=== PATIENT | female | born 1965 | race Caucasian/White ===

== ENCOUNTER → 2017-09-25 18:19 | Outpatient (REF) | payer OTHER, SELFPAY | LOC: NCHCN 18:19 | PROVIDERS: PCP Nurse Practitioner Family; Visit Provider Physician Assistant Medical | DX: M54.5 Low back pain (principal) | CPT/HCPCS: 87086 ==

== ENCOUNTER → 2017-10-17 02:23 | Outpatient (CLI) | payer OTHER, SELFPAY ==
--- NOTE | 2017-10-17 16:48 | DI.REPORT_ITS ---
SYMPTOM/DIAGNOSIS: AFTER CARE CUSTODIAL USE OF STEROIDS, Z51.81 DEXA SCAN: A scanogram of the dorsolumbar spine is unremarkable. For the left hip, a T score of -1.7 and a Z score of -1.1 are consistent with osteopenia and are consistent with a -22.5% decrease in mineralization when compared with the 05/12/2005 exam. For the lumbar spine, a T score of -2.4 and a Z score of -1.4 are consistent with osteopenia and an increased fracture risk and represent a -17.1% interval decrease in mineralization when compared with the prior study of 05/12/2005. For the left forearm, a T score of -2.1 and a Z score of -1.2 are consistent with osteopenia and an increased fracture risk.
== END ==
PROVIDERS: PCP Nurse Practitioner Family; Visit Provider Physician Assistant Medical
DX: M85.88 Other specified disorders of bone density and structure, other site (principal); Z51.81 Encounter for therapeutic drug level monitoring; Z79.52 Long term (current) use of systemic steroids
CPT/HCPCS: 77080

== ENCOUNTER 2017-10-27 09:30 | Outpatient (CLI) | payer OTHER, SELFPAY ==
[2017-10-27 10:38] LABS: ALT 30 U/L (12-78); AST 34 U/L (15-37); Albumin 3.7 g/dL (3.4-5.0); Alkaline Phosphatase 78 U/L (46-116); Bilirubin, Total 0.4 mg/dL (0.2-1.0); Total Protein 7.6 g/dL (6.4-8.2)
[2017-10-27 10:54] LABS: Iron 28 ug/dL (50-175); Total Iron Binding Capacity 419 ug/dL (250-450); Transferrin Sat 7 % (15-50)
== END 2017-10-27 09:50 ==
PROVIDERS: PCP Nurse Practitioner Family; Visit Provider Internal Medicine
DX: K75.4 Autoimmune hepatitis (principal); K74.60 Unspecified cirrhosis of liver
CPT/HCPCS: 36415; 80076; 83540; 83550

== ENCOUNTER 2017-11-01 07:07 | Outpatient (CLI) | payer OTHER, SELFPAY ==
[2017-11-01 10:59] LABS: Abs Immature Grans 0.01 k/cumm (0.0-0.09); Absolute Basophil Count 0.09 k/cumm (0.0-0.2); Absolute Eosinophil Count 0.01 k/cumm (0.0-0.7); Absolute Neutrophil Count 3.36 k/cumm (1.2-6.7); Basophils % 1.9; Eosinophils % 0.2; HCT 31.9 % (36.0-46.0); HGB 9.9 g/dL (12.0-15.5); Immature Grans % 0.2; Lymphocytes % 21.4; Mean Corpuscular Hemoglobin 24.8 pg (27.0-33.0); Mean Corpuscular Volume 79.9 fL (80-95); Mean Platelet Volume 9.8 fL (8.0-11.0); Monocytes % 4.3; Platelet Count 212 x1000/uL (130-400); RBC 3.99 m/cumm (4.00-5.20); RBC Distribution Width 18.9 % (11.7-14.6); White Blood Cell Count 4.67 k/cumm (4.4-10.8)
[2017-11-01 12:14] LABS: Ferritin 6 ng/mL (8-388); Vitamin B12 629 pg/mL (193-986)
[2017-11-03 12:48] LABS: Ascorbic Acid (Vit C), Plasma 0.2 mg/dL (0.4 - 2.0)
[2017-11-03 15:36] LABS: Thiamine (Vitamin B1), WB 122 nmol/L (70-180)
== END 2017-11-01 07:27 ==
LOC: LBO 07:17 → NCHCO 07:38
PROVIDERS: PCP Nurse Practitioner Family; Visit Provider Physician Assistant Medical
DX: D64.9 Anemia, unspecified (principal); K75.4 Autoimmune hepatitis
CPT/HCPCS: 36415; 82180; 82607; 82728; 84425; 85025

== ENCOUNTER 2017-11-03 10:27 | Outpatient (RCR) | payer OTHER, SELFPAY ==
[2017-11-03] MEDS: IRON SUCROSE COMPLEX 200 MG in Normal Saline 100 ML 110 MG IVPB (11:16)
[2017-11-03] MEDS: Normal Saline Flush 10 ML SYR IVP (11:17)
== END 2017-11-19 23:59 | disposition home or self-care (01) ==
LOC: INF 10:27
PROVIDERS: PCP Nurse Practitioner Family; Visit Provider Family Medicine
DX: D50.9 Iron deficiency anemia, unspecified (principal)
CPT/HCPCS: 96365; J1756

== ENCOUNTER 2017-11-13 15:23 | Outpatient (CLI) | payer OTHER, SELFPAY ==
--- NOTE | 2017-11-13 13:17 | DI.RAD_ITS ---
SYMPTOMS/DIAGNOSIS: RIGHT HIP PAIN PELVIS AND RIGHT HIP: Two views. Comparison is 03/17/13. There is mild narrowing of the right hip joint space. Subchondral sclerosis is present. Osteophytes are seen arising from the right femoral head. No acute fracture or dislocation is seen. The left hip is well maintained, as are the sacroiliac joints and symphysis pubis. Suture material is seen overlying the lower pelvis. The soft tissues are otherwise unremarkable. IMPRESSION: Mild to moderate degenerative changes of the right hip.
== END 2017-11-13 15:43 ==
PROVIDERS: PCP Nurse Practitioner Family; Visit Provider Student in an Organized Health Care Education/Training Program
DX: M25.551 Pain in right hip (principal); M16.11 Unilateral primary osteoarthritis, right hip
CPT/HCPCS: 73502

== ENCOUNTER 2017-11-30 01:55 | Outpatient (RCR) | payer OTHER, SELFPAY ==
[2017-11-30] MEDS: IRON SUCROSE COMPLEX 200 MG in Normal Saline 100 ML 110 MG IVPB (07:13)
[2017-11-30] MEDS: Normal Saline Flush 10 ML SYR IVP (07:21)
== END 2017-12-20 23:59 | disposition home or self-care (01) ==
LOC: INF 01:55
PROVIDERS: PCP Nurse Practitioner Family; Visit Provider Family Medicine
DX: D50.9 Iron deficiency anemia, unspecified (principal)
CPT/HCPCS: 96365; J1756

== ENCOUNTER 2017-12-08 01:09 | Outpatient (CLI) | payer OTHER, SELFPAY ==
[2017-12-08 09:04] LABS: CREATININE 0.73 mg/dL (0.55-1.02)
--- NOTE | 2017-12-08 09:23 | DI.CT_ITS ---
SYMPTOM/DIAGNOSIS: TOBACCO USE DISORDER, F17.[address]: A noncontrast chest CT was performed. Images obtained through the upper abdomen show unremarkable appearance of visualized portions of the liver, spleen , kidneys, adrenals and pancreas. There appears to have been previous gastric surgery. No pleural effusion or pleural based mass identified. No gross mediastinal or hilar adenopathy by noncontrast criteria. The lungs are clear with a 3 mm. in diameter, triangular shaped left lower lobe nodule with appearance suggesting intrapulmonary lymph node. No suspicious nodule identified. CONCLUSION: Negative chest CT. Follow up chest CT suggested in 12 months to re-evaluate probably benign 3 mm. left lower lobe nodule.
--- NOTE | 2017-12-08 09:35 | DI.CT_ITS ---
SYMPTOM/DIAGNOSIS: HEMATURIA, R31.[address]: CT examination of the abdomen and pelvis was performed utilizing CT urogram protocol. A noncontrast examination shows splenic calcifications but no urinary tract calcification. There is evidence of previous gastric surgery and previous abdominal ventral hernia repair surgery. Liver is unremarkable in appearance. Spleen shows a non enhancing, low attenuation, lenticular 33 by 11 mm. in diameter medial region of decreased attenuation suggesting a small subcapsular fluid collection of the spleen. The pancreas appears intact. Gallbladder non visualized and may have been surgically removed. No biliary dilatation is seen. No vascular abnormality identified on venous phase imaging. No abdominal or pelvic adenopathy. No recurrent hernia. No focal bowel pathology. The renal cortex shows normal symmetrical enhancement bilaterally. No nephrolithiasis, ureterolithiasis or hydronephrosis. No renal mass identified. Urinary bladder is unremarkable in appearance on delayed imaging. Ureters appear unremarkable on delayed imaging. CONCLUSION: Negative CT urogram. Incidental finding of small subcapsular splenic fluid collection is nonspecific but could represent an old hematoma, please correlate clinically.
[2017-12-08] MEDS: Omnipaque 350 MG/ML 100 ML BTL IJ (10:47)
== END 2017-12-08 01:29 ==
PROVIDERS: PCP Nurse Practitioner Family; Visit Provider Physician Assistant Medical
DX: F17.200 Nicotine dependence, unspecified, uncomplicated (principal); R91.1 Solitary pulmonary nodule; R31.9 Hematuria, unspecified
CPT/HCPCS: 36415; 71250; 74178; 82565; J3490

== ENCOUNTER 2018-01-16 14:01 | Outpatient (REF) | payer OTHER, SELFPAY | END 2018-01-16 14:21 | LOC: LBN 14:01 | PROVIDERS: PCP Nurse Practitioner Family; Visit Provider Nurse Practitioner Gerontology | DX: R31.9 Hematuria, unspecified (principal) | CPT/HCPCS: 81015 ==

== ENCOUNTER 2018-01-18 13:43 | Outpatient (REF) | payer OTHER, SELFPAY ==
[2018-01-18 16:22] LABS: Bacteria Many HPF (Negative); C & S Indicated? No/Sq. Contamination; Casts Negative LPF (Negative); Crystals Many Amorphous HPF (Negative); Epithelial Cells Many HPF (Negative); Mucus Heavy (Negative); RBC 20-50 (0-2); WBC 20-50 HPF (0-5)
== END 2018-01-18 14:03 ==
LOC: LBN 13:43
PROVIDERS: PCP Nurse Practitioner Family; Visit Provider Nurse Practitioner Gerontology
DX: R31.9 Hematuria, unspecified (principal)
CPT/HCPCS: 81015

== ENCOUNTER 2018-06-09 14:52 | Emergency (ER) | payer OTHER, SELFPAY ==
[2018-06-09 15:11] VITALS: BP 108/62; PULSE 78; RESP 18; TEMP 36.6; O2SAT 99
[2018-06-09 16:05] LABS: Bilirubin Negative (Negative); Blood Trace-intact (Negative); Clarity Clear; Glucose Negative (Negative); Ketones Trace mg/dL (Negative); Leukocyte Esterase Negative (Negative); Nitrite Negative (Negative); Specific Gravity >= 1.030 (1.005-1.025); Urobilinogen 0.2 EU/dL (Up TO 0.2)
[2018-06-09 16:20] LABS: Bacteria Negative HPF (Negative); C & S Indicated? No; Casts Negative LPF (Negative); Crystals Negative HPF (Negative); Epithelial Cells Negative HPF (Negative); Mucus Negative (Negative); Other Cells Negative (Negative); WBC 0-2 HPF (0-5)
[2018-06-09 16:22] LABS: Abs Immature Grans 0.01 k/cumm (0.0-0.09); Absolute Basophil Count 0.03 k/cumm (0.0-0.2); Absolute Eosinophil Count 0.03 k/cumm (0.0-0.7); Absolute Lymphocyte Count 1.77 k/cumm (1.2-3.4); Absolute Monocyte Count 0.39 k/cumm (0.11-0.7); Absolute Neutrophil Count 3.12 k/cumm (1.2-6.7); Basophils % 0.6; Eosinophils % 0.6; HCT 38.5 % (36.0-46.0); HGB 12.4 g/dL (12.0-15.5); Immature Grans % 0.2; Lymphocytes % 33.1; Mean Corp. HGB Concentration 32.2 g/dL (32.0-36.0); Mean Corpuscular Hemoglobin 30.8 pg (27.0-33.0); Mean Corpuscular Volume 95.8 fL (80-95); Mean Platelet Volume 10.4 fL (8.0-11.0); Monocytes % 7.3; Neutrophils % 58.2; Platelet Count 209 x1000/uL (130-400); RBC 4.02 m/cumm (4.00-5.20); White Blood Cell Count 5.35 k/cumm (4.4-10.8)
[2018-06-09 16:39] LABS: ALT 37 U/L (12-78); AST 30 U/L (15-37); Albumin 3.5 g/dL (3.4-5.0); Alkaline Phosphatase 79 U/L (46-116); Anion Gap 6.3 mmol/L (3-11); BUN 17 mg/dL (7-18); Bilirubin, Total 0.2 mg/dL (0.2-1.0); CO2 30.7 mmol/L (21.0-32.0); Calcium 8.4 mg/dL (8.5-10.1); Chloride 102 mmol/L (98-107); Glucose 81 mg/dL (70-100); Potassium 4.1 mmol/L (3.5-5.1); Sodium 139 mmol/L (136-145); Total Protein 7.7 g/dL (6.4-8.2)
--- NOTE | 2018-06-09 17:09 | W.ED.GENAD ---
Discharge Plan Disposition Patient Disposition: HOME Condition: Stable Discharge Details Chief Complaint: Headache Clinical Impression: Sinusitis, Acute flank pain Primary Care Provider: Deborah Rao ED Provider: Stiven Carrillo Home Meds and New Rx's Prescriptions: Continued azathioprine 50 MG tablet 50 mg PO DAILY RF: 0 tramadol 50 MG tablet 50 mg PO PRN PRNRF: 0 Metamucil [facility] Fiber 660 GM powder 1 tbs PO DAILY RF: 0 hydroxychloroquine 200 MG tablet 200 mg PO BID RF: 0 Otc Lax RF: 0 prednisone 20 MG tablet 20 mg PO DAILY Qty: 14 RF: 1 ibuprofen 200 mg Capsule 400 mg PO DIRECTED RF: 0 Tylenol Sinus Severe 5-325-200 mg Tablet 2 tab RF: 0 Discharge Instructions Instructions: Sinusitis (ED), Flank Pain (ED) Additional Instructions: Please stay well-hydrated during illness and take [id number] Flonase 1 to 2 sprays each nostril daily for the next week and use Sudafed as needed for nasal congestion just take as directed on packaging. Return immediately to the emergency department for any new or worsening symptoms, fever chills, worsening flank pain or problems with urination. If not improving over the next couple days please follow-up with your primary care provider for reassessment as needed Referrals: Deborah Rao [Primary Care Provider] - (As needed for reassessment) Discharge Data Discharge Date/Time-TO BE ENTERED AT DEPARTURE: 06/09/18 17:20 Medical Decision Making Patient presenting the emergency department for chief complaint of sinus pain. Patient states approximately 10 days ago she began having left-sided sinus pressure and saw her primary care provider that put her on ciprofloxacin. She took this for the full course and finished 4 days ago but throughout the therapy she had only minimal improvement of left-sided facial discomfort and then developed right-sided facial discomfort and sinus pressure while on the ciprofloxacin. This discomfort has continued in spite of anabolic therapy. Patient then states over the past couple days she has noted some flank pain and is concern for a urinary tract infection. Patient denies any hematuria, dysuria or burning with urination. Physical exam shows frontal ethmoid and maxillary sinus tenderness on the right side but not on left side, no lymphadenopathy, afebrile nontoxic well-appearing patient with no obvious neurological dysfunction. Patient does note some flank pain on the right side but states that it is starting from the back and radiating through the flank. Patient denies any injury or trauma or overuse that would have caused back pain. Patient states ongoing liver issues with standing orders for urinalysis and liver testing. Patient is requesting testing due to her use of acetaminophen recently for her cold symptoms along with ibuprofen for her sinus pain. I feel that this is reasonable. Review of labs show no leukocytosis, no anemia, within normal range of kidney function and no acute hepatic abnormalities on CMP are noted. Patient reassessed and continued to state discomfort to the flank. She was offered CT scan for question of secondary etiologies including kidney stones or hepatic dysfunction. Patient denies CT scan at this time and states she would prefer to go home. Given that antibiotics did not improve patient's symptoms and she is afebrile nontoxic in appearance I do not feel that secondary antibiotics for the sinus complaint are needed and concern for more viral or allergenic etiology. Again given non-worrisome exam findings I do not feel that head CT is needed or warranted but this was offered to patient which she did also refuse CT scan of the sinuses. patient was recommended to use Sudafed and Flonase for her symptoms and follow-up with her primary care provider for reassessment. After discussion of diagnosis and plan of care patient has no further needs, questions, or concerns and states clear understanding to return to the emergency department for any worsening symptoms. HPI General Mode of arrival: ambulatory. Date/Time Provider Initiated Documentation: 06/09/18 15:27. Limitations to Documentation: no limitations. Information obtained by: patient and RN notes reviewed. History of Present Illness 53 year old F presents to the emergency department with the chief complaint of sinus pressure, described as moderate, with intensity rated at 9. Quality is described as aching, and is localized to the face. Patient started experiencing this day(s) (10) and it has been constant. No relieving factors improve symptom(s), Related Data Home Medications Medication Instructions Recorded Confirmed azathioprine 50 mg PO DAILY 01/14/13 06/09/18 tramadol 50 mg PO PRN PRN 01/14/13 06/09/18 Metamucil [facility] Fiber 1 tbs PO DAILY 03/17/13 06/09/18 Otc Lax 08/19/14 01/30/18 hydroxychloroquine 200 mg PO BID 08/19/14 06/09/18 prednisone 20 mg PO DAILY #14 tab 08/19/14 06/09/18 Tylenol Sinus Severe 2 tab 06/09/18 ibuprofen 400 mg PO DIRECTED 06/09/18 06/09/18 Previous Rx's Medication Instructions Recorded prednisone 20 mg PO DAILY #14 tab 08/19/14 Allergies Allergy/AdvReac Type Severity Reaction Status Date / Time enoxaparin sodium Allergy Unverified 06/09/18 15:15 [From Lovenox] sumatriptan [From Imitrex] Allergy Unverified 06/09/18 15:15 sumatriptan succinate Allergy Unverified 06/09/18 15:15 [From Imitrex] acetaminophen [From Tylenol] AdvReac hx Unverified 06/09/18 15:15 hepeatits e NSAIDS (Non-Steroidal AdvReac Unverified 06/09/18 15:15 Anti-Inflamma General Stated Complaint: Headache MANDA: 3 Review of Systems Constitutional Reports chills, Denies fever(s) and Reports malaise Eyes Denies change in vision ENT Reports as per HPI, Reports nasal congestion, Reports sinus pain, Reports sinus pressure and Reports sore throat Cardiovascular Denies chest pain Respiratory Denies cough Gastrointestinal Denies abdominal pain, Denies nausea and Denies vomiting Genitourinary Reports flank pain Musculoskeletal Reports back pain Integumentary/Breasts Denies rash PFSH Medical History ARTHRITIS NOS AUTOIMMUNE HEPATIT GASTRIC BYPASS H/O ANXIETY/DEPRESSION H/O CERVICAL CA H/O HTN Hyperlipidemia Intertrigo Obesity SURGICALLY INDUCED MENOPAUSE TOBACCO USE DISORD Surgical History Abdominal hysterectomy Appendectomy Cholecystectomy Gastric Bypass Oophrectomy, Left Oophrectomy, Right Tonsillectomy and adenoidectomy Social History Smoking/Tobacco Use Status: Current-Occasional Alcohol Intake: never Drug use: Never Do you feel safe at home: Yes Do you feel safe in your relationship?: Yes Exam Const General: cooperative, comfortable and no acute distress Orientation: alert and awake HENMT Head: normal to inspection, normocephalic and atraumatic Ears: hearing grossly normal bilaterally and TM's normal bilaterally General nose exam: external nose normal Face and sinus: no erythema and sinus tenderness (right side) frontal, ethmoid and maxillary Mouth: oral mucosae normal, no drooling, no muffled voice and no trismus Throat: posterior oropharynx normal, tonsils normal and uvula midline Neck Neck: normal visual inspection, full ROM, no lymphadenopathy, no meningeal signs, trachea midline and supple Resp Effort & Inspection: normal respiratory effort and able to speak in complete sentences Auscultation: clear to auscultation bilaterally Cardio Rate: regular rate Rhythm: regular rhythm Heart Sounds: S1 normal, S2 normal, normal S1 and S2, no click, no gallops, no murmurs and no rubs Back/Spine/Pelvis Thoracic/Lumbar Spine: paraspinal tenderness (bilateral difuse), No thoraco-lumbar ROM limited, No thoracic spinal tenderness and No lumbar spinal tenderness Skin General skin exam: no rashes or lesions noted and dry skin (warm) Neuro General: alert, awake, oriented x3, gait normal and moves all extremities Cognition: normal cognition Speech: speech normal Course Vital Signs Temperature 36.6 C 06/09/18 15:11 Pulse 78 06/09/18 15:11 Respiratory Rate 18 06/09/18 15:11 Blood Pressure 108/62 06/09/18 15:11 Pulse Oximetry 99 06/09/18 15:11 Temperature 36.6 C 06/09/18 15:11 Temperature Source Temporal Artery Scan 06/09/18 15:11 Pulse 78 06/09/18 15:11 Respiratory Rate 18 06/09/18 15:11 Respiratory Effort 06/09/18 16:21 Blood Pressure 108/62 06/09/18 15:11 Blood Pressure Position Sitting 06/09/18 15:11 Pulse Oximetry 99 06/09/18 15:11 Oxygen Delivery Method Room Air 06/09/18 15:11 Oxygen Flow Rate 0 06/09/18 15:11 Pain Level 10 06/09/18 15:11 Lab/Test Results Lab/Test Results: Laboratory Tests Range/Units 06/09/18 06/09/18 06/09/18 15:55 16:05 16:05 WBC (4.4-10.8) k/cumm 5.35 RBC (4.00-5.20) m/cumm 4.02 Hgb (12.0-15.5) g/dL 12.4 Hct (36.0-46.0) % 38.5 MCV (80-95) fL 95.8 H MCH (27.0-33.0) pg 30.8 MCHC (32.0-36.0) g/dL 32.2 RDW (11.7-14.6) % 16.0 H Plt Count (130-400) x1000/uL 209 MPV (8.0-11.0) fL 10.4 Immature Gran % 0.2 Neutrophils % 58.2 Lymphocytes % 33.1 Monocytes % 7.3 Eosinophils % 0.6 Basophils % 0.6 Absolute Neutrophils (1.2-6.7) k/cumm 3.12 Absolute Lymphocytes (1.2-3.4) k/cumm 1.77 Absolute Monocytes (0.11-0.7) k/cumm 0.39 Absolute Eosinophils (0.0-0.7) k/cumm 0.03 Absolute Basophils (0.0-0.2) k/cumm 0.03 Sodium (136-145) mmol/L 139 Potassium (3.5-5.1) mmol/L 4.1 Chloride (98-107) mmol/L 102 Carbon Dioxide (21.0-32.0) mmol/L 30.7 Anion Gap (3-11) mmol/L 6.3 BUN (7-18) mg/dL 17 Creatinine (0.55-1.02) mg/dL 0.90 Estimated GFR/1.73 m2 (mL/min/1.73m2) >= 60.00 Glucose (70-100) mg/dL 81 Calcium (8.5-10.1) mg/dL 8.4 L Total Bilirubin (0.2-1.0) mg/dL 0.2 AST (15-37) U/L 30 ALT (12-78) U/L 37 Alkaline Phosphatase (46-116) U/L 79 Total Protein (6.4-8.2) g/dL 7.7 Albumin (3.4-5.0) g/dL 3.5 Urine Color (Yellow) Yellow Urine Clarity Clear Urine pH (5-8) 7.0 Ur Specific [place] (1.005-1.025) >= 1.030 H Urine Protein (Negative) mg/dL Trace H Urine Ketones (Negative) mg/dL Trace H Urine Blood (Negative) Trace-intact H Urine Nitrite (Negative) Negative Urine Bilirubin (Negative) Negative Urine Urobilinogen (Up TO 0.2) EU/dL 0.2 Ur Leukocyte Esterase (Negative) Negative Urine RBC (0-2) 3-5 H Urine WBC (0-5) HPF 0-2 Ur Epithelial Cells (Negative) HPF Negative Urine Crystals (Negative) HPF Negative Urine Bacteria (Negative) HPF Negative Urine Casts (Negative) LPF Negative Urine Mucus (Negative) Negative Urine Other (Negative) Negative Ur Culture Indicated? No Urine Glucose (Negative) mg/dL Negative
[2018-06-09 17:19] VITALS: BP 108/62; PULSE 78; RESP 18; TEMP 36.6; O2SAT 99
== END 2018-06-09 17:20 | disposition home or self-care (01) ==
PROVIDERS: Emergency Provider Nurse Practitioner Family; PCP Nurse Practitioner Family
DX: J01.90 Acute sinusitis, unspecified (principal); R10.11 Right upper quadrant pain; K75.4 Autoimmune hepatitis; I10 Essential (primary) hypertension; F17.210 Nicotine dependence, cigarettes, uncomplicated
CPT/HCPCS: 36415; 80053; 99283; 81003; 81015; 85025

== ENCOUNTER 2018-06-15 15:16 | Outpatient (CLI) | payer OTHER, SELFPAY ==
[2018-06-15 18:32] LABS: ESR 30 MM/HR (0-30)
== END 2018-06-15 15:36 ==
PROVIDERS: PCP Nurse Practitioner Family; Visit Provider Family Medicine
DX: R51 Headache (principal)
CPT/HCPCS: 36415; 85652

== ENCOUNTER 2018-10-01 18:27 | Outpatient (REF) | payer OTHER, SELFPAY | END 2018-10-01 18:47 | LOC: NCHCN 18:27 | PROVIDERS: PCP Nurse Practitioner Family; Visit Provider Nurse Practitioner Family | DX: R10.9 Unspecified abdominal pain (principal) | CPT/HCPCS: 87086 ==

== ENCOUNTER 2018-10-05 16:34 | Outpatient (REF) | payer OTHER, SELFPAY ==
[2018-10-05 19:18] LABS: Calculated LDL 111 mg/dL; Cholesterol 172 mg/dL (50-200); Glucose 87 mg/dL (70-100); HDL Cholesterol 40 mg/dL (40-60); Triglyceride 108 mg/dL (30-150)
== END 2018-10-05 16:54 ==
LOC: NCHCN 16:34
PROVIDERS: PCP Nurse Practitioner Family; Visit Provider Nurse Practitioner Family
DX: Z00.00 Encounter for general adult medical examination without abnormal findings (principal); Z13.1 Encounter for screening for diabetes mellitus; Z13.220 Encounter for screening for lipoid disorders
CPT/HCPCS: 80061; 82947; 83721

== ENCOUNTER 2018-10-15 01:17 | Outpatient (CLI) | payer OTHER, SELFPAY ==
--- NOTE | 2018-10-15 12:41 | DI.MAMMO_ITS ---
SYMPTOM/DIAGNOSIS: SCREENING, [facility] Z00.00 BILATERAL SCREENING MAMMOGRAM: Mammograms were interpreted according to the usual protocol including computer analysis with CAD system, tomosynthesis and C view imaging. Comparison is made with 2015. The breasts are composed of scattered fibroglandular densities, breast density category B. No suspicious masses or suspicious microcalcifications are seen. There has been no significant change. IMPRESSION: Category 1, negative mammogram. Yearly screening mammography is recommended. Breast density category B. SA ASSESSMENT OF FINDINGS: Negative. Category 1. Patient will receive a letter notifying them of these results. BI-RADS category B. There are scattered areas of fibroglandular density.
== END 2018-10-15 01:37 ==
PROVIDERS: PCP Nurse Practitioner Family; Visit Provider Nurse Practitioner Family
DX: Z00.00 Encounter for general adult medical examination without abnormal findings (principal); Z12.31 Encounter for screening mammogram for malignant neoplasm of breast
CPT/HCPCS: 77063; 77067

== ENCOUNTER 2019-01-05 06:34 | Outpatient (CLI) | payer OTHER, SELFPAY ==
[2019-01-05 10:32] LABS: ALT 142 U/L (14-59); AST 87 U/L (15-37); Albumin 3.8 g/dL (3.4-5.0); Alkaline Phosphatase 89 U/L (46-116); Bilirubin, Total 0.4 mg/dL (0.2-1.0); Total Protein 7.6 g/dL (6.4-8.2)
== END 2019-01-05 06:54 ==
PROVIDERS: PCP Nurse Practitioner Family; Visit Provider Internal Medicine Gastroenterology
DX: K75.4 Autoimmune hepatitis (principal)
CPT/HCPCS: 36415; 80076

== ENCOUNTER 2019-01-12 03:58 | Outpatient (CLI) | payer OTHER, SELFPAY ==
[2019-01-12 11:23] LABS: ALT 93 U/L (14-59); AST 51 U/L (15-37); Albumin 3.6 g/dL (3.4-5.0); Alkaline Phosphatase 76 U/L (46-116); Bilirubin, Direct 0.14 mg/dL (0.00-0.20); Bilirubin, Total 0.5 mg/dL (0.2-1.0); Total Protein 7.1 g/dL (6.4-8.2)
== END 2019-01-12 04:18 ==
PROVIDERS: PCP Nurse Practitioner Family; Visit Provider Internal Medicine Gastroenterology
DX: K75.4 Autoimmune hepatitis (principal)
CPT/HCPCS: 36415; 80076

== ENCOUNTER 2019-02-01 06:18 | Outpatient (CLI) | payer OTHER, SELFPAY ==
[2019-02-01 08:13] LABS: ALT 55 U/L (14-59); AST 38 U/L (15-37); Albumin 3.5 g/dL (3.4-5.0); Alkaline Phosphatase 58 U/L (46-116); Bilirubin, Total 0.4 mg/dL (0.2-1.0); Total Protein 6.7 g/dL (6.4-8.2)
== END 2019-02-01 06:38 ==
PROVIDERS: PCP Nurse Practitioner Family; Visit Provider Internal Medicine Gastroenterology
DX: K75.4 Autoimmune hepatitis (principal)
CPT/HCPCS: 36415; 80076

== ENCOUNTER 2019-02-08 01:15 | Outpatient (CLI) | payer OTHER, SELFPAY ==
[2019-02-08 08:19] LABS: Abs Immature Grans 0.01 k/cumm (0.0-0.09); Absolute Basophil Count 0.02 k/cumm (0.0-0.2); Absolute Eosinophil Count 0.01 k/cumm (0.0-0.7); Absolute Lymphocyte Count 0.93 k/cumm (1.2-3.4); Absolute Monocyte Count 0.24 k/cumm (0.11-0.7); Absolute Neutrophil Count 4.45 k/cumm (1.2-6.7); Basophils % 0.4; Eosinophils % 0.2; HCT 38.1 % (36.0-46.0); HGB 11.9 g/dL (12.0-15.5); Immature Grans % 0.2; Lymphocytes % 16.4; Mean Corp. HGB Concentration 31.2 g/dL (32.0-36.0); Mean Corpuscular Volume 89.6 fL (80-95); Monocytes % 4.2; Neutrophils % 78.6; Platelet Count 213 x1000/uL (130-400); RBC 4.25 m/cumm (4.00-5.20); RBC Distribution Width 15.6 % (11.7-14.6); White Blood Cell Count 5.66 k/cumm (4.4-10.8)
[2019-02-08 09:19] LABS: ALT 47 U/L (14-59); AST 33 U/L (15-37); Albumin 3.6 g/dL (3.4-5.0); Alkaline Phosphatase 63 U/L (46-116); Anion Gap 9.4 mmol/L (3-11); BUN 15 mg/dL (7-18); Bilirubin, Total 0.4 mg/dL (0.2-1.0); CO2 28.6 mmol/L (21.0-32.0); CREATININE 0.85 mg/dL (0.55-1.02); Calcium 8.6 mg/dL (8.5-10.1); Chloride 105 mmol/L (98-107); Glucose 91 mg/dL (74-106); Sodium 143 mmol/L (136-145)
== END 2019-02-08 01:35 ==
PROVIDERS: PCP Nurse Practitioner Family; Visit Provider Internal Medicine Gastroenterology
DX: K75.4 Autoimmune hepatitis (principal)
CPT/HCPCS: 36415; 80048; 80076; 85025

== ENCOUNTER 2019-03-01 05:54 | Outpatient (CLI) | payer OTHER, SELFPAY ==
[2019-03-01 08:19] LABS: Abs Immature Grans 0.01 k/cumm (0.0-0.09); Absolute Basophil Count 0.05 k/cumm (0.0-0.2); Absolute Eosinophil Count 0.02 k/cumm (0.0-0.7); Absolute Lymphocyte Count 0.86 k/cumm (1.2-3.4); Absolute Monocyte Count 0.26 k/cumm (0.11-0.7); Absolute Neutrophil Count 3.66 k/cumm (1.2-6.7); Eosinophils % 0.4; HCT 37.9 % (36.0-46.0); HGB 11.7 g/dL (12.0-15.5); Immature Grans % 0.2 %; Lymphocytes % 17.7; Mean Corp. HGB Concentration 30.9 g/dL (32.0-36.0); Mean Corpuscular Hemoglobin 27.5 pg (27.0-33.0); Mean Platelet Volume 9.7 fL (8.0-11.0); Monocytes % 5.3; Neutrophils % 75.4; Platelet Count 195 x1000/uL (130-400); RBC 4.26 m/cumm (4.00-5.20); White Blood Cell Count 4.86 k/cumm (4.4-10.8)
[2019-03-01 08:35] LABS: ALT 42 U/L (14-59); AST 41 U/L (15-37); Albumin 3.5 g/dL (3.4-5.0); Alkaline Phosphatase 70 U/L (46-116); Anion Gap 8.5 mmol/L (3-11); BUN 13 mg/dL (7-18); Bilirubin, Direct 0.07 mg/dL (0.00-0.20); Bilirubin, Total 0.3 mg/dL (0.2-1.0); CO2 28.5 mmol/L (21.0-32.0); CREATININE 0.66 mg/dL (0.55-1.02); Calcium 8.5 mg/dL (8.5-10.1); Chloride 107 mmol/L (98-107); Glucose 93 mg/dL (74-106); Sodium 144 mmol/L (136-145)
== END 2019-03-01 06:14 ==
PROVIDERS: PCP Nurse Practitioner Family; Visit Provider Internal Medicine Gastroenterology
DX: K75.4 Autoimmune hepatitis (principal)
CPT/HCPCS: 36415; 80048; 80076; 85025

== ENCOUNTER 2019-03-22 03:11 | Outpatient (CLI) | payer OTHER, SELFPAY ==
[2019-03-22 08:55] LABS: Abs Immature Grans 0.01 k/cumm (0.0-0.09); Absolute Basophil Count 0.05 k/cumm (0.0-0.2); Absolute Eosinophil Count 0.03 k/cumm (0.0-0.7); Absolute Lymphocyte Count 1.12 k/cumm (1.2-3.4); Absolute Monocyte Count 0.37 k/cumm (0.11-0.7); Absolute Neutrophil Count 3.08 k/cumm (1.2-6.7); Basophils % 1.1; Eosinophils % 0.6; HCT 38.4 % (36.0-46.0); HGB 12.2 g/dL (12.0-15.5); Immature Grans % 0.2 %; Mean Corp. HGB Concentration 31.8 g/dL (32.0-36.0); Mean Corpuscular Hemoglobin 27.9 pg (27.0-33.0); Mean Corpuscular Volume 87.7 fL (80-95); Mean Platelet Volume 11.1 fL (8.0-11.0); Monocytes % 7.9; Neutrophils % 66.2; Platelet Count 200 x1000/uL (130-400); RBC 4.38 m/cumm (4.00-5.20); RBC Distribution Width 16.6 % (11.7-14.6); White Blood Cell Count 4.66 k/cumm (4.4-10.8)
[2019-03-22 09:50] LABS: ALT 45 U/L (14-59); AST 36 U/L (15-37); Albumin 3.7 g/dL (3.4-5.0); Alkaline Phosphatase 65 U/L (46-116); Anion Gap 7.4 mmol/L (3-11); BUN 15 mg/dL (7-18); Bilirubin, Direct 0.12 mg/dL (0.00-0.20); Bilirubin, Total 0.4 mg/dL (0.2-1.0); CO2 29.6 mmol/L (21.0-32.0); CREATININE 0.84 mg/dL (0.55-1.02); Calcium 8.4 mg/dL (8.5-10.1); Chloride 105 mmol/L (98-107); Glucose 72 mg/dL (74-106); Potassium 4.1 mmol/L (3.5-5.1); Sodium 142 mmol/L (136-145); Total Protein 6.9 g/dL (6.4-8.2)
== END 2019-03-22 03:31 ==
PROVIDERS: PCP Nurse Practitioner Family; Visit Provider Internal Medicine Gastroenterology
DX: K75.4 Autoimmune hepatitis (principal)
CPT/HCPCS: 36415; 80048; 80076; 85025

== ENCOUNTER 2019-04-19 05:54 | Outpatient (CLI) | payer OTHER, SELFPAY ==
[2019-04-19 10:57] LABS: Abs Immature Grans 0.01 k/cumm (0.0-0.09); Absolute Basophil Count 0.04 k/cumm (0.0-0.2); Absolute Eosinophil Count 0.01 k/cumm (0.0-0.7); Absolute Lymphocyte Count 1.16 k/cumm (1.2-3.4); Absolute Monocyte Count 0.26 k/cumm (0.11-0.7); Absolute Neutrophil Count 3.32 k/cumm (1.2-6.7); Basophils % 0.8; Eosinophils % 0.2; HCT 36.9 % (36.0-46.0); HGB 11.4 g/dL (12.0-15.5); Immature Grans % 0.2 %; Lymphocytes % 24.2; Mean Corp. HGB Concentration 30.9 g/dL (32.0-36.0); Mean Corpuscular Volume 87.2 fL (80-95); Mean Platelet Volume 10.5 fL (8.0-11.0); Monocytes % 5.4; Neutrophils % 69.2; Platelet Count 201 x1000/uL (130-400); RBC 4.23 m/cumm (4.00-5.20); RBC Distribution Width 17.4 % (11.7-14.6)
[2019-04-19 12:31] LABS: ALT 55 U/L (14-59); AST 52 U/L (15-37); Albumin 3.7 g/dL (3.4-5.0); Alkaline Phosphatase 73 U/L (46-116); Anion Gap 7.1 mmol/L (3-11); BUN 14 mg/dL (7-18); Bilirubin, Direct 0.11 mg/dL (0.00-0.20); Bilirubin, Total 0.3 mg/dL (0.2-1.0); CO2 27.9 mmol/L (21.0-32.0); CREATININE 0.84 mg/dL (0.55-1.02); Calcium 8.4 mg/dL (8.5-10.1); Chloride 107 mmol/L (98-107); Glucose 132 mg/dL (74-106); Potassium 4.5 mmol/L (3.5-5.1); Sodium 142 mmol/L (136-145); Total Protein 6.8 g/dL (6.4-8.2)
== END 2019-04-19 06:14 ==
PROVIDERS: PCP Nurse Practitioner Family; Visit Provider Internal Medicine Gastroenterology
DX: K75.4 Autoimmune hepatitis (principal)
CPT/HCPCS: 36415; 80048; 80076; 85025

== ENCOUNTER 2019-05-08 06:08 | Outpatient (CLI) | payer OTHER, SELFPAY ==
[2019-05-08 11:54] LABS: Abs Immature Grans 0.01 k/cumm (0.0-0.09); Absolute Basophil Count 0.04 k/cumm (0.0-0.2); Absolute Eosinophil Count 0.01 k/cumm (0.0-0.7); Absolute Lymphocyte Count 1.38 k/cumm (1.2-3.4); Absolute Neutrophil Count 4.09 k/cumm (1.2-6.7); Basophils % 0.7; Eosinophils % 0.2; HCT 36.4 % (36.0-46.0); HGB 11.6 g/dL (12.0-15.5); Immature Grans % 0.2 %; Lymphocytes % 23.7; Mean Corp. HGB Concentration 31.9 g/dL (32.0-36.0); Mean Corpuscular Hemoglobin 27.6 pg (27.0-33.0); Mean Corpuscular Volume 86.5 fL (80-95); Mean Platelet Volume 10.5 fL (8.0-11.0); Monocytes % 5.1; Neutrophils % 70.1; Platelet Count 212 x1000/uL (130-400); RBC 4.21 m/cumm (4.00-5.20); RBC Distribution Width 17.7 % (11.7-14.6); White Blood Cell Count 5.83 k/cumm (4.4-10.8)
[2019-05-08 12:04] LABS: ALT 52 U/L (14-59); AST 42 U/L (15-37); Albumin 3.7 g/dL (3.4-5.0); Alkaline Phosphatase 81 U/L (46-116); BUN 14 mg/dL (7-18); Bilirubin, Direct 0.08 mg/dL (0.00-0.20); Bilirubin, Total 0.4 mg/dL (0.2-1.0); CREATININE 0.88 mg/dL (0.55-1.02); Calcium 8.1 mg/dL (8.5-10.1); Chloride 105 mmol/L (98-107); Glucose 134 mg/dL (74-106); Potassium 3.6 mmol/L (3.5-5.1); Sodium 141 mmol/L (136-145); Total Protein 7.2 g/dL (6.4-8.2)
== END 2019-05-08 06:28 ==
PROVIDERS: PCP Nurse Practitioner Family; Visit Provider Internal Medicine Gastroenterology
DX: K75.4 Autoimmune hepatitis (principal)
CPT/HCPCS: 36415; 80048; 80076; 85025

== ENCOUNTER 2019-05-22 00:20 | Outpatient (CLI) | payer OTHER, SELFPAY ==
[2019-05-22 07:16] LABS: Abs Immature Grans 0.01 k/cumm (0.0-0.09); Absolute Basophil Count 0.03 k/cumm (0.0-0.2); Absolute Eosinophil Count 0.06 k/cumm (0.0-0.7); Absolute Lymphocyte Count 1.85 k/cumm (1.2-3.4); Absolute Monocyte Count 0.34 k/cumm (0.11-0.7); Absolute Neutrophil Count 2.08 k/cumm (1.2-6.7); Basophils % 0.7; Eosinophils % 1.4; HCT 37.1 % (36.0-46.0); HGB 11.8 g/dL (12.0-15.5); Immature Grans % 0.2 %; Lymphocytes % 42.3; Mean Corp. HGB Concentration 31.8 g/dL (32.0-36.0); Mean Corpuscular Volume 87.9 fL (80-95); Monocytes % 7.8; Neutrophils % 47.6; Platelet Count 178 x1000/uL (130-400); RBC 4.22 m/cumm (4.00-5.20); RBC Distribution Width 17.3 % (11.7-14.6); White Blood Cell Count 4.37 k/cumm (4.4-10.8)
[2019-05-22 08:23] LABS: ALT 54 U/L (14-59); AST 45 U/L (15-37); Albumin 3.6 g/dL (3.4-5.0); Alkaline Phosphatase 65 U/L (46-116); BUN 14 mg/dL (7-18); Bilirubin, Direct 0.12 mg/dL (0.00-0.20); Bilirubin, Total 0.5 mg/dL (0.2-1.0); CREATININE 0.85 mg/dL (0.55-1.02); Calcium 8.5 mg/dL (8.5-10.1); Chloride 105 mmol/L (98-107); Glucose 96 mg/dL (74-106); Potassium 3.8 mmol/L (3.5-5.1); Sodium 142 mmol/L (136-145); Total Protein 6.8 g/dL (6.4-8.2)
== END 2019-05-22 00:40 ==
PROVIDERS: PCP Nurse Practitioner Family; Visit Provider Internal Medicine Gastroenterology
DX: K75.4 Autoimmune hepatitis (principal)
CPT/HCPCS: 36415; 80048; 80076; 85025

== ENCOUNTER 2019-06-25 09:31 | Outpatient (CLI) | payer OTHER, SELFPAY ==
[2019-06-25 16:03] LABS: ALT 47 U/L (14-59); AST 37 U/L (15-37); Albumin 3.8 g/dL (3.4-5.0); Alkaline Phosphatase 77 U/L (46-116); Bilirubin, Direct 0.08 mg/dL (0.00-0.20); Bilirubin, Total 0.3 mg/dL (0.2-1.0); Total Protein 7.1 g/dL (6.4-8.2)
== END 2019-06-25 09:51 ==
PROVIDERS: PCP Nurse Practitioner Family; Visit Provider Internal Medicine Gastroenterology
DX: K75.4 Autoimmune hepatitis (principal)
CPT/HCPCS: 36415; 80076

== ENCOUNTER 2019-07-17 03:25 | Outpatient (CLI) | payer OTHER, SELFPAY ==
[2019-07-17 09:22] LABS: Absolute Basophil Count 0.04 k/cumm (0.0-0.2); Absolute Eosinophil Count 0.01 k/cumm (0.0-0.7); Absolute Lymphocyte Count 0.79 k/cumm (1.2-3.4); Absolute Monocyte Count 0.16 k/cumm (0.11-0.7); Absolute Neutrophil Count 3.87 k/cumm (1.2-6.7); Basophils % 0.8; Eosinophils % 0.2; HCT 36.5 % (36.0-46.0); HGB 11.6 g/dL (12.0-15.5); Lymphocytes % 16.2; Mean Corp. HGB Concentration 31.8 g/dL (32.0-36.0); Mean Corpuscular Hemoglobin 27.8 pg (27.0-33.0); Mean Corpuscular Volume 87.5 fL (80-95); Mean Platelet Volume 10.2 fL (8.0-11.0); Monocytes % 3.3; Neutrophils % 79.5; Platelet Count 200 x1000/uL (130-400); RBC 4.17 m/cumm (4.00-5.20); RBC Distribution Width 16.8 % (11.7-14.6); White Blood Cell Count 4.87 k/cumm (4.4-10.8)
[2019-07-17 10:06] LABS: ALT 46 U/L (14-59); AST 42 U/L (15-37); Albumin 3.7 g/dL (3.4-5.0); Alkaline Phosphatase 61 U/L (46-116); Anion Gap 5.5 mmol/L (3-11); BUN 11 mg/dL (7-18); Bilirubin, Direct 0.11 mg/dL (0.00-0.20); Bilirubin, Total 0.4 mg/dL (0.2-1.0); CO2 30.5 mmol/L (21.0-32.0); Calcium 8.5 mg/dL (8.5-10.1); Chloride 104 mmol/L (98-107); Glucose 100 mg/dL (74-106); Potassium 4.4 mmol/L (3.5-5.1); Sodium 140 mmol/L (136-145)
== END 2019-07-17 03:45 ==
PROVIDERS: PCP Nurse Practitioner Family; Visit Provider Internal Medicine Gastroenterology
DX: K75.4 Autoimmune hepatitis (principal)
CPT/HCPCS: 80048; 80076; 85025

== ENCOUNTER 2019-08-07 03:47 | Outpatient (CLI) | payer OTHER, SELFPAY ==
[2019-08-07 12:42] LABS: ALT 66 U/L (14-59); AST 60 U/L (15-37); Albumin 4.1 g/dL (3.4-5.0); Alkaline Phosphatase 68 U/L (46-116); Bilirubin, Direct 0.07 mg/dL (0.00-0.20); Bilirubin, Total 0.4 mg/dL (0.2-1.0); Total Protein 7.7 g/dL (6.4-8.2)
== END 2019-08-07 04:07 ==
PROVIDERS: PCP Nurse Practitioner Family; Visit Provider Internal Medicine Gastroenterology
DX: K75.4 Autoimmune hepatitis (principal)
CPT/HCPCS: 36415; 80076

== ENCOUNTER 2019-09-06 02:44 | Outpatient (CLI) | payer OTHER, SELFPAY ==
[2019-09-06 08:54] LABS: Abs Immature Grans 0.01 k/cumm (0.0-0.09); Absolute Basophil Count 0.04 k/cumm (0.0-0.2); Absolute Eosinophil Count 0.03 k/cumm (0.0-0.7); Absolute Lymphocyte Count 0.95 k/cumm (1.2-3.4); Absolute Monocyte Count 0.32 k/cumm (0.11-0.7); Absolute Neutrophil Count 3.39 k/cumm (1.2-6.7); Basophils % 0.8; Eosinophils % 0.6; HCT 36.3 % (36.0-46.0); HGB 11.3 g/dL (12.0-15.5); Immature Grans % 0.2 %; Mean Corp. HGB Concentration 31.1 g/dL (32.0-36.0); Mean Corpuscular Hemoglobin 27.1 pg (27.0-33.0); Mean Corpuscular Volume 87.1 fL (80-95); Mean Platelet Volume 10.6 fL (8.0-11.0); Monocytes % 6.8; Neutrophils % 71.6; Platelet Count 218 x1000/uL (130-400); RBC 4.17 m/cumm (4.00-5.20); RBC Distribution Width 17.3 % (11.7-14.6); White Blood Cell Count 4.74 k/cumm (4.4-10.8)
[2019-09-06 09:45] LABS: ALT 35 U/L (14-59); AST 31 U/L (15-37); Albumin 3.6 g/dL (3.4-5.0); Alkaline Phosphatase 52 U/L (46-116); Anion Gap 8.1 mmol/L (3-11); BUN 13 mg/dL (7-18); Bilirubin, Direct 0.14 mg/dL (0.00-0.20); Bilirubin, Total 0.4 mg/dL (0.2-1.0); CO2 29.9 mmol/L (21.0-32.0); Calcium 8.3 mg/dL (8.5-10.1); Chloride 103 mmol/L (98-107); Glucose 93 mg/dL (74-106); Potassium 3.7 mmol/L (3.5-5.1); Sodium 141 mmol/L (136-145); Total Protein 6.8 g/dL (6.4-8.2)
== END 2019-09-06 03:04 ==
PROVIDERS: PCP Nurse Practitioner Family; Visit Provider Internal Medicine Gastroenterology
DX: K75.4 Autoimmune hepatitis (principal)
CPT/HCPCS: 36415; 80048; 80076; 85025

== ENCOUNTER 2019-10-11 01:30 | Outpatient (CLI) | payer OTHER, SELFPAY ==
[2019-10-11 10:42] LABS: ALT 29 U/L (14-59); AST 27 U/L (15-37); Albumin 3.9 g/dL (3.4-5.0); Alkaline Phosphatase 47 U/L (46-116); Bilirubin, Direct 0.08 mg/dL (0.00-0.20); Bilirubin, Total 0.4 mg/dL (0.2-1.0); Total Protein 7.2 g/dL (6.4-8.2)
== END 2019-10-11 01:50 ==
PROVIDERS: PCP Nurse Practitioner Family; Visit Provider Internal Medicine Gastroenterology
DX: K75.4 Autoimmune hepatitis (principal)
CPT/HCPCS: 36415; 80076

== ENCOUNTER 2019-11-22 03:03 | Outpatient (CLI) | payer OTHER, SELFPAY ==
[2019-11-22 09:52] LABS: ALT 27 U/L (14-59); AST 24 U/L (15-37); Albumin 3.8 g/dL (3.4-5.0); Alkaline Phosphatase 48 U/L (46-116); Bilirubin, Direct 0.07 mg/dL (0.00-0.20); Bilirubin, Total 0.3 mg/dL (0.2-1.0); Total Protein 6.9 g/dL (6.4-8.2)
== END 2019-11-22 03:23 ==
PROVIDERS: Internal Medicine Gastroenterology; PCP Nurse Practitioner Family; Visit Provider Nurse Practitioner Family
DX: K75.4 Autoimmune hepatitis (principal)
CPT/HCPCS: 36415; 80076

== ENCOUNTER 2019-12-27 03:21 | Outpatient (CLI) | payer OTHER, SELFPAY ==
[2019-12-27 09:54] LABS: ALT 24 U/L (14-59); AST 25 U/L (15-37); Albumin 3.8 g/dL (3.4-5.0); Alkaline Phosphatase 57 U/L (46-116); Bilirubin, Direct 0.08 mg/dL (0.00-0.20); Bilirubin, Total 0.4 mg/dL (0.2-1.0)
== END 2019-12-27 03:41 ==
PROVIDERS: PCP Nurse Practitioner Family; Visit Provider Internal Medicine Gastroenterology
DX: K75.4 Autoimmune hepatitis (principal)
CPT/HCPCS: 36415; 80076

== ENCOUNTER 2020-01-27 21:31 | Outpatient (REF) | payer OTHER, SELFPAY ==
[2020-01-27 19:41] LABS: Abs Immature Grans 0.01 10^3/uL (0.0-0.06); Absolute Basophil Count 0.05 10^3/uL (0.0-0.2); Absolute Eosinophil Count 0.02 10^3/uL (0.0-0.7); Absolute Lymphocyte Count 1.76 10^3/uL (1.2-3.4); Absolute Monocyte Count 0.32 10^3/uL (0.1-0.8); Absolute Neutrophil Count 3.12 10^3/uL (1.2-6.7); Basophils % 0.9; Eosinophils % 0.4; HCT 33.9 % (36.0-46.0); HGB 10.7 g/dL (11.2-15.7); Immature Grans % 0.2; Lymphocytes % 33.3; MCH 26.7 pg (27.0-33.0); MCHC 31.6 % (32.0-36.0); MCV 84.5 fL (80-95); MPV 10.9 fL (8.0-11.0); Monocytes % 6.1; Neutrophils % 59.1; Nucleated RBC 0 %; Platelet Count 220 10^3/uL (130-400); RBC 4.01 10^6/uL (3.93-5.22); RDW 17.7 % (11.7-14.6); RDW-SD 54.8 fL; WBC 5.28 10^3/uL (4.4-10.8)
[2020-01-27 20:02] LABS: ALT 27 U/L (14-59); AST 27 U/L (15-37); Albumin 3.8 g/dL (3.4-5.0); Alkaline Phosphatase 63 U/L (46-116); Anion Gap 7.2 mmol/L (3-11); BUN 14 mg/dL (7-18); Bilirubin, Total 0.2 mg/dL (0.2-1.0); CO2 27.8 mmol/L (21.0-32.0); CREATININE 0.82 mg/dL (0.55-1.02); Calcium 8.4 mg/dL (8.5-10.1); Chloride 104 mmol/L (98-107); Glucose 91 mg/dL (74-106); Potassium 3.8 mmol/L (3.5-5.1); Sodium 139 mmol/L (136-145); Total Protein 6.8 g/dL (6.4-8.2)
[2020-01-27 21:28] LABS: Bacteria Few HPF (Negative); C & S Indicated? C&S Done As Ordered; Casts Negative LPF (Negative); Crystals Negative HPF (Negative); Epithelial Cells Few HPF (Negative); Mucus Negative (Negative); WBC 0-2 HPF (0-5)
== END 2020-01-27 21:51 ==
LOC: NCHCN 21:31
PROVIDERS: PCP Nurse Practitioner Family; Visit Provider Nurse Practitioner Family
DX: R10.9 Unspecified abdominal pain (principal)
CPT/HCPCS: 80053; 87077; 81015; 85025; 87086; 87186

== ENCOUNTER 2020-01-28 05:15 | Outpatient (REF) | payer OTHER, SELFPAY ==
[2020-01-28 11:19] LABS: C Diff PCR Negative (Negative)
[2020-01-29 12:21] LABS: Campylobacter PCR Negative (Negative); Salmonella PCR Negative (Negative); Shiga Toxin PCR Negative (Negative); Shigella/Enteroinvasive Ecoli Negative (Negative)
== END 2020-01-28 05:35 ==
LOC: LBN 05:15
PROVIDERS: PCP Nurse Practitioner Family; Visit Provider Internal Medicine Gastroenterology
DX: R19.7 Diarrhea, unspecified (principal)
CPT/HCPCS: 87329; 87493; 87505; 83630

== ENCOUNTER 2020-01-28 16:20 | Outpatient (CLI) | payer OTHER, SELFPAY ==
--- NOTE | 2020-01-28 14:30 | DI.CT_ITS ---
EXAM: CT RENAL COLIC WO INDICATION: LT FLANK PAIN R10.9, R/O KIDNEY STONES. TECHNIQUE: CT examination was performed without contrast administration. FINDINGS: Images obtained through the lung bases are unremarkable. Visualized portions of the liver and splee n appear intact. Visualized portions of the pancreas are unremarkable. Gallbladder and bile ducts are CT normal. Abdominal aorta is of normal diameter. No significant abdominal wall hernia. There appears to have been prior anterior abdominal wall hernia repair. There are anastomotic suture s seen associated this stomach and the small bowel in left upper quadrant. There questionable areas of bowel wall thickening involving both small large bowel, please correlate clinically regarding hist ory bowel pathology. No significant abdominal or pelvic adenopathy. Adrenals appear normal bilaterally. The kidneys are normal in size and shape. There is no evidence of a renal mass, hydronephrosis, or n ephrolithiasis. No ureteral dilatation or calcification identified. Urinary bladder is unremarkable in appearance. IMPRESSION: Negative noncontrast abdominal and pelvic CT. No urinary tract calcification or obstruction. Incidentally noted are multiple areas of bowel wall thickening, please correlate clinically. RADIATION DOSE DELIVERED: 770.98mGy.cm DLP 770.98mGy.cm Total DLP
== END 2020-01-28 16:40 ==
PROVIDERS: PCP Nurse Practitioner Family; Visit Provider Nurse Practitioner Family
DX: R10.9 Unspecified abdominal pain (principal); R93.3 Abnormal findings on diagnostic imaging of other parts of digestive tract
CPT/HCPCS: 74176

== ENCOUNTER 2020-02-11 20:43 | Outpatient (REF) | payer OTHER, SELFPAY | END 2020-02-11 21:03 | LOC: NCHCN 20:43 | PROVIDERS: PCP Nurse Practitioner Family; Visit Provider Nurse Practitioner Family | DX: R10.32 Left lower quadrant pain (principal); R82.998 Other abnormal findings in urine | CPT/HCPCS: 87086 ==

== ENCOUNTER 2020-02-19 15:34 | Outpatient (REF) | payer OTHER, SELFPAY | END 2020-02-19 15:54 | LOC: NCHCN 15:34 | PROVIDERS: PCP Nurse Practitioner Family; Visit Provider Nurse Practitioner Family | DX: R10.9 Unspecified abdominal pain (principal) | CPT/HCPCS: 87086 ==

== ENCOUNTER → 2020-02-21 09:12 | Outpatient (REF) | payer OTHER, SELFPAY ==
[2020-02-27 10:50] LABS: Campylobacter PCR Negative (Negative); Salmonella PCR Negative (Negative); Shiga Toxin PCR Negative (Negative); Shigella/Enteroinvasive Ecoli Negative (Negative)
== END ==
LOC: NCHCN 09:12
PROVIDERS: PCP Nurse Practitioner Family; Visit Provider Nurse Practitioner Family
DX: R19.7 Diarrhea, unspecified (principal)
CPT/HCPCS: 87329; 87505; 82274; 83630; 87177; 87324

== ENCOUNTER 2020-03-31 02:29 | Outpatient (CLI) | payer OTHER, SELFPAY ==
[2020-03-31 14:10] LABS: Abs Immature Grans 0.02 10^3/uL (0.0-0.06); Absolute Basophil Count 0.05 10^3/uL (0.0-0.2); Absolute Eosinophil Count 0.02 10^3/uL (0.0-0.7); Absolute Lymphocyte Count 1.14 10^3/uL (1.2-3.4); Absolute Monocyte Count 0.31 10^3/uL (0.1-0.8); Absolute Neutrophil Count 3.61 10^3/uL (1.2-6.7); Eosinophils % 0.4; HCT 34.7 % (36.0-46.0); HGB 10.7 g/dL (11.2-15.7); Immature Grans % 0.4; Lymphocytes % 22.1; MCH 26.6 pg (27.0-33.0); MCHC 30.8 % (32.0-36.0); MCV 86.1 fL (80-95); MPV 10.4 fL (8.0-11.0); Neutrophils % 70.1; Nucleated RBC 0 %; Platelet Count 198 10^3/uL (130-400); RBC 4.03 10^6/uL (3.93-5.22); RDW 15.5 % (11.7-14.6); RDW-SD 49.1 fL; WBC 5.15 10^3/uL (4.4-10.8)
[2020-03-31 14:23] LABS: ALT 26 U/L (14-59); AST 21 U/L (15-37); Albumin 3.6 g/dL (3.4-5.0); Alkaline Phosphatase 69 U/L (46-116); Anion Gap 6.8 mmol/L (3-11); BUN 15 mg/dL (7-18); Bilirubin, Total 0.2 mg/dL (0.2-1.0); CO2 28.2 mmol/L (21.0-32.0); CREATININE 0.9 mg/dL (0.55-1.02); Calcium 8.4 mg/dL (8.5-10.1); Chloride 107 mmol/L (98-107); Glucose 86 mg/dL (74-106); Potassium 4.6 mmol/L (3.5-5.1); Sodium 142 mmol/L (136-145); Total Protein 7.1 g/dL (6.4-8.2)
[2020-03-31 14:28] LABS: Bilirubin, Direct < 0.05 mg/dL (0.00-0.20)
== END 2020-03-31 02:30 | disposition home or self-care (01) ==
PROVIDERS: PCP Nurse Practitioner Family; Visit Provider Internal Medicine Gastroenterology
DX: K75.4 Autoimmune hepatitis (principal)
CPT/HCPCS: 36415; 80048; 80076; 85025

== ENCOUNTER 2020-05-19 03:42 | Outpatient (CLI) | payer OTHER, SELFPAY ==
[2020-05-19 14:00] LABS: Abs Immature Grans 0.02 10^3/uL (0.0-0.06); Absolute Basophil Count 0.06 10^3/uL (0.0-0.2); Absolute Eosinophil Count 0.04 10^3/uL (0.0-0.7); Absolute Lymphocyte Count 1.44 10^3/uL (1.2-3.4); Absolute Monocyte Count 0.47 10^3/uL (0.1-0.8); Absolute Neutrophil Count 3.74 10^3/uL (1.2-6.7); Eosinophils % 0.7; HCT 34.5 % (36.0-46.0); HGB 10.7 g/dL (11.2-15.7); Immature Grans % 0.3; MCH 26.3 pg (27.0-33.0); MCV 84.8 fL (80-95); MPV 9.8 fL (8.0-11.0); Monocytes % 8.1; Neutrophils % 64.9; Nucleated RBC 0 %; Platelet Count 196 10^3/uL (130-400); RBC 4.07 10^6/uL (3.93-5.22); RDW 16.6 % (11.7-14.6); RDW-SD 51.8 fL; WBC 5.77 10^3/uL (4.4-10.8)
[2020-05-19 15:03] LABS: ALT 25 U/L (14-59); AST 21 U/L (15-37); Albumin 3.7 g/dL (3.4-5.0); Alkaline Phosphatase 79 U/L (46-116); Anion Gap 8.5 mmol/L (3-11); BUN 16 mg/dL (7-18); Bilirubin, Direct 0.1 mg/dL (0.0-0.2); Bilirubin, Total 0.3 mg/dL (0.2-1.0); CO2 27.5 mmol/L (21.0-32.0); CREATININE 0.8 mg/dL (0.55-1.02); Calcium 8.5 mg/dL (8.5-10.1); Chloride 104 mmol/L (98-107); Glucose 96 mg/dL (74-106); Potassium 4.3 mmol/L (3.5-5.1); Sodium 140 mmol/L (136-145); Total Protein 6.9 g/dL (6.4-8.2)
== END 2020-05-19 03:43 | disposition home or self-care (01) ==
LOC: LBO 03:42
PROVIDERS: PCP Nurse Practitioner Family; Visit Provider Internal Medicine Gastroenterology
DX: K75.4 Autoimmune hepatitis (principal)
CPT/HCPCS: 36415; 80048; 80076; 85025

== ENCOUNTER 2020-06-05 03:36 | Outpatient (CLI) | payer OTHER, SELFPAY ==
--- NOTE | 2020-06-05 08:32 | DI.RAD_ITS ---
EXAM: XR THORACIC SPINE COMPLETE CLINICAL HISTORY: PARESTHESIA OF ARMS AND HANDS,DJD UPPER T SPINE. TECHNIQUE: 2D digital imaging was performed. COMPARISON: No exams were available for comparison FINDINGS: There is normal alignment of the thoracic spine. Small endplate osteophytes are present in the mid a nd lower thoracic spine. The disc heights are well maintained. No acute fracture or subluxations in the thoracic spine. The paraspinal lines are unremarkable. The visualized lungs are clear. IMPRESSION: Mild degenerative changes in the thoracic spine. DATA REPOSITORY: RADIATION DOSE DELIVERED:
--- NOTE | 2020-06-05 08:40 | DI.RAD_ITS ---
EXAM: XR CERVICAL SP COMP W FLEX/EXT CLINICAL HISTORY: PARESTHESIA OF ARMS/HANDS,R20.2,DJD C SPINE. TECHNIQUE: 2D digital imaging was performed. COMPARISON: No exams were available for comparison FINDINGS: The odontoid is intact. The lateral masses are well aligned. There is normal alignment of the cervi reese spine. There is disc space narrowing at C4-5 through C6-C7. Endplate osteophytes are seen predo minantly at C6-C7 and C5-C6. No acute fracture or subluxation is seen. The bones are normally film examiner alized. There is [id number] neural foraminal narrowing on the right at C5-C6 and on the left a t C6-C7. The prevertebral soft tissues are unremarkable. The lung apices are unremarkable. IMPRESSION: Moderate cervical spondylosis. DATA REPOSITORY: RADIATION DOSE DELIVERED:
== END 2020-06-05 03:56 ==
PROVIDERS: PCP Nurse Practitioner Family; Visit Provider Nurse Practitioner Family
DX: R20.0 Anesthesia of skin (principal); M47.813 Spondylosis without myelopathy or radiculopathy, cervicothoracic region
CPT/HCPCS: 72052; 72072

== ENCOUNTER 2020-06-12 14:20 | Outpatient (REF) | payer OTHER, SELFPAY ==
[2020-06-12 15:11] LABS: Iron 39 ug/dL (50-170); Total Iron Binding Capacity 357 ug/dL (250-450); Transferrin Sat 11 % (15-50)
[2020-06-12 15:35] LABS: Vitamin B12 340 pg/mL (193-986)
[2020-06-15 09:46] LABS: Transferrin 279 mg/dL (201-352)
== END 2020-06-12 14:21 | disposition home or self-care (01) ==
LOC: NCHCN 14:20
PROVIDERS: PCP Nurse Practitioner Family; Visit Provider Nurse Practitioner Family
DX: D64.9 Anemia, unspecified (principal); R42 Dizziness and giddiness
CPT/HCPCS: 82607; 83540; 83550; 84466

== ENCOUNTER 2020-06-25 02:53 | Outpatient (RCR) | payer OTHER, SELFPAY ==
[2020-06-25] MEDS: Normal Saline Flush 10 ML SYR IVP (10:07)
[2020-06-25] MEDS: IRON SUCROSE COMPLEX 300 MG in Normal Saline 250 ML 176.667 MG IVPB (10:23)
== END 2020-07-20 23:59 | disposition home or self-care (01) ==
LOC: INF 02:53
PROVIDERS: PCP Nurse Practitioner Family; Visit Provider Nurse Practitioner Family
DX: D50.9 Iron deficiency anemia, unspecified (principal); Z98.84 Bariatric surgery status
CPT/HCPCS: 96365; J1756

== ENCOUNTER 2020-07-14 15:59 | Outpatient (REF) | payer OTHER, SELFPAY ==
[2020-07-14 13:53] LABS: Bilirubin Negative (Negative); Blood Trace-lysed (Negative); Clarity Clear (Clear); Glucose Negative (Negative); Ketones Negative (Negative); Leukocyte Esterase Negative (Negative); Nitrite Negative (Negative); Specific Gravity >= 1.030 (1.005-1.025); Urobilinogen 0.2 EU/dL (Up TO 0.2); pH 5.5 (5-8)
[2020-07-14 14:04] LABS: Bacteria Negative HPF (Negative); C & S Indicated? No; Casts Negative LPF (Negative); Crystals Negative HPF (Negative); Epithelial Cells Few HPF (Negative); Mucus Negative (Negative); WBC Negative HPF (0-5)
== END 2020-07-14 16:00 | disposition home or self-care (01) ==
LOC: LBN 15:59
PROVIDERS: PCP Nurse Practitioner Family; Visit Provider Nurse Practitioner Gerontology
DX: R31.21 Asymptomatic microscopic hematuria (principal)
CPT/HCPCS: 81003; 81015

== ENCOUNTER 2020-07-17 02:23 | Outpatient (CLI) | payer OTHER, SELFPAY ==
[2020-07-17 09:42] LABS: Abs Immature Grans 0.01 10^3/uL (0.0-0.06); Absolute Basophil Count 0.05 10^3/uL (0.0-0.2); Absolute Eosinophil Count 0.02 10^3/uL (0.0-0.7); Absolute Lymphocyte Count 0.72 10^3/uL (1.2-3.4); Absolute Monocyte Count 0.26 10^3/uL (0.1-0.8); Absolute Neutrophil Count 3.07 10^3/uL (1.2-6.7); Basophils % 1.2; Eosinophils % 0.5; HCT 38.4 % (36.0-46.0); HGB 11.9 g/dL (11.2-15.7); Immature Grans % 0.2; Lymphocytes % 17.4; MCH 26.8 pg (27.0-33.0); MCV 86.5 fL (80-95); MPV 10.1 fL (8.0-11.0); Monocytes % 6.3; Neutrophils % 74.4; Nucleated RBC 0 %; Platelet Count 172 10^3/uL (130-400); RBC 4.44 10^6/uL (3.93-5.22); RDW 18.8 % (11.7-14.6); RDW-SD 59.7 fL; WBC 4.13 10^3/uL (4.4-10.8)
[2020-07-17 10:52] LABS: Iron 42 ug/dL (50-170); Total Iron Binding Capacity 341 ug/dL (250-450); Transferrin Sat 12 % (15-50)
[2020-07-17 11:10] LABS: ALT 25 U/L (14-59); AST 23 U/L (15-37); Albumin 3.8 g/dL (3.4-5.0); Alkaline Phosphatase 71 U/L (46-116); Anion Gap 8.5 mmol/L (3-11); BUN 14 mg/dL (7-18); Bilirubin, Direct 0.1 mg/dL (0.0-0.2); Bilirubin, Total 0.3 mg/dL (0.2-1.0); CO2 27.5 mmol/L (21.0-32.0); CREATININE 0.8 mg/dL (0.55-1.02); Calcium 8.6 mg/dL (8.5-10.1); Chloride 108 mmol/L (98-107); Glucose 99 mg/dL (74-106); Potassium 4.6 mmol/L (3.5-5.1); Sodium 144 mmol/L (136-145); Total Protein 6.9 g/dL (6.4-8.2)
[2020-07-21 11:06] LABS: Transferrin 270 mg/dL (201-352)
== END 2020-07-17 02:24 | disposition home or self-care (01) ==
LOC: LBO 02:23
PROVIDERS: Internal Medicine Gastroenterology; PCP Nurse Practitioner Family; Visit Provider Nurse Practitioner Family
DX: K75.4 Autoimmune hepatitis (principal); R20.2 Paresthesia of skin; K74.60 Unspecified cirrhosis of liver; R10.12 Left upper quadrant pain; D64.9 Anemia, unspecified; R42 Dizziness and giddiness
CPT/HCPCS: 36415; 80048; 80076; 85027; 83540; 83550; 84466; 85025

== ENCOUNTER 2020-07-31 02:46 | Outpatient (RCR) | payer OTHER, SELFPAY ==
[2020-07-31] MEDS: IRON SUCROSE COMPLEX 300 MG in Normal Saline 250 ML 176.667 MG IVPB (12:55)
[2020-07-31] MEDS: Normal Saline Flush 10 ML SYR IVP (12:59)
== END 2020-08-19 23:59 | disposition home or self-care (01) ==
LOC: INF 02:46
PROVIDERS: PCP Nurse Practitioner Family; Visit Provider Nurse Practitioner Family
DX: D50.9 Iron deficiency anemia, unspecified (principal)
CPT/HCPCS: 96365; J1756

== ENCOUNTER 2020-08-28 05:24 | Outpatient (RCR) | payer OTHER, SELFPAY ==
[2020-08-28] MEDS: IRON SUCROSE COMPLEX 300 MG in Normal Saline 250 ML 176.667 MG IVPB (09:14)
[2020-08-28] MEDS: Normal Saline Flush 10 ML SYR IVP (09:14)
== END 2020-09-19 23:59 | disposition home or self-care (01) ==
LOC: INF 05:24
PROVIDERS: PCP Nurse Practitioner Family; Visit Provider Nurse Practitioner Family
DX: D50.9 Iron deficiency anemia, unspecified (principal)
CPT/HCPCS: 96365; 96366; J1756

== ENCOUNTER 2020-10-30 02:56 | Outpatient (CLI) | payer OTHER, SELFPAY ==
[2020-10-30 09:43] LABS: Abs Immature Grans 0.02 10^3/uL (0.0-0.06); Absolute Basophil Count 0.05 10^3/uL (0.0-0.2); Absolute Eosinophil Count 0.02 10^3/uL (0.0-0.7); Absolute Lymphocyte Count 0.76 10^3/uL (1.2-3.4); Absolute Monocyte Count 0.31 10^3/uL (0.1-0.8); Absolute Neutrophil Count 4.82 10^3/uL (1.2-6.7); Basophils % 0.8; Eosinophils % 0.3; HCT 44.4 % (36.0-46.0); HGB 14.4 g/dL (11.2-15.7); Immature Grans % 0.3; Lymphocytes % 12.7; MCHC 32.4 % (32.0-36.0); MCV 95.7 fL (80-95); MPV 10.3 fL (8.0-11.0); Monocytes % 5.2; Neutrophils % 80.7; Nucleated RBC 0 %; Platelet Count 151 10^3/uL (130-400); RBC 4.64 10^6/uL (3.93-5.22); RDW 15.4 % (11.7-14.6); RDW-SD 54.5 fL; WBC 5.98 10^3/uL (4.4-10.8)
[2020-10-30 10:43] LABS: Iron 156 ug/dL (50-170); Total Iron Binding Capacity 282 ug/dL (250-450); Transferrin Sat 55 % (15-50)
[2020-10-30 10:49] LABS: ALT 24 U/L (14-59); AST 20 U/L (15-37); Alkaline Phosphatase 74 U/L (46-116); Anion Gap 7.3 mmol/L (3-11); BUN 12 mg/dL (7-18); Bilirubin, Direct 0.1 mg/dL (0.0-0.2); Bilirubin, Total 0.3 mg/dL (0.2-1.0); CO2 29.7 mmol/L (21.0-32.0); CREATININE 0.8 mg/dL (0.55-1.02); Calcium 8.8 mg/dL (8.5-10.1); Chloride 106 mmol/L (98-107); Glucose 90 mg/dL (74-106); Potassium 4.2 mmol/L (3.5-5.1); Sodium 143 mmol/L (136-145); Total Protein 7.2 g/dL (6.4-8.2)
== END 2020-10-30 02:57 | disposition home or self-care (01) ==
LOC: LBO 02:56
PROVIDERS: PCP Nurse Practitioner Family; Visit Provider Internal Medicine Gastroenterology
DX: K75.4 Autoimmune hepatitis (principal); D64.9 Anemia, unspecified
CPT/HCPCS: 36415; 80048; 80076; 83540; 83550; 85025

== ENCOUNTER 2021-01-08 03:32 | Outpatient (CLI) | payer OTHER, SELFPAY ==
[2021-01-08 09:26] LABS: Abs Immature Grans 0.01 10^3/uL (0.0-0.06); Absolute Basophil Count 0.06 10^3/uL (0.0-0.2); Absolute Eosinophil Count 0.02 10^3/uL (0.0-0.7); Absolute Lymphocyte Count 0.76 10^3/uL (1.2-3.4); Absolute Monocyte Count 0.31 10^3/uL (0.1-0.8); Absolute Neutrophil Count 4.53 10^3/uL (1.2-6.7); Basophils % 1.1; Eosinophils % 0.4; HCT 42.3 % (36.0-46.0); HGB 13.9 g/dL (11.2-15.7); Immature Grans % 0.2; Lymphocytes % 13.4; MCH 32.2 pg (27.0-33.0); MCHC 32.9 % (32.0-36.0); MCV 97.9 fL (80-95); MPV 10.4 fL (8.0-11.0); Monocytes % 5.4; Neutrophils % 79.5; Nucleated RBC 0 %; Platelet Count 154 10^3/uL (130-400); RBC 4.32 10^6/uL (3.93-5.22); RDW 13.3 % (11.7-14.6); RDW-SD 48.6 fL; WBC 5.69 10^3/uL (4.4-10.8)
[2021-01-08 10:38] LABS: ALT 26 U/L (14-59); AST 22 U/L (15-37); Albumin 3.8 g/dL (3.4-5.0); Alkaline Phosphatase 75 U/L (46-116); Anion Gap 7.8 mmol/L (3-11); BUN 12 mg/dL (7-18); Bilirubin, Total 0.3 mg/dL (0.2-1.0); CO2 30.2 mmol/L (21.0-32.0); CREATININE 0.8 mg/dL (0.55-1.02); Calcium 8.5 mg/dL (8.5-10.1); Chloride 106 mmol/L (98-107); Glucose 94 mg/dL (74-106); Potassium 4.7 mmol/L (3.5-5.1); Sodium 144 mmol/L (136-145); Total Protein 6.7 g/dL (6.4-8.2)
== END 2021-01-08 03:33 | disposition home or self-care (01) ==
LOC: LBO 03:34
PROVIDERS: PCP Nurse Practitioner Family; Visit Provider Internal Medicine Gastroenterology
DX: K75.4 Autoimmune hepatitis (principal)
CPT/HCPCS: 36415; 80053; 85025

== ENCOUNTER 2021-02-26 00:57 | Outpatient (CLI) | payer OTHER, SELFPAY ==
--- NOTE | 2021-02-26 10:42 | DI.MAMMO_ITS ---
Exam(s) MAMMO SCREENING EXAM: MAMMO SCREENING CLINICAL HISTORY: SCREENING, PREVENTIVE [facility] C[facility],Z00.00 TECHNIQUE: Bilateral full field digital CC and MLO mammographic images were obtained with 3D tomosyn thesis and utilizing computer aided detection (CAD). COMPARISON: Available for comparison. FINDINGS: Masses/Architectural Distortion: None seen. Microcalcifications: No suspicious pleomorphic-type are seen. Skin Thickening/Nipple Retraction: None. IMPRESSION: 1. No significant interval change with no specific features of malignancy noted. 2. Unless there is more urgent need, screening mammography is recommended, as per [place] [employer] guidelines. BI-RADS Category 1 - Negative Breast Density - Category B - Scattered areas of fibroglandular density Breast density category C or D implies that the patient has dense breast tissue. Dense breast tissue is very common and is not abnormal but dense breast tissue can make it harder to find cancer on a ma mmogram. Also, dense breast tissue may increase their breast cancer risk. This information about the result of the mammogram report was provided to the patient to raise their awareness. Use this report when you speak with the patient about their risks for breast cancer, which includes their family hist ory. At that time, you may recommend for more screening tests (Ultrasound or MRI) as they might be us eful based on their risk. A negative radiographic report should not delay biopsy if a dominant or clinically suspicious mass is present. Up to ten percent of cancers are not identified on mammography. A negative report may reinforce clinical impression. Adenosis and dense breasts may obscure an underlying neoplasm. False positive reports average 6 to 10%. Patient will receive a letter notifying them of these results.
== END 2021-02-26 01:17 ==
PROVIDERS: PCP Nurse Practitioner Family; Visit Provider Nurse Practitioner Family
DX: Z12.31 Encounter for screening mammogram for malignant neoplasm of breast (principal)
CPT/HCPCS: 77063; 77067

== ENCOUNTER 2021-07-27 19:40 | Outpatient (REF) | payer OTHER, SELFPAY ==
[2021-07-27 19:25] LABS: Abs Immature Grans 0.01 10^3/uL (0.0-0.06); Absolute Basophil Count 0.05 10^3/uL (0.0-0.2); Absolute Eosinophil Count 0.03 10^3/uL (0.0-0.7); Absolute Lymphocyte Count 1.36 10^3/uL (1.2-3.4); Absolute Monocyte Count 0.33 10^3/uL (0.1-0.8); Absolute Neutrophil Count 3.49 10^3/uL (1.2-6.7); Basophils % 0.9; Eosinophils % 0.6; HCT 40.5 % (36.0-46.0); HGB 13.7 g/dL (11.2-15.7); Immature Grans % 0.2; Lymphocytes % 25.8; MCH 32.7 pg (27.0-33.0); MCHC 33.8 % (32.0-36.0); MCV 97 fL (80-95); MPV 11.3 fL (8.0-11.0); Monocytes % 6.3; Neutrophils % 66.2; Platelet Count 155 10^3/uL (130-400); RBC 4.19 10^6/uL (3.93-5.22); RDW 13.2 % (11.7-14.6); RDW-SD 46.9 fL; WBC 5.27 10^3/uL (4.4-10.8)
[2021-07-27 19:31] LABS: Iron 119 ug/dL (50-170); Total Iron Binding Capacity 279 ug/dL (250-450); Transferrin Sat 43 % (15-50)
[2021-07-27 20:16] LABS: Ferritin 37 ng/mL (8-252); Vitamin B12 312 pg/mL (193-986)
[2021-07-29 05:32] LABS: Vitamin D 25 Total 13.3 ng/mL (30-100)
[2021-07-29 08:58] LABS: Transferrin 218 mg/dL (201-352)
[2021-07-30 13:25] LABS: O-desmethyltramadol 3375 ng/mL (Cutoff:25); Tramadol 8847 ng/mL (Cutoff:25)
== END 2021-07-27 19:41 | disposition home or self-care (01) ==
LOC: NCHCN 19:40
PROVIDERS: PCP Nurse Practitioner Family; Visit Provider Nurse Practitioner Family
DX: D64.9 Anemia, unspecified (principal); M25.551 Pain in right hip; G89.29 Other chronic pain
CPT/HCPCS: 80373; 82306; 82607; 82728; 83540; 83550; 84466; 85025

== ENCOUNTER 2021-09-06 16:40 | Emergency (ER) | payer OTHER, SELFPAY ==
[2021-09-06 16:45] VITALS: BP 142/91; PULSE 96; RESP 16; TEMP 37.2; O2SAT 100
--- NOTE | 2021-09-06 17:35 | ED.GENADUL_ITS ---
Discharge Plan Disposition Patient Disposition: HOME Condition: Improving Discharge Details Clinical Impression: Abscess Primary Care Provider: Deborah Rao ED Provider: Abelardo Castillo Home Meds and New Rx's Prescriptions: New clindamycin HCl 300 mg capsule 300 mg PO QID 5 Days Qty: 20 0RF No Action gabapentin 100 mg capsule 100 mg PO TID mycophenolate mofetil [CellCept] 500 mg tablet 1,000 mg PO BID prednisone 20 mg tablet 10 mg PO DAILY Rx Instructions: 06/09 pt is presently on prednisone 5 mg per day tramadol 50 mg tablet 50 mg PO BID PRN azathioprine 50 MG tablet 50 mg PO DAILY Metamucil [facility] Fiber 660 GM powder 1 tbs PO DAILY hydroxychloroquine 200 MG tablet 200 mg PO BID Otc Lax Discharge Instructions Instructions: Abscess (ED) Additional Instructions: Please keep wound clean and dry. Please return to the emergency department if you develop worsening symptoms such as swelling redness pain pus drainage fevers or other abnormal symptoms. Medical Decision Making 56-year-old female history of hepatitis on immunosuppressive agents, presents with painful nodule to right shoulder that developed for the past 9 days, induration and fluctuance noted on examination, 2.5 cm in diameter, no systemic signs of illness such as fever or tachycardia. Patient is nontoxic. Anesthetized the area with 1% lidocaine with epinephrine, incised with 11 blade and expressed large amount of purulent material. Starting patient on clindamycin given immunocompromise state and MRSA levels in the community. Likely simple abscess must consider underlying cystic structure as nidus HPI General Date/Time Provider Initiated Documentation: 09/06/21 16:58 . HPI Narrative: 56-year-old female history of hepatitis currently on immunosuppressive therapy, presents with painful swelling to her right shoulder over the past 9 days started as a small pimple developed into a large painful nodule. Has been doing hot compresses at home without relief. Related Data Home Medications Medication Instructions Recorded Confirmed azathioprine 50 mg tablet 50 mg PO DAILY 01/14/13 09/06/21 psyllium husk (aspartame) 3.4 1 tbs PO DAILY 03/17/13 09/06/21 gram/5.8 gram oral powder (Metamucil [facility] Fiber) Otc Lax 08/19/14 07/11/19 hydroxychloroquine 200 mg tablet 200 mg PO BID 08/19/14 09/06/21 prednisone 20 mg tablet 10 mg PO DAILY 07/11/19 09/06/21 gabapentin 100 mg capsule 100 mg PO TID 07/14/20 09/06/21 mycophenolate mofetil 500 mg 1,000 mg PO BID 07/14/20 09/06/21 tablet (CellCept) tramadol 50 mg tablet 50 mg PO BID PRN 07/20/21 09/06/21 clindamycin HCl 300 mg capsule 300 mg PO QID 5 days #20 caps 09/06/21 Previous Rx's Medication Instructions Recorded clindamycin HCl 300 mg capsule 300 mg PO QID 5 days #20 caps 09/06/21 Allergies Allergy/AdvReac Type Severity Reaction Status Date / Time enoxaparin sodium Allergy Unverified 09/06/21 16:49 [From Lovenox] sumatriptan [From Imitrex] Allergy Unverified 09/06/21 16:49 sumatriptan succinate Allergy Unverified 09/06/21 16:49 [From Imitrex] acetaminophen [From Tylenol] AdvReac hx Unverified 09/06/21 16:49 hepeatits e NSAIDS (Non-Steroidal AdvReac Unverified 09/06/21 16:49 Anti-Inflamma General Stated Complaint: RashLesion MANDA: 4 Review of Systems Narrative: Review of Systems Constitutional: negative Eyes: negative ENT: negative Cardiovascular: negative Respiratory: negative Gastrointestinal: negative : negative Musculoskeletal: negative Skin: Skin nodule Neurologic: negative Psych: negative PFSH All Active Problems (Updated 09/06/21 @ 17:46 by Abelardo Castillo MD) Abscess (Acute) Asymptomatic microscopic hematuria (Acute) Osteoarthritis of right hip (Acute) Medical History (Updated 09/06/21 @ 17:46 by Abelardo Castillo MD) ARTHRITIS NOS AUTOIMMUNE HEPATIT GASTRIC BYPASS H/O ANXIETY/DEPRESSION H/O CERVICAL CA H/O HTN Hyperlipidemia Intertrigo Obesity SURGICALLY INDUCED MENOPAUSE TOBACCO USE DISORD Surgical History Abdominal hysterectomy Appendectomy Cholecystectomy Gastric Bypass BY KYLE REGAN MD IN 2004 Oophrectomy, Left Oophrectomy, Right Tonsillectomy and adenoidectomy Social History Smoking/Tobacco Use Status: Current-Occasional Tobacco Type: cigarettes Smoking risk assessment performed?: Yes Alcohol Intake: never Drug use: Never Substance use type: does not use Do you feel safe at home: Yes Do you feel safe in your relationship?: Yes Exam Narrative Exam Narrative: Physical Examination General: alert, awake, cooperative, resting comfortably, no acute distress HEENT: normocephalic, atraumatic; PERRL, EOM intact, conjunctiva normal; no nasal discharge; moist mucous membranes, oral and pharyngeal mucosa normal, tolerating secretions Neck: supple, trachea midline; full ROM Chest: normal to inspection Respiratory: normal respiratory effort, speaking in full sentences, clear to auscultation, no wheezing, rales or rhonchi Cardiac: regular rate, regular rhythm, S1S2 intact, no murmurs rubs or gallops GI: abdomen soft, non-tender, non-distended; no palpable mass or hepatosplenomegaly Skin: 2.5 cm diameter raised skin nodule fluctuant with induration and mild erythema superior aspect of deltoid/trapezius region right shoulder Neuro: AAOx3, normal speech, moving all extremities Psych: Appropriate mood and affect Course Vital Signs Vital signs: Vital Signs Temperature 37.2 C 09/06/21 16:45 Pulse 96 H 09/06/21 16:45 Respiratory Rate 16 09/06/21 16:45 Blood Pressure 142/91 H 09/06/21 16:45 Pulse Oximetry 100 09/06/21 16:45 Temperature 37.2 C 09/06/21 16:45 Temperature Source Temporal Artery Scan 09/06/21 16:45 Pulse 96 H 09/06/21 16:45 Respiratory Rate 16 09/06/21 16:45 Respiratory Effort 09/06/21 16:48 Blood Pressure 142/91 H 09/06/21 16:45 Blood Pressure Position Sitting 09/06/21 16:45 Pulse Oximetry 100 09/06/21 16:45 Oxygen Delivery Method Room Air 09/06/21 16:45 Oxygen Flow Rate 0 09/06/21 16:45 Pain Level 4 09/06/21 16:45 Procedures Abscess I/D Site: Upper Extremity (Right shoulder) Side (if applicable): Right Local Anesthetic: Lidocaine 1% and With Epi Amount of anesthesia used (mL): 2 Technique: Incised with #11 Blade Amount of fluid expressed (mL): 5 Irrigation: No Packing used?: None
[2021-09-06] MEDS: Clindamycin 300 MG CAP PO (17:41)
== END 2021-09-06 17:55 | disposition home or self-care (01) ==
PROVIDERS: Emergency Provider Emergency Medicine; PCP Nurse Practitioner Family
DX: L02.413 Cutaneous abscess of right upper limb (principal)
CPT/HCPCS: 10060

== ENCOUNTER 2021-09-10 01:34 | Outpatient (CLI) | payer OTHER, SELFPAY ==
--- NOTE | 2021-09-10 09:40 | DI.CTLCSR_ITS ---
Exam(s) CT CHEST LUNG CANCER SCREEN EXAM: CT CHEST LUNG CANCER SCREEN CLINICAL HISTORY: SCREENING FOR LUNG CA, TOBACCO USE DISORDER, F17.209 TECHNIQUE: Imaging Protocol: Axial computed tomography images with coronal and sagittal reformatted images were created and reviewed. Low dose screening protocol. COMPARISON: CT CT CHEST WO from 12/08/2017 FINDINGS: Tracheobronchial tree: No bronchiectasis or mucus plugging.. Mediastinum and Luly: No dominant adenopathy or fluid collection. Pulmonary parenchyma: No consolidation or dominant measurable mass. No visible emphysematous changes. Lung Nodules: No suspicious pulmonary nodules. Pleura: No effusion. No pneumothorax. Heart: The heart is not dilated. [id number] coronary artery calcifications are seen. Aorta: Thoracic aorta non-dilated. Upper abdomen: Suture material at fundus of stomach. Mesh anterior abdominal wall. Bones: Unremarkable for age. Soft Tissues: Unremarkable. IMPRESSION: No suspicious pulmonary nodules. Lung RADS Cat 1 - Negative: No nodules and definitely benign nodules Lung-RADS 1.0 CATEGORIES: Category 0 - Prior chest CT exam(s) being located for comparison. Category 1 - Annual screening in 12 months. No nodules or definitely benign nodules. Category 2 - Annual screening in 12 months. Benign appearance. Nodules with low likelihood of becomin g active cancer. Category 3 - 6-month follow-up. Probably benign. Short-term follow-up suggested. Nodules with low lik elihood of becoming active cancer. Category 4A - 3-month follow-up and CT/PET if >8 mm in size. Suspicious finding. Findings which requi re additional testing. Category 4B - Findings which require additional testing and tissue sampling. Category 4X - Category 3 or 4 nodules with additional features or imaging findings that increases the suspicion of malignancy. Modifier S- Potentially clinically significant findings (non lung cancer) RADIATION DOSE DELIVERED: 70.62mGy.cm Total DLP 1.84mGy CTDIvol DATA REPOSITORY: All CT scans at this facility are submitted to the National Radiology Data Registry (NRDR) Dose Index Registry (DIR) with the [employer] ([employer]). RADIATION OPTIMIZATION: All CT scans at this facility use at least one of these dose optimization te chniques: automated exposure control; mA and/or kV adjustment per patient size (includes targeted exa ms where dose is matched to clinical indication); or iterative reconstruction.
--- NOTE | 2021-09-10 10:00 | DI.DEXA_ITS ---
Exam(s) XR DEXA BONE DENSITY W/WO TOMMIE EXAM: XR DEXA BONE DENSITY W/WO TOMMIE CLINICAL HISTORY: OSTEOPENIA, M85.80, DIRECTOR OF QUALITY CONTROL PREDNISONE USE TECHNIQUE: [email or web address] C densitometer analysis of left hip, lumbar spine and left forearm. COMPARISON: 2005 and 2018 FINDINGS: Lateral view of the thoracic and lumbar spine shows no evidence of compression fractures. Bone mineral density measurements of the lumbar spine correspond to a total T-score of -2.7, in the osteoporotic range. This represents a 5 percent decrease compared with 2018 and 21.3 percent decreas e when compared with 2005. Bone mineral density measurements of the left hip correspond to a total T-score of -1.9. The femora l neck T-score is -1.9, in the osteopenic range. This represents a 3.2 percent decrease from 2018 an d 24.9 percent decrease when compared with 2005. . The left forearm bone mineral density measurements correspond to a T-score of the distal 3rd of -2.1 , in the osteopenic range. This is not significantly changed from 2018. Forearm was not analyzed in 2006.. IMPRESSION: Osteoporosis of the lumbar spine. Osteopenia the left hip and left forearm. Decreased bone mineral density when compared with prior exams.
== END 2021-09-10 01:54 ==
LOC: DI 01:34
PROVIDERS: PCP Nurse Practitioner Family; Visit Provider Nurse Practitioner Family
DX: M85.89 Other specified disorders of bone density and structure, multiple sites (principal); M81.0 Age-related osteoporosis without current pathological fracture; Z12.2 Encounter for screening for malignant neoplasm of respiratory organs; Z72.0 Tobacco use; Z79.52 Long term (current) use of systemic steroids
CPT/HCPCS: 71271; 77080

== ENCOUNTER 2021-10-18 14:53 | Outpatient (CLI) | payer OTHER, SELFPAY ==
--- NOTE | 2021-10-18 14:45 | DI.RAD_ITS ---
Exam(s) XR HIP RT COMPLETE AP PELVIS EXAM: XR HIP RT COMPLETE AP PELVIS CLINICAL HISTORY: ROBLES planning. TECHNIQUE: 2D digital imaging was performed of the right hip. Two images were obtained. AP pelvis a nd lateral right hip views were obtained. COMPARISON: CR Hip R Complete from 11/13/2017 FINDINGS: BONES: No acute fracture is present. No bony destructive lesion is seen. JOINTS: No dislocation present. Moderate degenerative changes are seen in the right hip. There is presley int space narrowing and subchondral sclerosis. Bony hypertrophic changes are seen in the femoral hea d. SOFT TISSUE: Normal. IMPRESSION: Moderate degenerative changes of the right hip. DATA REPOSITORY: RADIATION DOSE DELIVERED:
== END 2021-10-18 14:54 | disposition home or self-care (01) ==
LOC: DIORS 14:53
PROVIDERS: PCP Nurse Practitioner Family; Referring Provider Nurse Practitioner Family; Visit Provider Physician Assistant
DX: M16.11 Unilateral primary osteoarthritis, right hip (principal)
CPT/HCPCS: 73502

== ENCOUNTER 2021-11-29 02:58 | Outpatient (CLI) | payer OTHER, SELFPAY ==
[2021-11-29 08:59] LABS: HCT 40.9 % (36.0-46.0); HGB 13.5 g/dL (11.2-15.7); MCH 31.7 pg (27.0-33.0); MCV 96 fL (80-95); MPV 10.2 fL (8.0-11.0); Platelet Count 164 10^3/uL (130-400); RBC 4.26 10^6/uL (3.93-5.22); RDW-SD 45.9 fL; WBC 5.01 10^3/uL (4.4-10.8)
[2021-11-29 09:08] LABS: INR 1.1 (0.9-1.1); Prothrombin Time 10.6 sec (9.3-11.0)
[2021-11-29 09:15] LABS: ALT 22 U/L (14-59); AST 20 U/L (15-37); Albumin 3.8 g/dL (3.4-5.0); Alkaline Phosphatase 72 U/L (46-116); Anion Gap 8.5 mmol/L (3-11); BUN 12 mg/dL (7-18); Bilirubin, Total 0.5 mg/dL (0.2-1.0); CO2 29.5 mmol/L (21.0-32.0); CREATININE 0.9 mg/dL (0.55-1.02); Calcium 8.3 mg/dL (8.5-10.1); Chloride 106 mmol/L (98-107); Estimated GFR 74.57 (mL/min/1.73m2); Glucose 85 mg/dL (74-106); Potassium 4.1 mmol/L (3.5-5.1); Sodium 144 mmol/L (136-145)
[2021-11-29 13:49] LABS: Abs Immature Grans 0.02 10^3/uL (0.0-0.06); Absolute Basophil Count 0.05 10^3/uL (0.0-0.2); Absolute Eosinophil Count 0.03 10^3/uL (0.0-0.7); Absolute Lymphocyte Count 0.68 10^3/uL (1.2-3.4); Absolute Monocyte Count 0.29 10^3/uL (0.1-0.8); Eosinophils % 0.6; Immature Grans % 0.4; Lymphocytes % 13.4; Monocytes % 5.7; Neutrophils % 78.9
== END 2021-11-29 02:59 | disposition home or self-care (01) ==
LOC: LBO 02:58
PROVIDERS: PCP Nurse Practitioner Family; Visit Provider Student in an Organized Health Care Education/Training Program
DX: M25.551 Pain in right hip (principal); M16.11 Unilateral primary osteoarthritis, right hip; M06.8A Other specified rheumatoid arthritis, other specified site; Z86.711 Personal history of pulmonary embolism; Z01.818 Encounter for other preprocedural examination; Z01.812 Encounter for preprocedural laboratory examination
CPT/HCPCS: 36415; 80048; 80053; 85027; 85007; 85610

== ENCOUNTER 2021-11-30 06:57 | Day surgery (SDC) | payer OTHER, SELFPAY ==
[2021-11-30] VITALS (10 sets, daily range): BP systolic 97–125; BP diastolic 43–67; PULSE 54–75; RESP 14–20; TEMP 36–36.8; O2SAT 98–100; BMI 27.4
--- NOTE | 2021-11-30 07:15 | DI.RAD_ITS ---
Exam(s) XR HIP RT IN OR EXAM: XR HIP RT IN OR CLINICAL HISTORY: OSTEOARTHRITIS RIGHT HIP TECHNIQUE: 2D and realtime digital imaging was performed. CONTRAST MATERIAL: Refer to procedure report. COMPARISON: No exams were available for comparison FINDINGS: Fluoroscopy was provided for Dr. Kimbrough during the performance of a right total hip arthroplasty p lacement. Please refer to the procedure report for complete details. Ka,r=2.43 mGy IMPRESSION: RADIATION DOSE DELIVERED:
--- NOTE | 2021-11-30 07:18 | PDOC.DSDIS_ITS ---
Discharge Plan Disposition Patient Disposition: HOME Condition: Good Discharge Details Reason For Visit: Right ROBLES Attending Provider: Adama Kimbrough Primary Care Provider: Deborah Rao Home Meds and New Rx's Prescriptions: New aspirin 81 mg tablet,delayed release (DR/EC) 81 mg PO BID Qty: 60 0RF celecoxib [Celebrex] 200 mg capsule 200 mg PO BID Qty: 60 0RF pantoprazole [Protonix] 40 mg tablet,delayed release (DR/EC) 40 mg PO DAILY Qty: 30 0RF oxycodone 5 mg tablet 5 mg PO Q4H PRNQty: 18 0RF Continued gabapentin 100 mg capsule 100 mg PO TID mycophenolate mofetil [CellCept] 500 mg tablet 1,000 mg PO BID prednisone 20 mg tablet 5 mg PO DAILY Rx Instructions: 06/09 pt is presently on prednisone 5 mg per day azathioprine 50 MG tablet 50 mg PO DAILY Metamucil [facility] Fiber 660 GM powder 1 tbs PO DAILY hydroxychloroquine 200 MG tablet 200 mg PO BID Otc Lax bupropion HCl [Wellbutrin SR] 150 mg Tablet Sustained-Release 12 Hr 150 mg PO BID Discharge Instructions Additional Instructions: Total Hip Discharge Instructions Activity: The most important activity is to walk. You should try to take short walks a few times a day. You have no restrictions on movement or positioning, but do not try to force what you do. You will find some stiffness and weakness with hip flexion (lifting your knee). Do not try to strengthen this too early, continue to practice walking and stairs and this will come. - Outpatient physical therapy can be helpful to help return you to a normal gait and improve your flexibility and strength. This can start around 2 weeks. For some patients, it?s not necessary. Usually this is determined at the time of discharge or at the first post-operative visit. - You should wear the LELAND hose on both legs for 2 weeks. Dressing: Keep the surgical dressing in place for at least one week. After the first week you may remove the first layer of dressing (although it can stay until your first post-op). There will be steri-strips underneath over the surgical incision. You may replace the first layer with light gauze and tape or nothing. Leave the steri-strips in place. It may get wet after 3 days but avoid soaking the dressing. If it gets wet, just lightly pat dry. It is important to always keep some gauze between skin folds, especially when you are sitting. Spend some time with the wound exposed when you are lying flat as the incision does wrinkle onto itself. Medications: - You should take an anti-inflammatory Celebrex as your primary pain control medications. If the Celebrex is too expensive or not covered, please call the office for another alternative (Advil/Ibuprofen or Naproxen/Aleve). - You have been prescribed a stronger pain medication Oxycodone for breakthrough pain, take as needed as prescribed. - You have also been prescribed a stomach acid reduction agent Pantoprozole to help reduce stomach acid and reflux. - You will continue your usual Prednisone - You will be taking Aspirin 81mg twice a day for DVT prevention unless instructed otherwise. - If you have constipation you should take Colace or Miralax (both [id number]). It takes most people 3-4 days to have a bowel movement. Follow-up: 2 weeks If you have any acute concerns or questions, please do not hesitate to contact the office at [phone]. You may contact Dr. Kimbrough with any questions after hours through the hospital at [phone] or on his cell phone at [phone]. Referrals: Adama Kimbrough MD [ [facility] STAFF PHYSICIAN] - Equipment/Supplies: Walker Activity:: Activity as Tolerated Remove Dressings/Wound Care:: Do Not Remove Shower/Bathe:: 72 hours Diet:: As Tolerated Discharge Orders Discharge Orders: Discharge Order (Routine); Ordered 11/30/21 Ordered By: Flores Domingo DS: Diagnosis Discharge Diagnosis (1) Osteoarthritis of right hip: Status: Acute
[2021-11-30] MEDS: Celecoxib 200 MG CAP 400 MG PO (07:50)
[2021-11-30] MEDS: Lactated Ringers 1,000 ML 80 ML IV (08:00)
--- NOTE | 2021-11-30 08:07 | ANES.PREOP_ITS ---
General Info Date of Service Date Performed: 11/30/21 Height: 5 ft Weight: 63.7 kg Body Mass Index (BMI): 27.4 Surgical Procedure: Operation Date: 11/30/21 09:50 Proposed Procedure Side Surgeon p Hip Total Hip Anterior Right Adama Kimbrough MD Actual Procedure Side Surgeon p Hip Total Hip Anterior Right Adama Kimbrough MD Pre-Op Diagnosis Post-Op Diagnosis OSTEOARTHRITIS RIGHT HIP Meds Allergies and Home Medications Allergies Allergy/AdvReac Type Severity Reaction Status Date / Time enoxaparin sodium Allergy Verified 11/30/21 07:41 [From Lovenox] sumatriptan [From Imitrex] Allergy Verified 11/30/21 07:41 sumatriptan succinate Allergy Verified 11/30/21 07:41 [From Imitrex] acetaminophen [From Tylenol] AdvReac hx Verified 11/30/21 07:41 hepeatits e NSAIDS (Non-Steroidal AdvReac Verified 11/30/21 07:41 Anti-Inflamma Home Medication Medication Instructions Recorded azathioprine 50 mg tablet 50 mg PO DAILY 01/14/13 psyllium husk (aspartame) 3.4 1 tbs PO DAILY 03/17/13 gram/5.8 gram oral powder (Metamucil [facility] Fiber) Otc Lax 08/19/14 hydroxychloroquine 200 mg tablet 200 mg PO BID 08/19/14 gabapentin 100 mg capsule 100 mg PO TID 07/14/20 mycophenolate mofetil 500 mg 1,000 mg PO BID 07/14/20 tablet (CellCept) prednisone 20 mg tablet 5 mg PO DAILY 11/25/21 bupropion HCl 150 mg tablet,12 hr 150 mg PO BID 11/29/21 sustained-release (Wellbutrin SR) aspirin 81 mg tablet,delayed 81 mg PO BID #60 tabs 11/30/21 release celecoxib 200 mg capsule (Celebrex) 200 mg PO BID #60 caps 11/30/21 oxycodone 5 mg tablet 5 mg PO Q4H PRN #18 tabs 11/30/21 pantoprazole 40 mg tablet,delayed 40 mg PO DAILY #30 tabs 11/30/21 release (Protonix) Current Visit Medications: Current Medications Generic Name Dose Route Start Last Admin Trade Name Freq PRN Reason Stop Dose Admin Acetaminophen 1,000 mg 11/30/21 14:00 Acetaminophen 500 Mg Tab PO TID SHRADDHA Celecoxib 400 mg 11/30/21 06:00 11/30/21 07:50 Celecoxib 200 Mg Cap PO 11/30/21 16:00 400 mg PREOP SHRADDHA Administration Celecoxib 200 mg 11/30/21 20:00 Celecoxib 200 Mg Cap PO BID SHRADDHA Hydromorphone HCl 0.5 mg 11/30/21 07:17 Hydromorphone 2 Mg/Ml Syr IVP Q2H PRN PRN Tranexamic Acid 1,000 mg/ 60 mls @ 360 mls/hr 11/30/21 06:00 Sodium Chloride IV 11/30/21 16:00 PREOP SHRADDHA Ringer's Solution 1,000 mls @ 80 mls/hr 11/30/21 06:00 11/30/21 08:00 IV 12/29/21 23:59 80 mls/hr INFUSION SHRADDHA Administration Cefazolin Sodium/Dextrose 2 gm in 50 mls @ 100 mls/hr 11/30/21 06:00 Ancef Duplex IVPB 12/29/21 23:59 PREOP SHRADDHA Cefazolin Sodium/Dextrose 1 gm in 50 mls @ 100 mls/hr 11/30/21 16:00 Ancef Duplex IVPB 12/01/21 08:29 Q8H SHRADDHA IV Miscellaneous Supplies 1 each 11/30/21 06:00 Iv Access IV 12/29/21 23:59 DIRECTED SHRADDHA Ondansetron HCl 4 mg 11/30/21 07:17 Ondansetron 4 Mg/2 Ml Vial IVP Q6H PRN PRN Nausea Oxycodone HCl 0 mg 11/30/21 07:17 Oxycodone 5 Mg Tab PO Q3H PRN PRN Pain Pantoprazole Sodium 40 mg 12/01/21 07:30 Pantoprazole 40 Mg Tabcr PO DAILY@0730 SHRADDHA Sodium Chloride 0 ml 11/30/21 06:00 Normal Saline Flush 10 Ml Syr IV 12/29/21 23:59 PRN PRN Sodium Chloride 0 ml 11/30/21 06:00 Normal Saline 10 Ml Vial IJ 12/29/21 23:59 DIRECTED PRN Sterile Water 0 ml 11/30/21 06:00 Water,Injection,Sterile 10 Ml Vial IJ 12/29/21 23:59 DIRECTED PRN PFSH Active Problems Active Problems: Problem Status Onset Code Asymptomatic microscopic hematuria R31.21 Osteoarthritis of right hip M16.11 Medical History Medical History ARTHRITIS NOS AUTOIMMUNE HEPATIT GASTRIC BYPASS H/O ANXIETY/DEPRESSION H/O CERVICAL CA H/O HTN Hyperlipidemia Intertrigo Obesity SURGICALLY INDUCED MENOPAUSE TOBACCO USE DISORD Surgical History Surgical History Abdominal hysterectomy Appendectomy Cholecystectomy Gastric Bypass BY KYLE REGAN MD IN 2004 Oophrectomy, Left Oophrectomy, Right Tonsillectomy and adenoidectomy Tobacco Smoking/Tobacco Use Status: Former Tobacco Use Alcohol Alcohol Intake: never Substance Use Substance use: Never Substance use type: does not use Vital Signs and Lab Results Vital Signs Most Recent Vital Signs in EMR: Most Recent Vital Signs Temp Pulse Resp BP Pulse Ox 36.8 C 68 16 103/67 100 11/30/21 07:28 11/30/21 07:28 11/30/21 07:28 11/30/21 07:28 11/30/21 07:28 Lab Results Blood Type / Crossmatch: No Data to Display Complete Blood Count: White Blood Count 5.01 10^3/uL (4.4-10.8) 11/29/21 08:46 Red Blood Count 4.26 10^6/uL (3.93-5.22) 11/29/21 08:46 Hemoglobin 13.5 g/dL (11.2-15.7) 11/29/21 08:46 Hematocrit 40.9 % (36.0-46.0) 11/29/21 08:46 Platelet Count 164 10^3/uL (130-400) 11/29/21 08:46 Complete Metabolic Panel: Sodium 144 mmol/L (136-145) 11/29/21 08:46 Potassium 4.1 mmol/L (3.5-5.1) 11/29/21 08:46 Chloride 106 mmol/L (98-107) 11/29/21 08:46 Carbon Dioxide 29.5 mmol/L (21.0-32.0) 11/29/21 08:46 BUN 12 mg/dL (7-18) 11/29/21 08:46 Creatinine 0.9 mg/dL (0.55-1.02) 11/29/21 08:46 Est GFR (CKD-EPI 2020) 74.57 (mL/min/1.73m2) 11/29/21 08:46 Calcium 8.3 mg/dL (8.5-10.1) L 11/29/21 08:46 Albumin 3.8 g/dL (3.4-5.0) 11/29/21 08:46 Glucose 85 mg/dL (74-106) 11/29/21 08:46 Liver Function Panel: Alanine Aminotransferase (ALT/SGPT) 22 U/L (14-59) 11/29/21 08: 46 Aspartate Amino Transf (AST/SGOT) 20 U/L (15-37) 11/29/21 08:46 Coagulation Panel: INR International Normalized Ratio 1.1 (0.9-1.1) 11/29/21 08:4 6 Prothrombin Time 10.6 sec (9.3-11.0) 11/29/21 08:46 Cardiac Panel: No Data to Display Arterial Blood Gas: No Data to Display Venous Blood Gas: No Data to Display Pancreas Panel: No Data to Display Thyroid Panel: No Data to Display Infectious Disease: No Data to Display Blood Cultures: No Data to Display Toxicology Panel: No Data to Display Anesthesia Assessment and Plan Anesthesia History Personal History: No History of Anesthesia Complications Family History: No Family History of Anesthesia Complications Exercise Tolerance Exercise Tolerance: Metabolic Equivalents>4 Pertinent Negatives Pertinent Negatives: No Symptoms of GERD, No Major Cardiovascular Symptoms or Complaints, No Major Pulmonary Symptoms or Complaints and No History of CVA/TIA Cardiac & Pulmonary Exam Cardiac Exam: Normal S1/S2 Heart Sounds Pulmonary Exam: Clear Bilateral Breath Sounds Implantable Cardiac Device Does patient have a Pacemaker or an ICD?: No Airway Exam Known Difficult Airway: No Mallampati Class: 2 Mouth Opening: Normal (> 3cm) Thyromental Distance: Greater than 3 cm Neck Range of Motion: Full ROM Neck Circumference: Normal Teeth Condition: Normal Dentition ASA Classification ASA Score: ASA 3 Emergency Case?: No NPO Status NPO Status: NPO Clears >2 hours, Solids >8 hours Anesthesia Plan Resuscitation Status: Full Code Anesthesia Technique: Spinal Anesthesia Airway Planned: Natural Airway Monitors Used: Standard Monitors
[2021-11-30] MEDS: ceFAZolin 2 GM/50 ML BAG IVPB (09:27)
[2021-11-30] MEDS: oxyCODONE 5 MG TAB PO (12:33)
--- NOTE | 2021-11-30 13:48 | W.ANESPOSTOP ---
Postoperative Evaluation Date, Time and Location Date Performed: 11/30/21 Time Performed: 13:49 Patient Location: Day Surgery Unit Vital Signs Most Recent Imported Vital Signs: Most Recent Vital Signs Temp Pulse Resp BP Pulse Ox 36 C L 71 16 125/65 98 11/30/21 12:31 11/30/21 12:31 11/30/21 12:31 11/30/21 12:31 11/30/21 12:31 Pain Score Most Recent Pain Score: Most Recent Pain Score Pain Level 7 11/30/21 12:31 Assessment Mental Status: Awake (Alert & Oriented to Patient Baseline) Airway and Respiratory Function: Patent airway with normal (patient baseline) respiratory exam Cardiovascular Function: Hemodynamically Stable Hydration Status: Adequately Hydrated Nausea & Vomiting: No Nausea or Vomiting Pain: Pain is Moderate or Severe Postoperative Pain Management: Pain being addressed with medication Peripheral Nerve Block: Patient did not receive a nerve block (Spinal is resolving appropriately)
--- NOTE | 2021-11-30 14:48 | PT.INIE ---
PT Notes Visit Reasons: Right ROBLES Inpatient Physical Therapy Evaluation Date: 11/30/21 Referring Doctor: Dr. Kimbrough PT Orders: PT CONSULT: right hip OA, s/p ROBLES post op day 0 Precautions: standard Patient Profile/Admitting Diagnosis: PT orders received in day surgery for evaluation of right hip OA, s/p ROBLES post op day 0. PMHX: Medical History?(Updated 10/07/21 @ 00:09 by ERMA LAWTON) ARTHRITIS NOS AUTOIMMUNE HEPATIT GASTRIC BYPASS H/O ANXIETY/DEPRESSION H/O CERVICAL CA H/O HTN Hyperlipidemia Intertrigo Obesity SURGICALLY INDUCED MENOPAUSE TOBACCO USE DISORD Surgical History? Abdominal hysterectomy Appendectomy Cholecystectomy Gastric Bypass BY KYLE REGAN MD IN 2004Oophrectomy, Left Oophrectomy, Right Tonsillectomy and adenoidectomy Social History/Home Situation: Lives with in multi-level home. Three individual steps to enter, then plans to stay on first floor. Equipment Owned/DME: FWW Subjective: Fatoumata states that she is very uncomfortable in bed. She is anxious to get up and walking. Objective: General Observation: Resting in bed, ice to right hip. Mental Status: A&Ox3. Pain: 7/10 ROM: Right Upper Extremity: WFL Left Upper Extremity: WFL Right Lower Extremity: Actively demonstrates up to 90 degrees of hip flexion. Left Lower Extremity: WFL Strength: Right Upper Extremity: WFL Left Upper Extremity: WFL Right Lower Extremity: Able to demonstrate good quad activation with quad sets. Able to pump ankles and wiggle toes. Left Lower Extremity: WFL Sensation: intact distally Bed Mobility/Transfers: supine-sit: independent sit-stand: independent stand-sit: independent Gait: Ambulates 30'x2, FWW, CGA to supervision Stairs: manages therapeutic stairs x 2, bilat rails, CGA and cues for technique Balance: Static Sitting: normal Dynamic Sitting: normal Static Standing: good Dynamic Standing: fair Informed Consent/Education: Patient instructed in purpose of PT consult and plan of care. Treatment: Initial Evaluation: 52110 Gait Training Therapeutic Exercises: Instructed in the following: Ankle Pumps 10x Quad sets 10x Glute Sets 10x heel slides 10x Assessment: Patient is a 56 year old female referred to physical therapy services with the diagnosis of right hip OA, s/p ROBLES post op day 0. . Patient presents with clinical signs and symptoms consistent with post-op status. She demonstrates safety and mobility sufficient to allow for safe transition home with use of FWW. She currently demonstrates the following impairment level findings: 1. decreased RLE strength 2. gait impairments 3. decreased dynamic balance Impairments are contributing to the following functional limitations: 1. decreased tolerance to household distance ambulation 2. decreased independence with stair management Patient is assessed as Low 21176 complexity based on the following: History: 56 year old female with right hip OA, s/p ROBLES post op day 0. No complicating factors. Examination: functional limitations as above Presentation: stable Decision Making: low complexity Plan of Care/Treatment Plan: D/C home with family support. Requires FWW for management of household distance ambulation. DISCHARGE RECOMMENDATIONS: Home with no services TREATMENT CODE/TIME: 2:00-2:20 (39919) Bettina Mendez, PT, DPT [facility]
--- NOTE | 2021-11-30 21:28 | W.PM.OP ---
Date of service: 11/30/21 Time of Service: 10:30 Operative Note Operative Note DATE OF PROCEDURE: 11/30/21 PRE-OP DIAGNOSIS: Right Hip Osteoarthritis POST-OP DIAGNOSIS: same PROCEDURE: Right Anterior Total Hip Arthroplasty with Intraoperative Navigation SURGEON: Adama Kimbrough MONITORING ENGINEER: Flores Domingo ANESTHESIA TYPE: Spinal Refer to Anesthesia Record ESTIMATED BLOOD LOSS: 100 PATHOLOGY: none sent TOURNIQUET TIME: 0 COMPLICATIONS: None Patient was transported to: PACU Patient's condition: stable Implants: 1. Depuy Goff Acetabular Component, 48mm 2. Depuy Acetabular Liner, [id number] 3. Depuy Corail Standard 125 degree Collared Femoral Stem, Size 13 4. Depuy Altrx Ceramic Femoral Head, Size 32+5mm Indications: I have seen [NAME] in clinic for symptoms of hip arthritis, confirmed with radiographic findings. [NAME] has exhausted nonoperative methods and was having significant limitations in daily function and desired better function and less pain. I discussed the technical details of a hip replacement. I explained the risks of the procedure to include, but not limited to, bleeding, infection, pain, stiffness, fracture, damage to nerves and vessels, damage to muscles and tendons, loosening, instability, leg length inequality, need for repeat procedure, blood clot and cardiopulmonary demise. Despite these risks, [NAME] elected to proceed. Findings: There was significant signs of arthritis throughout the hip, mostly noted over the femoral head with large osteophytes around the neck. Procedure Description: Fatoumata was greeted in the preoperative holding area where the correct side was identified and marked. The consent was reviewed with the patient and signed. The history and physical was updated. All questions were answered. She was taken back to the operating room. A spinal anesthestic was then administered. The feet were wrapped with cast padding and Coban and then placed into the boot liners and then into the boots. Care was taken to protect the skin and make sure the heels were fully down and the boots were stable. The patient was then positioned onto the HANA table. Both legs were held in a neutral position. SCDs were applied. The patient was then slid down onto a peroneal post. Prophylactic antibiotics in the form of Cefazolin were administered. 1g of Tranxemic Acid was given intravenously within 30 minutes of incision. The right leg was then prepped with Chloraprep and draped in a standard fashion. A second prep with Chloraprep was performed prior to placement of a shower-curtain type drape with Iodine impregnated skin protection. A timeout to confirm correct identity, side and site, procedure, allergies, anesthesia, and medical concerns was performed. An obliquely oriented incision was made starting lateral to the ASIS and running distal over the Tensor Fascia Lucía (TFL) muscle belly toward the fibular head, approximately 10cm. The skin and soft tissue was dissected sharply, through Stephanie?s fascia, and to the fascia of the TFL. With the fascia and superior border of the IT band identified, the fascia was incised with a new knife just above any perforators from the IT band. The TFL muscle belly was bluntly dissected away from the fascia and moved laterally. The fat between TFL and rectus was identified to ensure the dissection was not within the TFL. Blunt dissection created space between abductors and the capsule and retractor was placed over the lateral femoral neck. The fibers of the rectus femoris tendon were identified and these were freed from the anterior capsule. A second cobra retractor was placed around the medial femoral neck. The TFL was further retracted laterally to show the deep fascia. Careful dissection through this layer identified three main crossing vessels of the lateral femoral circumflex. These were cauterized in multiple locations and then cut without any noticeable bleeding. The TFL was further released bluntly from the deep fascia to expose anterior hip capsule and fat The Minor orthopaedic retractor was then placed beneath the TFL and against sartorius and medial soft tissues to protect and retract the soft tissues. A T-capsulotomy was then performed starting at the superior lateral acetabulum and moving distally to the intertrochanteric ridge. These capsular flaps were tagged with a No. 1 Ethibond and elevated from within. The capsular flaps were released to the shoulder of the lateral neck and to the lesser trochanter to give excellent visualization of the proximal femur. A neck osteotomy was performed using an oscillating saw based on preoperative templates. This cut started in the shoulder and of the lateral neck and exited medially. The saw was at all times directed medially to avoid injury to the greater trochanter. Gross traction was applied to the leg and the osteotomy opened. The femoral head was removed with a corkscrew, making sure to protect the TFL on its exit. Traction was released after head removal. This was measured on the back table to determine the starting reamer size. Portions of the rectus obscuring visualization were minimally elevated off the superior acetabulum. An anterior retractor was placed over the anterior wall between capsule and labrum and attached to the Gripper retraction system. The femur was rotated to 90 degrees and medial capsule was fully released until the lesser trochanter was palpable and visible; the femur was returned to 30 degrees. A posterior retractor was placed similarly between capsule and labrum. This provided excellent visualization. The contents of the cotyloid fossa were removed with electrocautery and the labrum was removed with a knife. There was a notable floor osteophyte. Acetabular reaming began with a 45mm reamer. This first reaming was directed anterior to posterior and medial to get down to the true floor. This was inspected and reamed until the true floor was reached. The anterior retractor was then released and entry and exit was provided by traction on the capsular flaps. I then reamed sequentially up to a 48mm reamer where good fit was obtained. The larger reamers were oriented based on anatomical reference of the anterior and lateral arechiga to ensure proper abduction and anteversion. Positioning and size was confirmed with the fluoroscopy. A 48mm Depuy Goff acetabular component was selected. The acetabulum was reamed around the periphery with the selected acetabular size to prevent a rim fit. The deep tissues were irrigated. The acetabular component was then impacted in a position of about 40-45 degrees of abduction and 15-20 degrees of anteversion, using the patient?s anatomy as the ultimate landmark. Fluoroscopy was used to confirm this. There was excellent building manager of the acetabular component and the inserting handle was removed. The acetabular liner, Depuy [id number] polyethylene liner, was inserted and lined up with the tines of the acetabular component. There was no soft tissue interposition. The liner was then impacted into position and confirmed to be well-seated. A portion of the kenia-articular cocktail was then injected around the acetabulum into the capsule and periosteum. This cocktail consisted of 123mg of Ropivacaine, 0.25mg of Epinephrine, 0.04mg of Clonidine, and 15mg of Ketorolac, diluted to 50cc. The leg was rotated to 120 degrees. Any remaining medial capsule was released until the lesser trochanter was easily palpable. A retractor was placed medially. The lateral capsule was further released into the shoulder to allow access to the greater trochanter. A Bah retractor was placed over the greater trochanter which allowed the trochanter to flip in front of the capsule for excellent exposure. The leg was brought down into maximal extension and 20 degrees of adduction while ensuring there was no impingement on the acetabulum. Any remnant capsule within the trochanter was released. Piriformis and obturator externis were identified and protected. There was excellent access to the proximal femur. The lateral neck remnant was removed with a rongeur. A blunt canal probe was used to identify the canal and trajectory for later broaching. A box osteotome initiated the broach course. A small curved rasp and a curved curette were used to work laterally. Broaching then began with a size 8 Corail broach. This was inserted manually around the trochanter and into the canal before mallet blows. The broach was seated to a few millimeters below the cut level based on the neck cut and the preoperative template. Sequential broaching was continued with the [employer] pneumatic broaching device until a tight fit was obtained with good rotational control of the femur. A trial standard 125 neck was inserted along with a +1 trial head. The leg was brought out of extension and adduction and then reduced with traction and internal rotation. The leg was stable anteriorly in a position of 30 degrees of extension and 90 degrees of external rotation. Fluoroscopy was used to ensure there was no fracture and the stem was seated well. Leg lengths were checked with an AP pelvis and pelvic reference points. Curioos navigation system was used to confirm appropriate positioning and leg length and offset. Going to +5 would add just enough offset to return to normal. Once content with the desired offset and leg lengths, the leg was brought back into extension, external rotation and adduction. The periosteum and surrounding tissue was injected with remaining portion of the kenia-articular cocktail. The proximal femur was irrigated as well as the deep tissues. The Depuy Corail standard 125 collared stem, size 13, was then manually inserted into the proximal femur making sure to control rotation. It was then malleted into position with light blows, giving breaks to allow bone expansion and decrease risk of fracture. The selected Depuy Altrx Ceramic Head, size 32+5mm, was then placed onto the clean and dry trunnion and secured with impaction onto the tapered fit. The leg was brought back out of extension and adduction and reduced with traction and internal rotation. Stability was confirmed with no shuck at 90 degrees of external rotation and 30 degrees of extension. No impingement through range of motion arc. Final x-ray images were obtained with fluoroscopy to confirm adequate positioning and no intraoperative fracture. The deep tissues were thoroughly irrigated with Surgiphor, betadine solution. This was allowed to sit in the wound for 3 minutes before being thoroughly irrigated out with normal saline. The capsule was then reapproximated with the previously placed Ethibond sutures. The TFL fascia was finally closed with a No. 2 Stratafix, barbed suture. Deep tissues were then reapproximated with 0 Vicryl and a running 2-0 Vicryl. The skin was closed with a running 4-0 Monocryl in a subcuticular fashion. This was reinforced with skin glue. A Mepilex silver dressing was applied. At the end of the case, all counts were correct. Fatoumata was transferred to the hospital bed without difficulty and suffering no apparent complication. Fatoumata has a good prognosis. Physical therapy will start today and without restrictions, weight-bearing as tolerated. Aspirin 81mg BID will be used for DVT prophylaxis.
== END 2021-11-30 15:08 | disposition home or self-care (01) ==
PROVIDERS: PCP Nurse Practitioner Family; Visit Provider Student in an Organized Health Care Education/Training Program
PROC: (CPT 27130; principal; 2021-11-30 09:30)
DX: M16.11 Unilateral primary osteoarthritis, right hip (principal); I10 Essential (primary) hypertension; E78.5 Hyperlipidemia, unspecified
CPT/HCPCS: 27130; 20985; 97161; 73501; J0690; J1100; J2250; J2405

== ENCOUNTER 2021-12-13 11:58 | Outpatient (REF) | payer OTHER, SELFPAY ==
[2021-12-13 16:39] LABS: Vitamin B12 435 pg/mL (193-986)
== END 2021-12-13 11:59 | disposition home or self-care (01) ==
LOC: NCHCN 11:58
PROVIDERS: PCP Nurse Practitioner Family; Visit Provider Nurse Practitioner Family
DX: E53.8 Deficiency of other specified B group vitamins (principal)
CPT/HCPCS: 82607

== ENCOUNTER 2021-12-13 13:41 | Outpatient (CLI) | payer OTHER, SELFPAY ==
--- NOTE | 2021-12-13 13:00 | DI.RAD_ITS ---
Exam(s) XR HIP RT COMPLETE AP PELVIS EXAM: XR HIP RT COMPLETE AP PELVIS INDICATION: s/p right ROBLES. COMPARISON: CR XR HIP RT COMPLETE AP PELVIS from 10/18/2021 XA XR HIP RT IN OR from 11/30/2021 TECHNIQUE: 2D digital imaging was performed. Two views. FINDINGS: There has been no change in the alignment of the right hip prosthesis. No abnormal bony lucencies ar e seen. DATA REPOSITORY: RADIATION DOSE DELIVERED:
== END 2021-12-13 13:42 | disposition home or self-care (01) ==
LOC: DIORS 13:41
PROVIDERS: PCP Nurse Practitioner Family; Referring Provider Nurse Practitioner Family; Visit Provider Physician Assistant
DX: Z96.641 Presence of right artificial hip joint (principal)
CPT/HCPCS: 73502

== ENCOUNTER 2022-01-25 17:47 | Outpatient (REF) | payer OTHER, SELFPAY ==
[2022-01-25 16:21] LABS: Calculated LDL 113 mg/dL (<100); Cholesterol 184 mg/dL (<200); Glucose 86 mg/dL (74-106); HDL Cholesterol 58 mg/dL (40-60); Triglyceride 68 mg/dL (<150)
== END 2022-01-25 17:48 | disposition home or self-care (01) ==
LOC: NCHCN 17:47
PROVIDERS: PCP Nurse Practitioner Family; Visit Provider Nurse Practitioner Family
DX: E78.5 Hyperlipidemia, unspecified (principal); Z13.1 Encounter for screening for diabetes mellitus
CPT/HCPCS: 80061; 82947

== ENCOUNTER 2022-02-24 02:58 | Outpatient (CLI) | payer OTHER, SELFPAY ==
[2022-02-24 16:24] LABS: Abs Immature Grans 0.01 10^3/uL (0.0-0.06); Absolute Basophil Count 0.07 10^3/uL (0.0-0.2); Absolute Eosinophil Count 0.05 10^3/uL (0.0-0.7); Absolute Lymphocyte Count 1.73 10^3/uL (1.2-3.4); Absolute Neutrophil Count 3.55 10^3/uL (1.2-6.7); Basophils % 1.2; Eosinophils % 0.8; HCT 40.1 % (36.0-46.0); Immature Grans % 0.2; Lymphocytes % 29.3; MCH 30.2 pg (27.0-33.0); MCHC 32.4 % (32.0-36.0); MCV 93 fL (80-95); MPV 10.4 fL (8.0-11.0); Monocytes % 8.5; Platelet Count 204 10^3/uL (130-400); RBC 4.31 10^6/uL (3.93-5.22); RDW 12.4 % (11.7-14.6); RDW-SD 42.8 fL; WBC 5.91 10^3/uL (4.4-10.8)
[2022-02-24 16:36] LABS: Prothrombin Time 10.2 sec (9.3-11.0)
[2022-02-24 16:45] LABS: ALT 20 U/L (14-59); AST 21 U/L (15-37); Alkaline Phosphatase 81 U/L (46-116); Anion Gap 5.9 mmol/L (3-11); BUN 18 mg/dL (7-18); Bilirubin, Total 0.2 mg/dL (0.2-1.0); CO2 30.1 mmol/L (21.0-32.0); Calcium 8.4 mg/dL (8.5-10.1); Chloride 103 mmol/L (98-107); Estimated GFR 65.71 (mL/min/1.73m2); Glucose 95 mg/dL (74-106); Potassium 3.8 mmol/L (3.5-5.1); Sodium 139 mmol/L (136-145); Total Protein 7.4 g/dL (6.4-8.2)
== END 2022-02-24 02:59 | disposition home or self-care (01) ==
LOC: LBO 03:00
PROVIDERS: Student in an Organized Health Care Education/Training Program; PCP Nurse Practitioner Family; Visit Provider Nurse Practitioner Family
DX: K75.4 Autoimmune hepatitis (principal)
CPT/HCPCS: 36415; 80053; 85025; 85610

== ENCOUNTER 2022-02-26 09:33 | Outpatient (REF) | payer OTHER, SELFPAY ==
[2022-02-26 11:01] LABS: Creatinine,24hr Ur 0.65 g/24hr (0.60-1.80); Total Volume 1510 ml
[2022-02-28 09:22] LABS: Calcium Urine 4.3 mg/dL (See Note); Calcium Urine 24 hr 65 mg/24hrs (100-300); Timed Urine Volume 1510 mL
== END 2022-02-26 09:34 | disposition home or self-care (01) ==
LOC: LBN 09:33
PROVIDERS: PCP Nurse Practitioner Family; Visit Provider Internal Medicine
DX: M81.0 Age-related osteoporosis without current pathological fracture (principal)
CPT/HCPCS: 81050; 82340; 82570

== ENCOUNTER 2022-05-20 09:40 | Emergency (ER) | payer OTHER, SELFPAY ==
[2022-05-20 09:48] VITALS: BP 141/80; PULSE 95; RESP 16; TEMP 36.9; O2SAT 99
[2022-05-20] MEDS: Lidocaine 5% Patch 1 PATCH TP (10:05)
--- NOTE | 2022-05-20 10:22 | DI.RAD_ITS ---
Exam(s) XR RIBS LT W PA LAT CHEST CLINICAL HISTORY zzz COMPARISON: CT CT CHEST LUNG CANCER SCREEN from 09/10/2021 TECHNIQUE:: PA and lateral views of the chest and four views of the left ribs were performed. FINDINGS: LUNGS: Clear. No pleural abnormality seen. HEART: Normal. MEDIASTINUM: Normal. BONES: No displaced rib fracture is seen. No compression fractures are seen in the thoracic spine. No bony destructive lesion is seen. OTHER FINDINGS: Suture material and surgical clips left upper quadrant. IMPRESSION: 1. Unremarkable radiographic appearance of the left ribs. 2. No acute pulmonary findings.
--- NOTE | 2022-05-20 10:30 | W.ED.GENAD ---
Discharge Plan Disposition Patient Disposition: Home Discharge Details Clinical Impression: Chest wall contusion Primary Care Provider: Deborah Rao ED Provider: Stiven Carrillo Home Meds and New Rx's Prescriptions: No Action mycophenolate mofetil [CellCept] 500 mg tablet 1,000 mg PO BID prednisone 20 mg tablet 5 mg PO DAILY Rx Instructions: 06/09 pt is presently on prednisone 5 mg per day azathioprine 50 MG tablet 50 mg PO DAILY Metamucil [facility] Fiber 660 GM powder 1 tbs PO DAILY hydroxychloroquine 200 MG tablet 200 mg PO BID Otc Lax Patient Comments: no longer taking 05/20/2022 CT bupropion HCl [Wellbutrin SR] 150 mg Tablet Sustained-Release 12 Hr 150 mg PO BID Patient Comments: no longer taking 05/20/2022 CT aspirin 81 mg tablet,delayed release (DR/EC) 81 mg PO BID Qty: 60 0RF Patient Comments: no longer taking 05/20/2022 CT ergocalciferol (vitamin D2) 1,250 mcg (50,000 unit) capsule 1 unit PO 4-8XD Patient Comments: Take 1 capsule by mouth once a week. duloxetine 60 mg capsule,delayed release(DR/EC) 60 mg PO DAILY Patient Comments: Take 1 capsule by mouth daily. Discharge Instructions Instructions: Contusion in Adults (ED), Chest Wall Pain (ED) Additional Instructions: You may continue to use avzx-dwo-ylcdquy lidocaine or capsaicin cream or patches. You have been given a limited supply of narcotics and take as directed and only for severe pain. You may perform activities as tolerated by discomfort and if not improving in the next 1 to 2 weeks follow-up with your primary care provider for reassessment Referrals: Deborah Rao [Primary Care Provider] - Discharge Data Discharge Date/Time-TO BE ENTERED AT DEPARTURE: 05/20/22 11:29 Medical Decision Making Patient presenting to the emergency department for chief complaint of fall with left rib pain. Patient reports 2 days ago she fell landing on a board that struck her in the mid axillary region. Since then she has had pain and discomfort with breathing along with persistent discomfort to the area. Patient denies fever chills, head injury, loss of consciousness, or other symptoms. Physical exam consistent with patient's story and patient does have significant mid axillary tenderness on the left side. Normal cardiac and respiratory exam. We will plan on performing radiological imaging. Reviewed radiological imaging and radiologist interpretation and no acute findings are noted. Patient diagnosed with chest wall contusion and was recommended to continue to use lidocaine patches or reiw-ttc-szxifir cream. Given patient's allergies to standard ucgr-axv-ywvybxg meds we will give patient limited to go bottle of narcotics to help with severe pain and/or sleep. After discussion of diagnosis and plan of care patient has no further needs, questions, or concerns and states clear understanding to return to the emergency department for any worsening symptoms. This documentation was generated using [employer] system, please disregard any oddities of phrase or misspellings. Imaging Data Radiologic Study: Attestation: I personally reviewed and interpreted this imaging study as follows: Imaging: X-Ray Radiologist's impression: Exam(s) XR RIBS LT W PA LAT CHEST CLINICAL HISTORY zzz COMPARISON: CT CT CHEST LUNG CANCER SCREEN from 09/10/2021 TECHNIQUE:: PA and lateral views of the chest and four views of the left ribs were performed. FINDINGS: LUNGS: Clear. No pleural abnormality seen. HEART: Normal. MEDIASTINUM: Normal. BONES: No displaced rib fracture is seen. No compression fractures are seen in the thoracic spine. No bony destructive lesion is seen. OTHER FINDINGS: Suture material and surgical clips left upper quadrant. IMPRESSION: 1. Unremarkable radiographic appearance of the left ribs. 2. No acute pulmonary findings. HPI General Mode of arrival: ambulatory. Date/Time Provider Initiated Documentation: 05/20/22 09:56. Limitations to Documentation: no limitations. Information obtained by: patient and RN notes reviewed. History of Present Illness 57 year old F presents to the emergency department with the chief complaint of Left rib pain, described as moderate and severe, with intensity rated at 9. Quality is described as aching and sharp, and is localized to the chest and left. Patient reports no radiation. Patient started experiencing this day(s) (2) and it has been constant. No relieving factors improve symptom(s), No exacerbating factors reported . Patient notes no other symptoms.. Patient did receive the following treatments prior to arrival, none Related Data Home Medications Medication Instructions Recorded Confirmed azathioprine 50 mg tablet 50 mg PO DAILY 01/14/13 05/20/22 psyllium husk (aspartame) 3.4 1 tbs PO DAILY 03/17/13 05/20/22 gram/5.8 gram oral powder (Metamucil [facility] Fiber) Otc Lax 08/19/14 01/10/22 hydroxychloroquine 200 mg tablet 200 mg PO BID 08/19/14 05/20/22 mycophenolate mofetil 500 mg 1,000 mg PO BID 07/14/20 05/20/22 tablet (CellCept) prednisone 20 mg tablet 5 mg PO DAILY 11/25/21 05/20/22 bupropion HCl 150 mg tablet,12 hr 150 mg PO BID 11/29/21 01/10/22 sustained-release (Wellbutrin SR) aspirin 81 mg tablet,delayed 81 mg PO BID #60 tabs 11/30/21 01/10/22 release duloxetine 60 mg capsule,delayed 60 mg PO DAILY 05/20/22 05/20/22 release ergocalciferol (vitamin D2) 1,250 1 unit PO 4-8XD 05/20/22 05/20/22 mcg (50,000 unit) capsule Previous Rx's Medication Instructions Recorded aspirin 81 mg tablet,delayed 81 mg PO BID #60 tabs 11/30/21 release Allergies Allergy/AdvReac Type Severity Reaction Status Date / Time enoxaparin sodium Allergy severe Verified 05/20/22 10:05 [From Lovenox] bleeding sumatriptan succinate Allergy Verified 05/20/22 09:59 [From Imitrex] acetaminophen [From Tylenol] AdvReac hx Verified 05/20/22 09:59 hepeatits e NSAIDS (Non-Steroidal AdvReac Verified 05/20/22 09:59 Anti-Inflamma sumatriptan [From Imitrex] AdvReac muscle Verified 05/20/22 10:05 spasms General Stated Complaint: Fall/Non TraumaCriteria MANDA: 4 Review of Systems Constitutional Constitutional: Denies chills, Denies fever(s), Denies headache(s) and Denies weakness ENT Ears, Nose, Mouth, and Throat: Denies headache(s) Cardiovascular Cardiovascular: Denies chest pain and Denies syncope Respiratory Respiratory: Reports as per HPI, Denies cough, Reports pain on inspiration and Denies wheezing Gastrointestinal Gastrointestinal: Denies abdominal pain Neurologic Neurologic: Denies syncope, Denies headache(s) and Denies weakness Allergic/Immunologic Allergic/Immunologic: Denies wheezing PFSH All Active Problems (Updated 05/20/22 @ 11:11 by Stiven Carrillo NP) Chest wall contusion (Acute) Status post total replacement of right hip (Acute 11/30/21) Asymptomatic microscopic hematuria (Acute) Medical History (Updated 05/20/22 @ 11:11 by Stiven Carrillo NP) ARTHRITIS NOS AUTOIMMUNE HEPATIT GASTRIC BYPASS H/O ANXIETY/DEPRESSION H/O CERVICAL CA H/O HTN Hyperlipidemia Intertrigo Obesity SURGICALLY INDUCED MENOPAUSE TOBACCO USE DISORD Surgical History Abdominal hysterectomy Appendectomy Cholecystectomy Gastric Bypass BY KYLE REGAN MD IN 2004 Oophrectomy, Left Oophrectomy, Right Tonsillectomy and adenoidectomy Social History Smoking/Tobacco Use Status: Former Tobacco Use Quit Date: 07/21/21 Smoking risk assessment performed?: Yes Alcohol Intake: never Drug use: Never Substance use type: does not use Do you feel safe at home: Yes Do you feel safe in your relationship?: Yes Exam Const General: cooperative, no acute distress and not ill appearing Orientation: alert, awake and oriented x3 HENMT Head: normal to inspection, normocephalic and atraumatic Chest Chest: normal inspection of the chest and tenderness rib left mid-axillary line involving the 4th rib, involving the 5th rib, involving the 6th rib, involving the 7th rib and involving the 8th rib Resp Effort & Inspection: normal respiratory effort, able to speak in complete sentences and no respiratory distress Auscultation: clear to auscultation bilaterally Cardio Rate: regular rate Rhythm: regular rhythm Heart Sounds: S1 normal and S2 normal GI Inspection: normal to inspection and no abdominal wall ecchymosis Palpation: soft and nontender Skin General skin exam: no rashes or lesions noted Neuro General: patient alert, patient awake, patient oriented x3, moves all extremities and no focal motor deficits Sensory Exam: no sensory deficits noted Course Vital Signs Vital signs: Vital Signs Temperature 36.9 C 05/20/22 09:48 Pulse 95 H 05/20/22 09:48 Respiratory Rate 16 05/20/22 09:48 Blood Pressure 141/80 H 05/20/22 09:48 Pulse Oximetry 99 05/20/22 09:48 Temperature 36.9 C 05/20/22 09:48 Temperature Source Oral 05/20/22 09:48 Pulse 95 H 05/20/22 09:48 Respiratory Rate 16 05/20/22 09:48 Respiratory Effort Short of Breath 05/20/22 09:56 Blood Pressure 141/80 H 05/20/22 09:48 Blood Pressure Position Sitting 05/20/22 09:48 Pulse Oximetry 99 05/20/22 09:48 Oxygen Delivery Method Room Air 05/20/22 09:48 Oxygen Flow Rate 0 05/20/22 09:48 Pain Level 9 05/20/22 09:57
[2022-05-20 11:28] VITALS: PULSE 90; RESP 18; O2SAT 98
== END 2022-05-20 11:29 | disposition home or self-care (01) ==
PROVIDERS: Emergency Provider Nurse Practitioner Family; PCP Nurse Practitioner Family
DX: S20.212A Contusion of left front wall of thorax, initial encounter (principal); I10 Essential (primary) hypertension; Z79.82 Long term (current) use of aspirin; W19.XXXA Unspecified fall, initial encounter; W22.09XA Striking against other stationary object, initial encounter
CPT/HCPCS: 99283; 71046; 71100; 99284

== ENCOUNTER 2022-06-27 03:02 | Outpatient (CLI) | payer OTHER, SELFPAY ==
[2022-06-27 11:31] LABS: Abs Immature Grans 0.02 10^3/uL (0.0-0.06); Absolute Basophil Count 0.06 10^3/uL (0.0-0.2); Absolute Eosinophil Count 0.01 10^3/uL (0.0-0.7); Absolute Lymphocyte Count 1.01 10^3/uL (1.2-3.4); Absolute Monocyte Count 0.32 10^3/uL (0.1-0.8); Basophils % 1.1; Eosinophils % 0.2; HCT 41.5 % (36.0-46.0); HGB 13.6 g/dL (11.2-15.7); Immature Grans % 0.4; MCH 30.4 pg (27.0-33.0); MCHC 32.8 % (32.0-36.0); MCV 93 fL (80-95); MPV 9.8 fL (8.0-11.0); Monocytes % 5.7; Neutrophils % 74.6; Platelet Count 200 10^3/uL (130-400); RBC 4.48 10^6/uL (3.93-5.22); RDW 13.2 % (11.7-14.6); RDW-SD 44.8 fL; WBC 5.62 10^3/uL (4.4-10.8)
[2022-06-27 11:39] LABS: Prothrombin Time 10.2 sec (9.3-11.0)
[2022-06-27 12:16] LABS: ALT 26 U/L (14-59); AST 25 U/L (15-37); Alkaline Phosphatase 65 U/L (46-116); Anion Gap 8.8 mmol/L (3-11); BUN 20 mg/dL (7-18); Bilirubin, Total 0.3 mg/dL (0.2-1.0); CO2 29.2 mmol/L (21.0-32.0); CREATININE 0.9 mg/dL (0.55-1.02); Calcium 8.5 mg/dL (8.5-10.1); Chloride 103 mmol/L (98-107); Glucose 97 mg/dL (74-106); Potassium 4.5 mmol/L (3.5-5.1); Sodium 141 mmol/L (136-145); Total Protein 7.1 g/dL (6.4-8.2)
== END 2022-06-27 03:03 | disposition home or self-care (01) ==
PROVIDERS: Student in an Organized Health Care Education/Training Program; PCP Nurse Practitioner Family
DX: K75.4 Autoimmune hepatitis (principal)
CPT/HCPCS: 36415; 80053; 85025; 85610

== ENCOUNTER 2022-08-12 00:59 | Outpatient (CLI) | payer OTHER, SELFPAY ==
[2022-08-12] MEDS: Omnipaque 350 MG/ML 500 ML BTL-Imaging package IJ (08:37)
[2022-08-12] MEDS: Normal Saline - Diluent 50 ML VIAL IJ (08:38)
[2022-08-12] MEDS: Normal Saline Flush 10 ML SYR IVP (08:44)
--- NOTE | 2022-08-12 08:55 | DI.CT_ITS ---
Exam(s) CT ABDOMEN PELVIS WO/W EXAM: CT ABDOMEN PELVIS WO/W CLINICAL HISTORY: Microscopic hematuria, R31.9 TECHNIQUE: Imaging Protocol: Axial computed tomography images with coronal and sagittal reformatted images were created and reviewed CONTRAST MATERIAL: Intravenous: Omnipaque 350 Contrast volume:100 mL Oral: No COMPARISON: CT CT RENAL COLIC WO from 01/28/2020 FINDINGS: ABDOMEN: Lung Bases: Coronary artery calcification and/or stents are present. Liver: Normal density. No measurable mass. Portal, Superior Mesenteric, and Splenic Veins: Unremarkable. Gallbladder and Biliary Tract: The gallbladder is not visualized. There is no biliary ductal dilatat ion. Pancreas: Normal density, no abnormal calcifications or inflammatory process. Spleen: Normal. Adrenals: No masses seen. Kidneys: Normal size, contour and axis. There is a 1-2 mm nonobstructing stone in the midpole of the right kidney. No masses seen. Abdominal Aorta: Abdominal portion non-dilated. Atherosclerosis. Bowel: There is diverticulosis of the colon, but no evidence of acute diverticulitis. There are post surgical changes seen in the stomach and bowel. There is no evidence of bowel obstruction or bowel w all thickening. There is no evidence of appendicitis. Peritoneal Cavity: No ascites, collection or mesenteric inflammatory response. No free air. Lymph Nodes: Within normal limits. Bones: Within normal limits for the patient's age. Patient has a total right hip replacement. Soft Tissues: Unremarkable. There are postsurgical changes with mesh in the anterior abdominal wall. PELVIS: Bladder: Evaluation of the urinary bladder is limited by poor distension and artifact from the patien t's right hip replacement. No gross abnormalities identified. Reproductive Organs: Status post hysterectomy. Lymph Nodes: Within normal limits. Bones: Within normal limits for the patient's age. IMPRESSION: 1. 1-2 mm right nonobstructing ureteral stone. 2. No evidence of a renal or bladder mass. 3. Postsurgical changes in the anterior abdominal wall, stomach and bowel. 4. Colonic diverticulosis, without evidence of acute diverticulitis. RADIATION DOSE DELIVERED: 2,145.54mGy.cm Total DLP 2,145.54mGy.cm Total DLP DATA REPOSITORY: All CT scans at this facility are submitted to the National Radiology Data Registry (NRDR) Dose Index Registry (DIR) with the [employer] ([employer]). RADIATION OPTIMIZATION: All CT scans at this facility use at least one of these dose optimization te chniques: automated exposure control; mA and/or kV adjustment per patient size (includes targeted exa ms where dose is matched to clinical indication); or iterative reconstruction.
== END 2022-08-12 01:19 ==
LOC: DI 00:59
PROVIDERS: PCP Nurse Practitioner Family; Visit Provider Nurse Practitioner Gerontology
DX: R31.9 Hematuria, unspecified (principal); Z98.890 Other specified postprocedural states; K57.30 Diverticulosis of large intestine without perforation or abscess without bleeding; N20.0 Calculus of kidney
CPT/HCPCS: 74178

== ENCOUNTER 2022-09-07 04:31 | Outpatient (CLI) | payer OTHER, SELFPAY ==
[2022-09-07 16:24] LABS: Abs Immature Grans 0.01 10^3/uL (0.0-0.06); Absolute Basophil Count 0.05 10^3/uL (0.0-0.2); Absolute Eosinophil Count 0.03 10^3/uL (0.0-0.7); Absolute Lymphocyte Count 1.19 10^3/uL (1.2-3.4); Absolute Monocyte Count 0.46 10^3/uL (0.1-0.8); Absolute Neutrophil Count 3.66 10^3/uL (1.2-6.7); Basophils % 0.9; Eosinophils % 0.6; HCT 38.5 % (36.0-46.0); HGB 12.9 g/dL (11.2-15.7); Immature Grans % 0.2; MCH 31.1 pg (27.0-33.0); MCHC 33.5 % (32.0-36.0); MCV 93 fL (80-95); MPV 10.4 fL (8.0-11.0); Monocytes % 8.5; Neutrophils % 67.8; Platelet Count 173 10^3/uL (130-400); RBC 4.15 10^6/uL (3.93-5.22); RDW 13.2 % (11.7-14.6)
[2022-09-07 17:30] LABS: ALT 25 U/L (14-59); AST 24 U/L (15-37); Albumin 3.9 g/dL (3.4-5.0); Alkaline Phosphatase 70 U/L (46-116); Anion Gap 9.1 mmol/L (3-11); BUN 24 mg/dL (7-18); Bilirubin, Direct 0.1 mg/dL (0.0-0.2); Bilirubin, Total 0.3 mg/dL (0.2-1.0); CO2 28.9 mmol/L (21.0-32.0); Calcium 8.7 mg/dL (8.5-10.1); Chloride 106 mmol/L (98-107); Glucose 90 mg/dL (74-106); Potassium 4.5 mmol/L (3.5-5.1); Sodium 144 mmol/L (136-145); Total Protein 6.5 g/dL (6.4-8.2)
== END 2022-09-07 04:32 | disposition home or self-care (01) ==
PROVIDERS: PCP Nurse Practitioner Family; Visit Provider Student in an Organized Health Care Education/Training Program
DX: K75.4 Autoimmune hepatitis (principal)
CPT/HCPCS: 36415; 80053; 80076; 85025; 85610

== ENCOUNTER 2022-11-16 05:59 | Day surgery (SDC) | payer OTHER, SELFPAY ==
[2022-11-16 06:22] VITALS: BP 124/79; PULSE 76; RESP 16; TEMP 36.5; O2SAT 99
[2022-11-16] MEDS: Lactated Ringers 1,000 ML 80 ML IV (06:34)
--- NOTE | 2022-11-16 06:36 | PGE_ITS ---
Date of Service Date of service: 11/16/22 Time of Service: 06:51 Assessment and Plan Assessment and plan (1) Sebaceous cyst: Status: Acute Assessment and plan: Amie Noriega is a pleasant 57-year-old female who is here because of 2 sebaceous cysts, 1 on the right posterior neck and 1 on the right occipital scalp.? They are both causing some irritation at this point.? We discussed removal in the office under local anesthetic versus removal in the operating room/procedure room with some mild sedation.? The patient does not feel that she can have this done under local anesthetic only.? I described the procedure in detail.? We reviewed the risks, benefits and complications of the procedure.? At the end of her conversation she had a good understanding of both the procedure and its possible complications.? Complications include but are not limited to bleeding, infection, wound dehiscence, injury to underlying structures and adverse reaction to the anesthesia medications which could include bradycardia, hypotension, hypoxia. I spoke with her again today in [facility]. She has no more questions regarding the procedure and its possible complications. She wishes to proceed. Subjective Subjective Interval history since last seen: Patient seen in [facility] this morning. She is doing well. We reviewed the plan for today. She has had no new symptoms. No new redness or discharge from the sebaceous cysts. Exam HENNE Other: right occipital area- small 1 x 1.3 cm sebaceous cyst. No signs of infection Neck Other: right posterior neck- 2 x 1 cm sebaceous cyst. No signs of infection Objective Last Vital Signs Temp 97.7 F 11/16/22 06:22 Pulse 76 11/16/22 06:22 Resp 16 11/16/22 06:22 BP 124/79 11/16/22 06:22 Pulse Ox 99 11/16/22 06:22 Time Spent with Patient Time Spent with Patient: <25 minutes Time was spent: counseling the patient
--- NOTE | 2022-11-16 06:37 | ROE_ITS ---
Date of service: 11/16/22 Time of Service: 08:00 Operative Note Operative Note DATE OF PROCEDURE: 11/16/22 PRE-OP DIAGNOSIS: Sebaceous cysts of head and neck POST-OP DIAGNOSIS: same PROCEDURE: excision of sebaceous cysts SURGEON: Ellie Villavicencio PACK PRESS OPERATOR: Sona Patten ANESTHESIA TYPE: Local By Surgeon and MAC Refer to Anesthesia Record ESTIMATED BLOOD LOSS: 2 PATHOLOGY: none sent COMPLICATIONS: None Patient was transported to: same day Patient's condition: stable Indications: Amie Noriega is a pleasant 57-year-old female who is here because of 2 sebaceous cysts, 1 on the right posterior neck and 1 on the right occipital scalp.? There both causing some irritation at this point.? We discussed removal in the office under local anesthetic versus removal in the operating room/procedure room with some mild sedation.? The patient does not feel that she can have this done under local anesthetic only.? I described the procedure in detail.? We reviewed the risks, benefits and complications of the procedure.? At the end of her conversation she had a good understanding of both the procedure and its possible complications.? Complications include but are not limited to bleeding, infection, wound dehiscence, injury to underlying structures and adverse reaction to the anesthesia medications which could include bradycardia, hypotension, hypoxia. Procedure Description: After informed consent was obtained the patient was taken to the Operating room and placed in a left decubitous position. The skin was then prepped with chlorhexedine and draped in a sterile surgical fashion. The dermis and subcutaneous tissue was infiltrated with 0.5% Marcaine with epi over both cysts. An incision was made over the palpable lesion in the occipital area with a 15 blade. Dissection was done around the lesion using both blunt dissection with a hemostat and sharp dissection with curved iris scissors. Once the lesion was completely dissected it was removed from the operating field. The wound was irrigated with some saline. Once the wound was clean and dry the dermis was c losed with a interrupted 4-0 proline suture. Next an incision was made over the palpable lesion in the posterior neck with a 15 blade. Dissection was done around the lesion using both blunt dissection with a hemostat and sharp dissection with curved iris scissors. Once the lesion was completely dissected it was removed from the operating field. The wound was irrigated with some saline. Once the wound was clean and dry the dermis was closed with a interrupted 4-0 proline suture. Next the skin was cleaned and dried. A Band-aid was placed over the posterior neck incision. The patient tolerated the procedure well and there were no immediate complications. Needle counts were correct at the end of the case.
--- NOTE | 2022-11-16 06:38 | PDOC.DSDIS_ITS ---
Date of service: 11/16/22 Time of Service: 08:25 Discharge Plan Disposition Patient Disposition: Home Condition: Stable Discharge Details Reason For Visit: Sebaceous cyst Attending Provider: Ellie Villavicencio Primary Care Provider: Deborah Rao Home Meds and New Rx's Prescriptions: New celecoxib [Celebrex] 100 mg capsule 100 mg PO BID Qty: 14 0RF Continued mycophenolate mofetil [CellCept] 500 mg tablet 1,000 mg PO DAILY Linzess 290 mcg capsule 290 mcg PO HS prednisone 20 mg tablet 5 mg PO DAILY Rx Instructions: 06/09 pt is presently on prednisone 5 mg per day azathioprine 50 MG tablet 50 mg PO DAILY Metamucil [facility] Fiber 660 GM powder 1 tbs PO DAILY hydroxychloroquine 200 MG tablet 200 mg PO BID polyethylene glycol 3350 [Miralax] 17 gram Powder In Packet 17 g PO DAILY PRN bisacodyl 5 mg Tablet 5 mg PO QHS PRN Discharge Instructions Additional Instructions: Activity at Home after surgery: 1.As tolerated Diet, Nutrition, & wound healin. As tolerated Pain Medications: 1. Celebrex 100 mg 2 x a day as needed For Constipation: 1. Take Milk of Magnesia or MiraLax as needed for constipation Other: 1. You may shower daily. Do not scrub the incisions 2. Do not soak the incisions for 1 week 3. You may alternate ice and heat as needed for pain and swelling Wound Care: 1. Keep the incisions clean and dry Please call our office if you develop: 1. Fevers >101.5 2. Worsening pain 3. Redness and thick discharge from the wounds If after hours please call the Hospital at and ask to speak to the on-call surgeon Dr. Villavicencio's cell: . If I do not answer I may not had service. Please leave a message. If I do not call back within 30 minutes please call the hospital and ask for internal combustion engineer surgeon to be paged Referrals: Ellie Villavicencio MD [ [facility] STAFF PHYSICIAN] - 11/25/22 9:30 am Activity:: Activity as Tolerated Shower/Bathe:: 24 hours Diet:: As Tolerated Discharge Orders Discharge Orders: Discharge Order (Routine); Ordered 11/16/22 Ordered By: Ellie Villavicencio DS: Diagnosis Discharge Diagnosis (1) Sebaceous cyst: Status: Acute Asessment and Plan: The patient is doing well post-op from their excision of sebaceous cyst surgery.? They are having no nausea or vomiting. They are tolerating liquids and a snack. The pt is not having any chest pain or SOB.? Their pain is adequately controlled. They have been able to urinate.? ?HEENT:? no eye pain/drainage/redness/swelling. Mild sore throat ?Cardio- NSR, no chest pain, BP stable- see VS record ?Pulm: no sob or productive cough. No hemoptysis ?Incision- dressing is c/d/i w/ no excessive bleeding or drainage ?I discussed with the patient the findings at the time of surgery and the patient?s progress. ?We reviewed expectations at home; what the patient could expect for recovery time, and in the post-operative period.? We discussed the importance of walking to avoid blood clots and pneumonia.? We discussed and reviewed the patient's post-operative wound care and dressing needs.?? We reviewed their step-murdock pain management plan, Rx called to the pharmacy of their choice.? We reviewed activity and limitations-see discharge instructions. We reviewed warning signs, and when to seek medical attention- see d/c instructions.?? Patient was given a postoperative follow-up appointment. Patient verbalized understanding of their postoperative instructions, how do to take care of themselves and their incision, and the pain management plan. Please see discharge instructions.?
--- NOTE | 2022-11-16 07:13 | W.ANESPRE ---
General Info Date of Service Date Performed: 11/16/22 Height: 5 ft Weight: 70.9 kg Body Mass Index (BMI): 30.5 Surgical Procedure: Operation Date: 11/16/22 07:40 Proposed Procedure Side Surgeon p Excision Sebaceous Cyst of posterior neck and scalp on right Right Ellie Villavicencio MD Actual Procedure Side Surgeon p Excision Sebaceous Cyst of posterior neck and scalp on right Right Ellie Villavicencio MD Pre-Op Diagnosis Post-Op Diagnosis Sebaceous cyst Sebaceous cyst Meds Allergies and Home Medications Allergies Allergy/AdvReac Type Severity Reaction Status Date / Time sumatriptan succinate Allergy Verified 11/16/22 06:18 [From Imitrex] enoxaparin sodium AdvReac Severe severe Verified 11/16/22 06:18 [From Lovenox] bleeding acetaminophen [From Tylenol] AdvReac hx Verified 11/16/22 06:18 hepeatits e NSAIDS (Non-Steroidal AdvReac Verified 11/16/22 06:18 Anti-Inflamma sumatriptan [From Imitrex] AdvReac muscle Verified 11/16/22 06:18 spasms Home Medication Medication Instructions Recorded azathioprine 50 mg tablet 50 mg PO DAILY 01/14/13 psyllium husk (aspartame) 3.4 1 tbs PO DAILY 03/17/13 gram/5.8 gram oral powder (Metamucil [facility]) hydroxychloroquine 200 mg tablet 200 mg PO BID 08/19/14 prednisone 20 mg tablet 5 mg PO DAILY 11/25/21 mycophenolate mofetil 500 mg 1,000 mg PO DAILY 10/11/22 tablet (CellCept) linaclotide 290 mcg capsule 290 mcg PO HS 11/08/22 (Linzess) bisacodyl 5 mg tablet 5 mg PO QHS PRN 11/16/22 polyethylene glycol 3350 17 gram 17 g PO DAILY PRN 11/16/22 oral powder packet (Miralax) Current Visit Medications: Current Medications Generic Name Dose Route Start Last Admin Trade Name Freq PRN Reason Stop Dose Admin Ringer's Solution 1,000 mls @ 80 mls/hr 11/16/22 06:00 11/16/22 06:34 IV 12/15/22 23:59 80 mls/hr INFUSION SHRADDHA Administration Ondansetron HCl 4 mg/ Sodium 52 mls @ 200 mls/hr 11/16/22 06:39 Chloride IVPB 12/16/22 06:38 Q6H PRN PRN IV Miscellaneous Supplies 1 each 11/16/22 06:00 Iv Access IV 12/15/22 23:59 DIRECTED SHRADDHA Sodium Chloride 0 ml 11/16/22 06:00 Normal Saline Flush 10 Ml Syr IV 12/15/22 23:59 PRN PRN Sodium Chloride 0 ml 11/16/22 06:00 Normal Saline 10 Ml Vial IJ 12/15/22 23:59 DIRECTED PRN Sterile Water 0 ml 11/16/22 06:00 Water,Injection,Sterile 10 Ml Vial IJ 12/15/22 23:59 DIRECTED PRN PFSH Active Problems Active Problems: Problem Status Onset Code Asymptomatic microscopic hematuria R31.21 Status post total replacement of right hip 11/30/21 Z96.641 Sebaceous cyst L72.3 Medical History Medical History ARTHRITIS NOS AUTOIMMUNE HEPATIT GASTRIC BYPASS H/O ANXIETY/DEPRESSION H/O CERVICAL CA H/O HTN Hyperlipidemia Intertrigo Obesity SURGICALLY INDUCED MENOPAUSE TOBACCO USE DISORD Surgical History Surgical History (Updated 11/16/22 @ 06:17 by Jacques Raygoza) Abdominal hysterectomy Appendectomy Cholecystectomy Gastric Bypass BY KYLE REGAN MD IN 2004 History of right hip replacement Hx of cataract removal with insertion of prosthetic lens Hx of hernia repair Oophrectomy, Left Oophrectomy, Right Tonsillectomy and adenoidectomy Tobacco Smoking/Tobacco Use Status: Former Tobacco Use Alcohol Alcohol Intake: never Substance Use Substance use: Never Substance use type: does not use Vital Signs and Lab Results Vital Signs Most Recent Vital Signs in EMR: Most Recent Vital Signs Temp Pulse Resp BP Pulse Ox 36.5 C 76 16 124/79 99 11/16/22 06:22 11/16/22 06:22 11/16/22 06:22 11/16/22 06:22 11/16/22 06:22 Lab Results Blood Type / Crossmatch: No Data to Display Complete Blood Count: No Data to Display Complete Metabolic Panel: No Data to Display Liver Function Panel: No Data to Display Coagulation Panel: No Data to Display Cardiac Panel: No Data to Display Arterial Blood Gas: No Data to Display Venous Blood Gas: No Data to Display Pancreas Panel: No Data to Display Thyroid Panel: No Data to Display Infectious Disease: No Data to Display Blood Cultures: No Data to Display Toxicology Panel: No Data to Display Anesthesia Assessment and Plan Anesthesia History Personal History: No History of Anesthesia Complications Family History: No Family History of Anesthesia Complications Exercise Tolerance Exercise Tolerance: Metabolic Equivalents>4 Pertinent Negatives Pertinent Negatives: No Symptoms of GERD, No Major Cardiovascular Symptoms or Complaints and No Major Pulmonary Symptoms or Complaints Cardiac & Pulmonary Exam Cardiac Exam: Normal S1/S2 Heart Sounds Pulmonary Exam: Clear Bilateral Breath Sounds Implantable Cardiac Device Does patient have a Pacemaker or an ICD?: No Airway Exam Known Difficult Airway: No Mallampati Class: 2 Mouth Opening: Normal (> 3cm) Thyromental Distance: Greater than 3 cm Neck Range of Motion: Full ROM Neck Circumference: Normal Teeth Condition: Normal Dentition ASA Classification ASA Score: ASA 3 Emergency Case?: No NPO Status NPO Status: NPO Clears >2 hours, Solids >8 hours Anesthesia Plan Resuscitation Status: Full Code Anesthesia Technique: General Anesthesia Airway Planned: Natural Airway Monitors Used: Standard Monitors
[2022-11-16 07:17] VITALS: BMI 30.5
[2022-11-16 08:01] VITALS: BP 115/59; PULSE 68; RESP 16; TEMP 36.6; O2SAT 99
--- NOTE | 2022-11-16 08:10 | W.ANESPOSTOP ---
Postoperative Evaluation Date, Time and Location Date Performed: 11/16/22 Time Performed: 08:10 Patient Location: Day Surgery Unit Vital Signs Most Recent Imported Vital Signs: Most Recent Vital Signs Temp Pulse Resp BP Pulse Ox 36.6 C 68 16 115/59 L 99 11/16/22 08:01 11/16/22 08:01 11/16/22 08:01 11/16/22 08:01 11/16/22 08:01 Pain Score Most Recent Pain Score: Most Recent Pain Score Pain Level 0 11/16/22 08:01 Assessment Mental Status: Awake (Alert & Oriented to Patient Baseline) Airway and Respiratory Function: Patent airway with normal (patient baseline) respiratory exam Cardiovascular Function: Hemodynamically Stable Hydration Status: Adequately Hydrated Nausea & Vomiting: No Nausea or Vomiting Pain: Pt. Denies Any Pain Peripheral Nerve Block: Patient did not receive a nerve block
[2022-11-16 08:30] VITALS: BP 119/60; PULSE 80; RESP 16; TEMP 37; O2SAT 99
== END 2022-11-16 08:55 | disposition home or self-care (01) ==
PROVIDERS: PCP Nurse Practitioner Family; Visit Provider Surgery
PROC: (CPT 11422; principal; 2022-11-16 07:30)
DX: L72.3 Sebaceous cyst (principal); E78.5 Hyperlipidemia, unspecified; F17.210 Nicotine dependence, cigarettes, uncomplicated; E66.9 Obesity, unspecified; Z98.84 Bariatric surgery status; Z68.30 Body mass index [BMI] 30.0-30.9, adult
CPT/HCPCS: 11422 ×2; J2250; J2405; J2704

== ENCOUNTER 2022-12-05 15:30 | Outpatient (CLI) | payer OTHER, SELFPAY ==
--- NOTE | 2022-12-05 15:15 | DI.RAD_ITS ---
Exam(s) XR HIP RT AP LAT ONLY EXAM: XR HIP RT AP LAT ONLY CLINICAL HISTORY: ANNUAL F/U R ROBLES. TECHNIQUE: 2D digital imaging was performed. Two images were obtained. AP and lateral views were ob tained. COMPARISON: CR XR HIP RT COMPLETE AP PELVIS from 12/13/2021 FINDINGS: BONES: There are stable post operative changes of a right total hip replacement present. No fracture or dislocation. JOINTS: The orthopedic hardware is in good position. No evidence of hardware loosening. SOFT TISSUE: Normal. IMPRESSION: Stable postoperative changes. DATA REPOSITORY: RADIATION DOSE DELIVERED:
== END 2022-12-05 15:31 | disposition home or self-care (01) ==
LOC: DIORS 15:30
PROVIDERS: PCP Nurse Practitioner Family; Visit Provider Student in an Organized Health Care Education/Training Program
DX: Z96.641 Presence of right artificial hip joint (principal); Z47.1 Aftercare following joint replacement surgery
CPT/HCPCS: 73502

== ENCOUNTER 2022-12-23 03:01 | Outpatient (CLI) | payer OTHER, SELFPAY ==
[2022-12-23 16:48] LABS: ALT 48 U/L (14-59); AST 34 U/L (15-37); Albumin 3.9 g/dL (3.4-5.0); Alkaline Phosphatase 89 U/L (46-116); Bilirubin, Direct 0.1 mg/dL (0.0-0.2); Bilirubin, Total 0.3 mg/dL (0.2-1.0)
== END 2022-12-23 03:02 | disposition home or self-care (01) ==
PROVIDERS: PCP Nurse Practitioner Family; Visit Provider Student in an Organized Health Care Education/Training Program
DX: K75.4 Autoimmune hepatitis (principal)
CPT/HCPCS: 36415; 80076

== ENCOUNTER → 2023-01-16 02:03 | Outpatient (CLI) | payer OTHER, SELFPAY ==
--- NOTE | 2023-01-16 15:53 | DI.RAD_ITS ---
Exam(s) RF SITZ MARKER STUDY EXAM: 2D digital imaging was performed. CLINICAL HISTORY: CHRONIC CONSTIPATION NOT RESPONDING TO LAXATIVES. COMPARISON: CR RF SITZ MARKER STUDY from 01/16/2023 CR RF SITZ MARKER STUDY from 01/16/2023 TECHNIQUE: Supine views of the abdomen performed 3 separate days FINDINGS: Examination is somewhat confusing because this patient has had prior anterior abdominal wall mesh her johan repair and the appearance of the circular metallic structures associated with the mesh have simil ar appearance to the Sitz markers when viewed en face. There also surgical clips evident in the ab domen and pelvis. Images of 01/16/2023: There are 9 Sitz markers in the cecal tip region as well as 9 remaining Sitz ma rkers in the hepatic flexure and proximal transverse colon. Images of 01/18/2023: There is only 1 remaining Sitz marker in the cecal tip. There few in the trans verse colon and rectum now evident. Images of 01/20/2023: There are 2 Sitz markers in the rectum on this final image. Most of the cysts markers have been expelled. The numerous remaining round similar size ring-like densities appear to be related to the hernia mesh. IMPRESSION: 1. Interpretation is made difficult because of the similar appearance of the Sitz markers and the num erous similar round metallic densities associated with the anterior abdominal hernia mesh. 2. However, by the 3rd set of images (01/20/2023) all of the Sitz markers which were previously prese nt in the right-side of the colon have propagated distally and appear to have been evacuated with the exception of 2 remaining Sitz markers in the rectum. DATA REPOSITORY: RADIATION DOSE DELIVERED:
== END ==
PROVIDERS: PCP Nurse Practitioner Family; Visit Provider Student in an Organized Health Care Education/Training Program
DX: K59.00 Constipation, unspecified (principal)
CPT/HCPCS: 74250

== ENCOUNTER 2023-01-27 01:48 | Outpatient (CLI) | payer OTHER, SELFPAY ==
--- OUTSIDE RECORDS SUMMARY | 2023-01-27 01:59 | XMS_ITS | Continuity of Care Document ---
Author Name Unknown Organization [facility] Address [address] [place] [id number] Encounter [facility]_[place] FIN NBR [id number] Date(s): 03/14/22 - 03/14/[address] [address]- [place] Discharge Disposition: Home or Self Care Attending Physician: Abelardo Vo MD Admitting Physician: Abelardo Vo MD Allergies, Adverse Reactions, Alerts Substance Reaction Severity Status Lovenox Bleeding from mouth Severe Active Imitrex Muscle spasm Mild Active Tylenol Liver disease Mild Active NSAIDs Liver disease Mild Active Assessment and Plan Future Appointments Functional Status 03/14/22 Other exposure to Infectious Disease Non e Medications azaTHIOprine 75 mg oral tablet 75 mg = 1 tab, Oral, Daily, # 30 tab, 0 Refill(s) Start Date: 03/14/22 Status: Ordered BuPROPion (Eqv-Wellbutrin SR) 150 mg/12 hours oral tablet, extended release Take 1 tablet by mouth once daily for 3 days; then increase to 1 tablet twice daily. Start Date: 03/14/22 Status: Ordered calcium citrate 950 mg (200 mg elemental calcium) oral tablet Take 1 tablet by mouth 2 times daily. Start Date: 03/14/22 Status: Ordered ergocalciferol 1.25 mg (50,000 intl units) oral capsule Take 1 capsule by mouth once a week. Start Date: 03/14/22 Status: Ordered hydroxychloroquine 200 mg oral tablet TAKE 1 TABLET BY MOUTH TWICE DAILY. Start Date: 03/14/22 Status: Ordered mycophenolate mofetil 500 mg oral tablet Take 2 tablets by mouth 2 times daily. Start Date: 03/14/22 Status: Ordered predniSONE 5 mg oral tablet TAKE 1 TABLET BY MOUTH ONCE DAILY Start Date: 03/14/22 Status: Ordered Problem List Condition Confirmation Course Effective Dates Status Health St atus Informant Anemia Confirmed Active Autoimmune hepatitis Confirmed Active B12 deficiency monitoring Confirmed Active Constipation Confirmed Active Fibrosis of liver Confirmed Active Inflammatory arthritis Confirmed Active Osteoporosis Confirmed Active Procedures Procedure Date Related Diagnosis Body Site Status Gastric bypass Completed Hernia repair Completed Laparoscopy Completed Tonsillectomy and adenoidectomy Completed Total hysterectomy Comple yessenia Vital Signs Most recent to oldest [Reference Range]: 1 Weight 66.000 kg (03/14/22 1:01 PM) Weight Dosing 66.000 kg (03/14/22 1:01 PM) Height 152.000 cm (03/14/22 1:01 PM) Height/Length Dosing 152.000 cm (03/14/22 1:01 PM) Social History Social History Type Response Tobacco Former tobacco user Tobacco Use:. Started age 56.0 Years. Sex History and physical note * Event Display: History and Physical
--- OUTSIDE RECORDS SUMMARY | 2023-01-27 01:59 | XMS_ITS | Continuity of Care Document ---
Author Name Unknown Organization [facility] Address [address] [place] [id number] Encounter [facility]_[place] FIN NBR [id number] Date(s): 03/16/22 - 03/16/[address] [address] Encounter Diagnosis Nuclear age-related cataract, right eye(Discharge Diagnosis) - 03/15/22 Cortical age-related cataract, right eye(Discharge Diagnosis) - 03/15/22 Posterior subcapsular age-related cataract, right eye(Discharge Diagnosis) - 03/15/22 Discharge Disposition: Home f/u External Provider Attending Physician: Abelardo Vo MD Admitting Physician: Abelardo Vo MD Referring Physician: Abelardo Vo MD Allergies, Adverse Reactions, Alerts Substance Reaction Severity Status Lovenox Bleeding from mouth Severe Active Imitrex Muscle spasm Mild Active Tylenol Liver disease Mild Active NSAIDs Liver disease Mild Active Functional Status 03/16/22 Family Member Travel History No recent t ravel Recent Travel History No recent travel Other exposure to Infectious Disease Non e [...] times daily. Start Date: 03/14/22 Status: Ordered prednisolone/moxifloxacin/nepafenac 1%-0.5%-0.1% ophthalmic suspension 1 drops, OPHTH, As Directed, 0 Refill(s) Start Date: 03/16/22 Status: Ordered predniSONE 5 mg oral tablet [...] Procedure Date Related Diagnosis Body Site Status Cataract Extraction with IOL (Right) 1 03/16/22 Completed Gastric bypass Completed Hernia repair Completed Laparoscopy Completed Tonsillectomy and adenoidectomy Completed Total hysterectomy Comple yessenia 1auto-populated from documented surgical case Vital Signs Most recent to oldest [Reference Range]: 1 2 3 Temperature Temporal Artery [36-38 Deg C] 37.8 Deg C (03/16/22 10:29 AM) Peripheral Pulse Rate [60-100 bpm] 78 bpm (03/16/22 12:31 PM) 70 bpm (03/16/22 12:15 PM) 64 bpm (03/16/22 12:10 PM) Heart Rate Monitored [60-100 bpm] 74 bpm (03/16/22 10:29 AM) Respiratory Rate [12-24 br/min] 16 br/min (03/16/22 10:29 AM) Blood Pressure [90-140/60-90 mmHg] 109/58mmHg (03/16/22 12:15 PM) 111/66mmHg (03/16/22 12:10 PM) 119/65mmHg (03/16/22 10:29 AM) Mean Arterial Pressure, Cuff [65-140 mmHg] 75 mmHg (03/16/22 12:15 PM) 81 mmHg (03/16/22 12:10 PM) Mean Arterial Pressure Cuff 74 mmHg (03/16/22 12:15 PM) 77 mmHg (03/16/22 12:10 PM) Social History Social History Type Response Tobacco Former tobacco user Tobacco Use:. Started age 56.0 Years. Sex Implantable Device List Procedure Provider Procedure Date Device Type Site Extracapsular cataract remov al with insertion of intraocular lens prosthesis (1 stage procedure), manual or mechanical technique (eg, irrigation and aspiration or phacoemulsification); without endoscopic cyclophotocoagulation Abelardo Vo MD 03/16/22 Non Biological Eye R Device Identifier Serial Number Lot or Batch Number Manufacturing Date Expiration Date Distinct Identification Code MRI Safety Implantable Status Assigning Authority Unknown [id number] Unknown Unknown 09/17/24 Unknown Unknown Active Unknown Discharge instructions * Event Display: Discharge Instructions History and physical note * Event Display: History and Physical Update
--- OUTSIDE RECORDS SUMMARY | 2023-01-27 01:59 | XMS_ITS | Continuity of Care Document ---
Author Name Unknown Organization [facility] Address [address] [place] [id number] Care Team Providers Care Ice Cream Vendor Name Role Phone DANISH GONZALEZ Primary Care Physician Encounter TL_WI FIN NBR [phone] Date(s): 03/30/22 - 03/30/[address] [id number]- Encounter Diagnosis Nuclear age-related cataract, left eye(Discharge Diagnosis) - 03/28/22 Cortical age-related cataract, left eye(Discharge Diagnosis) - 03/28/22 Posterior subcapsular age-related cataract, left eye(Discharge Diagnosis) - 03/28/22 Discharge Disposition: Home f/u External Provider Attending Physician: Abelardo Graham MD Admitting Physician: Abelardo Graham MD Referring Physician: Abelardo Graham MD Allergies, Adverse Reactions, Alerts Substance Reaction Severity Status Lovenox Bleeding from mouth Severe Active Imitrex Muscle spasm Mild Active Tylenol Liver disease Mild Active NSAIDs Liver disease Mild Active Functional Status 03/30/22 Recent Travel History No recent travel Other [...] 0 Refill(s) Start Date: 03/16/22 Status: Ordered prednisolone/moxifloxacin/nepafenac 1%-0.5%-0.1% ophthalmic suspension 1 drops, OPHTH, As Directed, 0 Refill(s) Start Date: 03/30/22 Status: Ordered predniSONE 5 mg oral tablet TAKE 1 TABLET BY MOUTH ONCE DAILY Start Date: 03/14/22 Status: Ordered Problem List Condition Confirmation Course Effective Dates Status Health St atus Informant Anemia Confirmed Active Autoimmune hepatitis Confirmed Active B12 deficiency monitoring Confirmed Active Constipation Confirmed Active Fibrosis of liver Confirmed Active Inflammatory arthritis Confirmed Active Lyme disease Confirmed Active Osteoporosis Confirmed Active Procedures Procedure Date Related Diagnosis Body Site Status Cataract Extraction with IOL (Left) 1 03/30/22 Completed Cataract Extraction with IOL (Right) 2 03/16/22 Completed Gastric bypass Completed Hernia repair Completed Laparoscopy Completed Tonsillectomy and adenoidectomy Completed Total hysterectomy Comple yessenia 1auto-populated from documented surgical case 2auto-populated from documented surgical case Vital Signs Most recent to oldest [Reference Range]: 1 2 3 Temperature Temporal Artery [36-38 Deg C] 36.5 Deg C (03/30/22 1:41 PM) 37.1 Deg C (03/30/22 11:19 AM) 37.1 Deg C (03/30/22 11:13 AM) Temperature Temporal Artery (DegF) [97.3-100 Deg F] 97.7 Deg F (03/30/22 1:41 PM) 98.78 Deg F (03/30/22 11:13 AM) Apical Heart Rate [60-100 bpm] 72 bpm (03/30/22 11:19 AM) 72 bpm (03/30/22 11:13 AM) Peripheral Pulse Rate [60-100 bpm] 81 bpm (03/30/22 1:48 PM) 73 bpm (03/30/22 1:41 PM) Respiratory Rate [12-24 br/min] 16 br/min (03/30/22 11:19 AM) Blood Pressure [90-140/60-90 mmHg] 100/46mmHg (03/30/22 1:48 PM) 118/50mmHg (03/30/22 1:41 PM) 108/70mmHg (03/30/22 11:19 AM) Mean Arterial Pressure, Cuff [65-140 mmHg] 64 mmHg *LOW* (03/30/22 1:48 PM) 73 mmHg (03/30/22 1:41 PM) 83 mmHg (03/30/22 11:13 AM) Mean Arterial Pressure Cuff 60 mmHg (03/30/22 1:48 PM) 68 mmHg (03/30/22 1:41 PM) Blood Pressure Location Right arm (03/30/22 11:13 AM) Blood Pressure Method Automatic (03/30/22 11:13 AM) Weight 65.000 kg (03/29/22 1:11 PM) Weight Dosing 65.000 kg (03/29/22 1:11 PM) Height 152.000 cm (03/29/22 1:11 PM) Height/Length Dosing 152.000 cm (03/29/22 1:11 PM) Social History Social History Type Response Tobacco Former tobacco user Tobacco Use:. Started age 56.0 Years. Sex Implantable Device List Procedure Provider Procedure Date Device Type Site Extracapsular cataract remov al with insertion of intraocular lens prosthesis (1 stage procedure), manual or mechanical technique (eg, irrigation and aspiration or phacoemulsification); without endoscopic cyclophotocoagulation Abelardo Graham MD 03/30/22 Non Biological Eye L Device Identifier Serial Number Lot or Batch Number Manufacturing Date Expiration Date Distinct Identification Code MRI Safety Implantable Status Assigning Authority Unknown [id number] Unknown Unknown 11/09/24 Unknown Unknown Active Unknown Procedure Provider Procedure Date Device Type Site Extracapsular cataract remov al with insertion of intraocular lens prosthesis (1 stage procedure), manual or mechanical technique (eg, irrigation and aspiration or phacoemulsification); without endoscopic cyclophotocoagulation Abelardo Graham MD 03/16/22 Non Biological Eye R Device Identifier Serial Number Lot or Batch Number Manufacturing Date Expiration Date Distinct Identification Code MRI Safety Implantable Status Assigning Authority Unknown [id number] Unknown Unknown 09/17/24 Unknown Unknown Active Unknown Discharge instructions * Event Display: Discharge Instructions Procedure note * Juan Alberto Delgadillo: SIGN, VERIFY, PERFORM Event Display: Procedure Note Authored Date: [id number] Patient: RAFAELA GARCIA Age: 56 years Sex: Female : 1965 Associated Diagnoses: None Author: Juan Alberto Delgadillo Preoperative Information Procedure/ Case: right cataract and IOL Surgeon scheduled: ABELARDO GRAHAM M.D. NPO status: No solids since midnight, No liquids within 2 hours. Anesthesia history: Patient's history: Negative. Family's history: Negative. Review of Systems Ear/Nose/Mouth/Throat: Negative. Respiratory: Negative. Cardiovascular: Negative. Gastrointestinal: autoimmune hepatitis, hepatic fibrosis. Genitourinary: Negative. Endocrine: vit B def. Musculoskeletal: Negative. Integumentary: Negative. Neurologic: lyme disease. Health Status Allergies: Allergies (4) Active Severity Reaction Lovenox Severe Bleeding from mouth Imitrex Mild Muscle spasm NSAIDs Mild Liver disease Tylenol Mild Liver disease , Nonallergic Reactions (All) Severe Lovenox- Bleeding from mouth. Mild Imitrex- Muscle spasm. NSAIDs- Liver disease. Tylenol- Liver disease. Current medications: (Selected) Inpatient Medications Ordered midazolam/ketamine/ondansetron: 1 tab, SL, PREOP prednisolone/moxifloxacin/nepafenac 1%-0.5%-0.1% ophthalmic suspension: 1 drops, OPHTH, As Directed tropicamide-phenylephrine 1%-2.5% ophthalmic solution: 1 drops, OPHTH, Cleaner Touch Up Worker Documented Medications Documented BuPROPion (Eqv-Wellbutrin SR) 150 mg/12 hours oral tablet, extended release: Take 1 tablet by mouthonce daily for 3 days; then increase to 1 tablet twice daily. azaTHIOprine 75 mg oral tablet: 75 mg = 1 tab, Oral, Daily, 30 tab, 0 Refill(s) calcium citrate 950 mg (200 mg elemental calcium) oral tablet: Take 1 tablet by mouth 2 times daily. ergocalciferol 1.25 mg (50,000 intl units) oral capsule: Take 1 capsule by mouth once a week. hydroxychloroquine 200 mg oral tablet: TAKE 1 TABLET BY MOUTH TWICE DAILY. mycophenolate mofetil 500 mg oral tablet: Take 2 tablets by mouth 2 times daily. predniSONE 5 mg oral tablet: TAKE 1 TABLET BY MOUTH ONCE DAILY prednisolone/moxifloxacin/nepafenac 1%-0.5%-0.1% ophthalmic suspension: 1 drops, OPHTH, As Directed, 0 Refill(s), Medications (3) Active Scheduled: (3) Fgezcuyum-Scakyvrw-Ozhkhruypvo Tab [LTTL] 1 tab, SL, PREOP Fyeuxafsg-Enuwhasz-Uxcakrozl Ophth Soln [LTTL] 1 drops, OPHTH, As Directed Tropicamide-Phenylephrine 1%-2.5% Opht [LTTL] 1 drops, OPHTH, Cleaner Touch Up Worker Continuous: (0) PRN: (0) Problem list: All Problems Anemia / 398184271 / Confirmed Autoimmune hepatitis / 6080039310 / Confirmed B12 deficiency monitoring / 080562621 / Confirmed Constipation / 39126563 / Confirmed Fibrosis of liver / 631434480 / Confirmed Inflammatory arthritis / 4212133756 / Confirmed Lyme disease / 02352408 / Confirmed Osteoporosis / 250257475 / Confirmed, Active Problems (8) Anemia Autoimmune hepatitis B12 deficiency monitoring Constipation Fibrosis of liver Inflammatory arthritis Lyme disease Osteoporosis Histories Family History: No family history items have been selected or recorded. Procedure history: Cataract Extraction with IOL (Right) on 03/16/2022 at 56 Years. Comments: 03/16/2022 12:17 Gilberto Christiansen auto-populated from documented surgical case Total hysterectomy (311404854). Gastric bypass (3496215211). Tonsillectomy and adenoidectomy (565807734). Laparoscopy (106946023). Hernia repair (19087804). Social History Social & Psychosocial Habits Alcohol 03/14/2022 Use: Past Substance Use 03/14/2022 Substance use: Never Tobacco 03/14/2022 Smoking tobacco use: Former tobacco user Started [age]: 56.0 Years Electronic Cigarette/Vaping 03/14/2022 Electronic Cigarette Use: Never . Physical Examination Intake and Output Vital Signs (last 24 hrs) Last Charted Heart Rate Apical 72 bpm (MAR 30 11:19) SBP 108 mmHg (MAR 30 11:19) DBP 70 mmHg (MAR 30 11:19) Weight 65.000 kg (MAR 29 13:11) Height 152.00 cm (MAR 29 13:11) Vital Signs 03/30/2022 11:19 EST Temperature Temporal Artery 37.1 Deg C Apical Heart Rate 72 bpm Respiratory Rate 16 br/min Systolic Blood Pressure 108 mmHg Diastolic Blood Pressure 70 mmHg 03/30/2022 11:13 EST Temperature Temporal Artery 37.1 Deg C Temperature Temporal Artery (DegF) 98.78 Deg F Apical Heart Rate 72 bpm Systolic Blood Pressure 108 mmHg Diastolic Blood Pressure 70 mmHg Mean Arterial Pressure, Cuff 83 mmHg Blood Pressure Location Right arm Blood Pressure Method Automatic Measurements from flowsheet : Measurements 03/29/2022 13:11 EST Weight Measured 65.000 kg Weight Dosing 65.000 kg Height/Length Measured 152.000 cm Height/Length Dosing 152.000 cm Pain assessment: Pain Assessment 03/30/2022 11:19 EST Preferred Pain Tool Numeric rating scale Numeric Rating Pain Scale 4 Primary Pain Location Generalized Primary Pain Laterality Bilateral Primary Pain Time Pattern Chronic . General: Alert and oriented. Airway: Normal temporomandibular joint mobility, Nares patent, Normal mouth, No damage to dentition, Normal throat, Normal neck range of motion, Trachea midline. Mallampati classification: II (soft palate, fauces, uvula visible). Head: Normocephalic. Neck: Supple. Respiratory: Lungs are clear to auscultation. Cardiovascular: Normal rate. Gastrointestinal: Soft. Musculoskeletal Normal range of motion. Integumentary: Intact. Neurologic: Normal sensory. Review / Management Results review: No qualifying data available . Assessment and Plan [place] [employer] Anesthesiologists (ASA) physical status classification: Class III. Anesthetic Preoperative Plan Premedication: x1 MKO SL . Anesthetic technique: Monitored anesthesia care. Maintenance airway: spontaneous ventilation. Postoperative destination: PACU. Postoperative pain management: Per surgeon. Anesthesia plan discussed with: patient. Risks discussed: nausea, vomiting, headache, sore throat, dental injury, hypotension, allergic reaction, serious complications. Anesthesia consent: consented. Plan discussed with: AIRPORT REFUELING HANDLER. Anesthesia clearance: Cleared on 03/30/2022 11:45:00, by Juan Alberto Delgadillo. Electronically Signed on 03/30/22 11:45 AM Juan Alberto Delgadillo History and physical note * Event Display: History and Physical Update Patient Care team information Personnel Name: DANISH GONZALEZ Address: Address: [address] [place] [id number] [place] [address]
[2023-01-27 17:01] LABS: ALT 40 U/L (14-59); AST 31 U/L (15-37); Albumin 3.8 g/dL (3.4-5.0); Alkaline Phosphatase 85 U/L (46-116); Bilirubin, Direct 0.1 mg/dL (0.0-0.2); Bilirubin, Total 0.3 mg/dL (0.2-1.0)
== END 2023-01-27 01:49 | disposition home or self-care (01) ==
PROVIDERS: PCP Nurse Practitioner Family; Visit Provider Student in an Organized Health Care Education/Training Program
DX: K75.4 Autoimmune hepatitis (principal)
CPT/HCPCS: 36415; 80076

== ENCOUNTER → 2023-05-22 04:18 | Outpatient (CLI) | payer OTHER, SELFPAY ==
--- NOTE | 2023-05-22 15:31 | DI.RAD_ITS ---
Exam(s) XR LUMBAR SPINE COMPLETE EXAM: XR LUMBAR SPINE COMPLETE CLINICAL HISTORY: LOW BACK PAIN, M54.50. TECHNIQUE: 2D digital imaging was performed of the lumbar spine. Five images were obtained. AP, la teral, right oblique, left oblique and L5-S1 spot views were obtained. COMPARISON: CR XR DEXA BONE DENSITY W/WO TOMMIE from 09/10/2021 FINDINGS: BONES: No fracture or destructive lesion. Endplate osteophytes are seen at T12-L1, L1-L2 and L5-S1. M ild degenerative changes of the facets are seen at L5-S1. A right total hip replacement is partially imaged. DISKS: There is disc space narrowing at T12-L1, L1-L2 and L5-S1. ALIGNMENT: Lumbar spinal alignment is within normal limits. No spondylolysis or spondylolisthesis. SOFT TISSUE: Vascular calcifications are present. There are surgical clips in the abdomen. IMPRESSION: Moderate degenerative changes are seen in the spine. DATA REPOSITORY: RADIATION DOSE DELIVERED:
== END ==
PROVIDERS: PCP Nurse Practitioner Family; Visit Provider Nurse Practitioner Family
DX: M54.59 Other low back pain (principal); M51.37 Other intervertebral disc degeneration, lumbosacral region; M47.817 Spondylosis without myelopathy or radiculopathy, lumbosacral region; Z96.641 Presence of right artificial hip joint
CPT/HCPCS: 72110

== ENCOUNTER 2023-06-29 15:24 | Outpatient (CLI) | payer OTHER, SELFPAY ==
--- NOTE | 2023-06-29 10:15 | DI.RAD_ITS ---
Exam(s) XR HIP LT COMPLETE AP PELVIS EXAM: XR HIP LT COMPLETE AP PELVIS CLINICAL HISTORY: LEFT HIP PAIN. TECHNIQUE: 2D digital imaging was performed of the left hip. Two views were obtained. AP pelvis an d lateral left hip views were obtained. COMPARISON: CR XR HIP RT COMPLETE AP PELVIS from 12/13/2021 CR XR HIP RT AP LAT ONLY from 12/05/2022 FINDINGS: BONES: No acute fracture is present. No bony destructive lesion is seen. JOINTS: No dislocation present. There is mild spurring and joint space narrowing of the left hip. Th ere is a well corticated osseous density adjacent to the superior acetabulum which is chronic. Note is made of a right total hip replacement. SOFT TISSUE: Surgical clips are seen in the pelvis. IMPRESSION: Mild degenerative changes in the left hip. DATA REPOSITORY: RADIATION DOSE DELIVERED:
== END 2023-06-29 15:25 | disposition home or self-care (01) ==
LOC: DIORS 15:29
PROVIDERS: PCP Nurse Practitioner Family; Visit Provider Physician Assistant
DX: M25.552 Pain in left hip (principal)
CPT/HCPCS: 73502

== ENCOUNTER 2023-10-10 08:52 | Outpatient (REF) | payer OTHER, SELFPAY ==
[2023-10-10 09:47] LABS: Bilirubin Negative (Negative); Blood Trace-intact (Negative); Clarity Clear (Clear); Glucose Negative (Negative); Ketones Negative (Negative); Leukocyte Esterase Negative (Negative); Nitrite Negative (Negative); Specific Gravity <= 1.005 (1.005-1.025); Urobilinogen 0.2 mg/dL (Up to 0.2); pH 5.5 (5-8)
[2023-10-10 09:54] LABS: Bacteria Negative HPF (Negative); C & S Indicated? No; Casts Negative LPF (Negative); Crystals Negative HPF (Negative); Epithelial Cells Rare HPF (Negative); Mucus Negative (Negative); RBC 0-2 HPF (0-2); WBC Negative HPF (0-5)
== END 2023-10-10 08:53 | disposition home or self-care (01) ==
LOC: LBN 08:52
PROVIDERS: PCP Nurse Practitioner Family; Visit Provider Nurse Practitioner Gerontology
DX: R31.21 Asymptomatic microscopic hematuria (principal)
CPT/HCPCS: 81003; 81015

== ENCOUNTER 2023-11-03 13:32 | Outpatient (CLI) | payer OTHER, SELFPAY ==
--- NOTE | 2023-11-24 10:04 | W.CARDEVENT ---
Date of service: 11/24/23 Time of Service: 10:04 Cardiac Event Recorder Referring Provider:: Deborah Rao Indications:: Palpitations Cardiac Event Note: This is a cardiac event monitor. Patient was monitored for 13 days and 18 hours. Rhythm throughout was sinus with an average heart rate of 80. Minimum was 53, maximum 134 There were rare isolated ventricular ectopic beats. There was 1 slow ventricular triplet There were rare atrial premature beats. There were several self-limited atrial runs. The longest of these was 5 beats in duration. All were asymptomatic. There was no atrial fibrillation, no high-grade AV block, no pauses greater than 3 seconds Symptoms were reported which had no correlation to any dysrhythmia
== END 2023-11-03 13:33 | disposition home or self-care (01) ==
PROVIDERS: PCP Nurse Practitioner Family; Visit Provider Nurse Practitioner Family
DX: I49.1 Atrial premature depolarization

== ENCOUNTER 2023-11-10 01:08 | Outpatient (CLI) | payer OTHER, SELFPAY ==
[2023-11-10 08:14] LABS: HCT 41.6 % (36.0-46.0); HGB 13.3 g/dL (11.2-15.7); MCH 29.8 pg (27.0-33.0); MCV 93 fL (80-95); MPV 10.4 fL (8.0-11.0); Platelet Count 177 10^3/uL (130-400); RBC 4.46 10^6/uL (3.93-5.22); RDW 13.2 % (11.7-14.6); RDW-SD 45.6 fL; WBC 3.87 10^3/uL (4.4-10.8)
[2023-11-10 08:46] LABS: Hemoglobin A1C 5.5 % (<5.7)
[2023-11-10 08:50] LABS: ALT 35 U/L (14-59); AST 24 U/L (15-37); Albumin 3.6 g/dL (3.4-5.0); Alkaline Phosphatase 95 U/L (46-116); Anion Gap 5.7 mmol/L (3-11); BUN 16 mg/dL (7-18); Bilirubin, Total 0.29 mg/dL (0.2-1.0); CO2 29.3 mmol/L (21.0-32.0); Calculated LDL 103 mg/dL (<100); Chloride 107 mmol/L (98-107); Cholesterol 173 mg/dL (<200); Glucose 94 mg/dL (74-106); HDL Cholesterol 52 mg/dL (40-60); Potassium 4.1 mmol/L (3.5-5.1); Sodium 142 mmol/L (136-145); TSH (W/Ref FT4) 2.86 uIU/mL (0.36-3.74); Total Protein 7.1 g/dL (6.4-8.2); Triglyceride 91 mg/dL (<150)
== END 2023-11-10 01:09 | disposition home or self-care (01) ==
PROVIDERS: PCP Nurse Practitioner Family; Visit Provider Nurse Practitioner Family
DX: R41.0 Disorientation, unspecified (principal); R20.0 Anesthesia of skin; R00.2 Palpitations
CPT/HCPCS: 36415; 80053; 80061; 85027; 83036; 84443

== ENCOUNTER 2024-02-23 01:34 | Outpatient (CLI) | payer OTHER, SELFPAY ==
[2024-02-23 12:17] LABS: Bilirubin Negative (Negative); Blood Trace-intact (Negative); Clarity Clear (Clear); Glucose Negative (Negative); Ketones Negative (Negative); Leukocyte Esterase Trace (Negative); Nitrite Negative (Negative); Specific Gravity 1.025 (1.005-1.025); Urobilinogen 0.2 mg/dL (Up to 0.2); pH 5.5 (5-8)
[2024-02-23 12:26] LABS: Prothrombin Time 10.3 sec (9.1-11.1)
[2024-02-23 12:32] LABS: Bacteria Moderate HPF (Negative); C & S Indicated? C&S Done As Ordered; Casts Negative LPF (Negative); Crystals Negative HPF (Negative); Epithelial Cells Few HPF (Negative); Mucus Negative (Negative)
== END 2024-02-23 01:35 | disposition home or self-care (01) ==
PROVIDERS: Nurse Practitioner Gerontology; PCP Nurse Practitioner Family; Visit Provider Student in an Organized Health Care Education/Training Program
DX: R82.90 Unspecified abnormal findings in urine (principal); K75.4 Autoimmune hepatitis
CPT/HCPCS: 36415; 87077; 81003; 81015; 85610; 87086; 87186

== ENCOUNTER 2024-03-14 06:28 | Emergency (ER) | payer OTHER, SELFPAY ==
[2024-03-14 06:31] VITALS: BP 152/69; PULSE 88; RESP 18; TEMP 37.3; O2SAT 100
--- NOTE | 2024-03-14 06:34 | W.ED.GENAD ---
Discharge Plan Disposition Patient Disposition: Home Condition: Good Discharge Details Clinical Impression: URI (upper respiratory infection) Primary Care Provider: Deborah Rao ED Provider: Channing Mederos Meds and New Rx's Prescriptions: Continued mycophenolate mofetil [CellCept] 500 mg tablet 500 mg PO BID prednisone 5 mg tablet 5 mg PO DAILY pregabalin [Lyrica] 50 mg capsule 50 mg PO BID Qty: 60 1RF pregabalin 75 mg capsule 75 mg PO QHS Qty: 90 3RF cyclobenzaprine 10 mg tablet 10 mg PO HS PRN (Reason: muscle spasm) Qty: 30 3RF bupropion HCl 150 mg tablet sustained-release 12 hr 150 mg PO BID Qty: 60 3RF cephalexin 500 mg tablet 500 mg PO TID Qty: 21 0RF Rx Instructions: Take as directed to treat UTI azathioprine 50 MG tablet 50 mg PO DAILY hydroxychloroquine 200 MG tablet 200 mg PO BID Discharge Instructions Instructions: Upper Respiratory Infection ED Additional Instructions: You were seen for URI symptoms, mostly sinus congestion/pressure. Your nasal swab was negative. Recommend using Mucinex-D (or generic equivalent) for symptoms. Rest, hydrate, humidifier in your room at night. Follow up with PCP next week. Return to ED for mental status changes, chest pain, shortness of breath, severe worsening headache, other concerns. Referrals: Deborah Rao APRN [Primary Care Provider] - [facility] General Mode of arrival: ambulatory. Date/Time Provider Initiated Documentation: 03/14/24 06:34. Limitations to Documentation: no limitations. Information obtained by: patient and RN notes reviewed. HPI Narrative: Patient presenting to ED with complaints of earache, sinus pressure, cough, congestion for the last 2 days. She had fever at home. Denies any shortness of breath. Little bit of chest discomfort with coughing only. No nausea, vomiting, abdominal pain, diarrhea. Has not had COVID or flu vaccine this fall. Has not taken anything [id number]-[id number] at this point. Cannot take acetaminophen due to autoimmune hepatitis and avoids nonsteroidals unless necessary due to previous bypass surgery. She is on immunosuppressive drugs for her autoimmune diseases. Related Data Home Medications ?Medication ?Instructions ?Recorded ?Confirmed azathioprine 50 mg tablet 50 mg PO DAILY 01/14/13 03/14/24 hydroxychloroquine 200 mg tablet 200 mg PO BID 08/19/14 03/14/24 mycophenolate mofetil 500 mg 500 mg PO BID 10/25/23 03/14/24 tablet (CellCept) prednisone 5 mg tablet 5 mg PO DAILY 10/25/23 03/14/24 pregabalin 50 mg capsule (Lyrica) 50 mg PO BID #60 caps 10/27/23 03/14/24 pregabalin 75 mg capsule 75 mg PO QHS #90 caps 10/27/23 03/14/24 cyclobenzaprine 10 mg tablet 10 mg PO HS PRN muscle spasm #30 11/29/23 03/14/24 tabs bupropion HCl 150 mg tablet,12 hr 150 mg PO BID #60 tabs 12/22/23 03/14/24 sustained-release cephalexin 500 mg tablet 500 mg PO TID #21 tabs 03/04/24 03/14/24 Previous Rx's ?Medication ?Instructions ?Recorded pregabalin 50 mg capsule (Lyrica) 50 mg PO BID #60 caps 10/27/23 pregabalin 75 mg capsule 75 mg PO QHS #90 caps 10/27/23 cyclobenzaprine 10 mg tablet 10 mg PO HS PRN muscle spasm #30 11/29/23 tabs bupropion HCl 150 mg tablet,12 hr 150 mg PO BID #60 tabs 12/22/23 sustained-release cephalexin 500 mg tablet 500 mg PO TID #21 tabs 03/04/24 Allergies Allergy/AdvReac Type Severity Reaction Status Date / Time sumatriptan succinate (From Allergy Unknown Verified 03/14/24 06:34 Imitrex) enoxaparin sodium (From AdvReac Severe severe Verified 03/14/24 06:34 Lovenox) bleeding acetaminophen (From Tylenol) AdvReac hx Verified 03/14/24 06:34 hepeatits e NSAIDS (Non-Steroidal AdvReac Unknown Verified 03/14/24 06:34 Anti-Inflamma sumatriptan (From Imitrex) AdvReac muscle Verified 03/14/24 06:34 spasms calcium citrate Allergy Intermediate Nausea Uncoded 03/14/24 06:34 diclofenac subicronized Allergy Unknown unkown Uncoded 03/14/24 06:34 General Stated Complaint: RespSymp MANDA: 4 Review of Systems Narrative: Per HPI Exam Narrative Exam Narrative: Const: WDWN female in NAD. VS per triage. HEENT: NC/AT. Normal facial exam. TMs are clear bilaterally. Oropharynx and posterior oropharynx is normal. Neck: Supple. Trachea midline. Lungs: Normal respiratory effort. Lungs are clear. Cor: RRR without murmur. Good radial pulses. Neuro: A+O x 3. Normal speech, mentation, gait. Cranial nerves II - XII grossly intact. No gross motor or sensory deficit. Course Vital Signs Vital signs: Vital Signs Temperature 99.2 F 03/14/24 06:31 Pulse 88 03/14/24 06:31 Respiratory Rate 18 03/14/24 06:31 Blood Pressure 152/69 H 03/14/24 06:31 Pulse Oximetry 100 03/14/24 06:31 Temperature 99.2 F 03/14/24 06:31 Temperature Source Temporal Artery Scan 03/14/24 06:31 Pulse 88 03/14/24 06:31 Respiratory Rate 18 03/14/24 06:31 Blood Pressure 152/69 H 03/14/24 06:31 Blood Pressure Position Sitting 03/14/24 06:31 Pulse Oximetry 100 03/14/24 06:31 Oxygen Delivery Method Room Air 03/14/24 06:31 Oxygen Flow Rate 0 03/14/24 06:31 Pain Level 8 03/14/24 06:31 Medical Decision Making Medical Records Medical records narrative: Patient presenting with upper respiratory symptoms most likely consistent with viral illness. She looks well overall with O2 saturations of 100% on room air and clear lungs. Will treat with guaifenesin and pseudoephedrine as her chief complaint is head congestion/sinus pressure. Will obtain Fluvid swab given her immunosuppression and lack of immunizations this fall. Patient's swab is negative. Will discharge home, recommend getting Mucinex-D for symptoms. Follow up with PCP next week. Return precautions provided. Lab Data Lab results reviewed: Yes I reviewed the patient's lab results. Lab results narrative: see [facility] All Active Problems (Updated 03/14/24 @ 07:45 by Channing Mederos MD) URI (upper respiratory infection) (Acute) Constipation (Acute) History of depression (Acute) Greater trochanteric pain syndrome (Acute) Lumbar radiculopathy (Acute) Facet arthropathy, lumbar (Acute) Degenerative disc disease, lumbar (Acute) Disorientated (Acute) Numbness of right hand (Acute) Pain of left hip joint (Acute) Irritability and anger (Acute) Bunion (Acute) Hx of bariatric surgery (Acute) History of colon polyps (Acute) Feeling irritable (Acute) Senile osteoporosis (Acute) Spasm (Acute) Low back pain (Acute) Pain in thoracic spine (Acute) Joint pain (Acute) Arthritis (Acute) Follicular cyst of skin and subcutaneous tissue (Acute) Blood in urine (Acute) Cirrhosis of liver (Acute) Autoimmune hepatitis (Acute) Peritoneal adhesion (Acute) IBS (irritable bowel syndrome) (Chronic) Slow transit constipation (Acute) Incisional hernia (Acute) Seasonal allergic rhinitis (Acute) Esophageal varices without bleeding (Acute) Psychophysiologic insomnia (Acute) Nicotine dependence (Acute) Anemia (Chronic) Vitamin B deficiency (Acute) Pain of left sacroiliac joint (Acute) Iliotibial band syndrome of left side (Acute) Trochanteric bursitis, left hip (Acute) Osteoarthritis of left hip (Acute) Left hip pain (Acute) Asymptomatic microscopic hematuria (Acute) Medical History TOBACCO USE DISORD SURGICALLY INDUCED MENOPAUSE Obesity Intertrigo Hyperlipidemia H/O HTN H/O CERVICAL CA H/O ANXIETY/DEPRESSION AUTOIMMUNE HEPATIT ARTHRITIS NOS Surgical History Hx of colonoscopy 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) Hx of cataract removal with insertion of prosthetic lens Hx of hernia repair Sebaceous cyst (~10/2022) head and neck Tonsillectomy and adenoidectomy Oophrectomy, Right Oophrectomy, Left Abdominal hysterectomy Gastric Bypass BY KYLE REGAN MD IN 2004 Cholecystectomy Appendectomy Family History (Updated 10/18/23 @ 10:24 by Thu Hsu) Son Alcohol use disorder Substance use disorder Anxiety Grandson Anxiety ADHD Granddaughter ADHD Anxiety Aunt Bone cancer Mother Depression Diabetes Hypertension Social History Smoking/Tobacco Use Status: Former Tobacco Use tobacco type: cigarettes Quit Date: 07/21/21 Tobacco: How many years used: 25 Second Hand Exposure: No Smoking risk assessment performed?: Yes Alcohol Intake: former Drug use: Never Substance use type: does not use Adopted: No Caregiver/Support person: No Foster care: No Household members: significant other Housing: house Number of Children: 2 number of grandchildren: 8 Communication Needs: None Education Level: high school Do you need help understanding health information?: Rarely 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 Pets and animals: Yes (1 dog, 1 cat, fish) Pets and animals: cat(s), dog(s), fish and other Details: 15 chickens, 1 rooster Sexually active: Yes Do you think of yourself as: straight/heterosexual Current gender identity: female What is your relationship status?: living with partner How often do you talk on the phone with friends or family?: once per week How often do you get together with friends or relatives?: once per week How often do you attend episcopal or gnosticist services?: 1-3 times per year Do you belong to any clubs or organized social groups?: no Panel score (0-1 are the most socially isolated patients): 1 What type of physical activity do you participate in: additional Details: Walking/Cooking/Cleaning/Laundry/Push parking analyst. Duration: > 90 minutes/day Frequency: daily Peggy/Uatsdin: Yazidism Special peggy needs: No Seatbelt use: always Helmet use: Yes Drive intox or ride w/intox cdl flatbed truck driver: No Do you feel safe at home: Yes Do you feel safe in your relationship?: Yes
[2024-03-14] MEDS: guaiFENesin 200 MG/10 ML CUP PO (06:54)
[2024-03-14 07:39] LABS: COVID-19 PCR Negative (Negative); Influenza A PCR Negative (Negative); Influenza B PCR Negative (Negative); RSV PCR Negative (Negative)
[2024-03-14 07:40] LABS: Source Nasopharynx
[2024-03-14 07:57] VITALS: BP 137/85; PULSE 88; RESP 18; O2SAT 99
== END 2024-03-14 07:58 | disposition home or self-care (01) ==
PROVIDERS: Emergency Provider Emergency Medicine; PCP Nurse Practitioner Family
DX: J06.9 Acute upper respiratory infection, unspecified (principal); I10 Essential (primary) hypertension; E78.5 Hyperlipidemia, unspecified; K75.4 Autoimmune hepatitis; Z79.69 Long term (current) use of other immunomodulators and immunosuppressants; Z98.84 Bariatric surgery status; Z87.891 Personal history of nicotine dependence
CPT/HCPCS: 87637; 99283; J3490

== ENCOUNTER 2024-04-05 00:54 | Outpatient (CLI) | payer OTHER, SELFPAY ==
[2024-04-05 11:13] LABS: ALT 35 U/L (14-59); AST 27 U/L (15-37); Albumin 3.6 g/dL (3.4-5.0); Alkaline Phosphatase 95 U/L (46-116); Bilirubin, Direct 0.1 mg/dL (0.0-0.2); Bilirubin, Total 0.34 mg/dL (0.2-1.0)
== END 2024-04-05 00:55 | disposition home or self-care (01) ==
PROVIDERS: PCP Nurse Practitioner Family; Visit Provider Student in an Organized Health Care Education/Training Program
DX: K75.4 Autoimmune hepatitis (principal)
CPT/HCPCS: 36415; 80076

== ENCOUNTER 2024-05-31 00:52 | Outpatient (CLI) | payer OTHER, SELFPAY ==
[2024-05-31 12:21] LABS: ALT 46 U/L (14-59); AST 37 U/L (15-37); Albumin 3.8 g/dL (3.4-5.0); Alkaline Phosphatase 96 U/L (46-116); Bilirubin, Direct 0.1 mg/dL (0.0-0.2); Bilirubin, Total 0.5 mg/dL (0.2-1.0); Total Protein 7.5 g/dL (6.4-8.2)
[2024-06-06 16:13] LABS: 6-Methylmercaptopurine ribosid 5.74 nmol/mL/h (5.04-9.57)
== END 2024-05-31 00:53 | disposition home or self-care (01) ==
PROVIDERS: PCP Nurse Practitioner Family; Visit Provider Student in an Organized Health Care Education/Training Program
DX: K75.4 Autoimmune hepatitis (principal)
CPT/HCPCS: 36415; 80076; 82657

== ENCOUNTER 2024-07-26 01:03 | Outpatient (CLI) | payer OTHER, SELFPAY ==
[2024-07-26 08:54] LABS: ALT 39 U/L (14-59); AST 40 U/L (15-37); Albumin 3.4 g/dL (3.4-5.0); Alkaline Phosphatase 92 U/L (46-116); Bilirubin, Total 0.4 mg/dL (0.2-1.0)
[2024-07-26 09:02] LABS: Bilirubin, Direct 0.1 mg/dL (0.0-0.2)
[2024-08-01 17:48] LABS: 6-Thioguanine Nucleotides 362 (235 - 450)
== END 2024-07-26 01:04 | disposition home or self-care (01) ==
PROVIDERS: PCP Nurse Practitioner Family; Visit Provider Student in an Organized Health Care Education/Training Program
DX: K75.4 Autoimmune hepatitis (principal)
CPT/HCPCS: 36415; 80076; 80299

== ENCOUNTER 2024-07-29 13:59 | Outpatient (CLI) | payer OTHER, SELFPAY ==
--- NOTE | 2024-07-29 14:49 | DI.RAD_ITS ---
Exam(s) XR TMJ BL EXAM: XR TMJ BL CLINICAL HISTORY: R68.84, M26.649,M81.0; RIGHT SIDE painful x3w, Arthritis unspecified TMJ. TECHNIQUE: 2D digital imaging was performed. Seven images were obtained. COMPARISON: No exams were available for comparison FINDINGS: BONES: No evidence of fracture. JOINTS: No evidence of temporomandibular joint dislocation or subluxation. The temporomandibular kellen nts are well maintained. SOFT TISSUES: Unremarkable. IMPRESSION: Unremarkable radiographs of the mandible. DATA REPOSITORY: RADIATION DOSE DELIVERED:
== END 2024-07-29 14:19 ==
LOC: DI 14:00
PROVIDERS: PCP Nurse Practitioner Family; Visit Provider Nurse Practitioner Adult Health
DX: R68.84 Jaw pain (principal); M81.0 Age-related osteoporosis without current pathological fracture
CPT/HCPCS: 70330

== ENCOUNTER 2024-08-20 03:58 | Outpatient (CLI) | payer OTHER, SELFPAY ==
[2024-08-20 16:40] LABS: Abs Immature Grans 0.01 10^3/uL (0.0-0.06); HCT 39.4 % (36.0-46.0); HGB 13.3 g/dL (11.2-15.7); Immature Grans % 0.2 %; MCH 31.7 pg (27.0-33.0); MCHC 33.8 % (32.0-36.0); MCV 94 fL (80-95); MPV 10.6 fL (8.0-11.0); Platelet Count 226 10^3/uL (130-400); RBC 4.19 10^6/uL (3.93-5.22); RDW 13.8 % (11.7-14.6); RDW-SD 47.4 fL; WBC 4.71 10^3/uL (4.4-10.8)
[2024-08-20 17:32] LABS: ALT 45 U/L (14-59); AST 37 U/L (15-37); Albumin 3.8 g/dL (3.4-5.0); Alkaline Phosphatase 100 U/L (46-116); Anion Gap 7.4 mmol/L (3-11); BUN 11 mg/dL (7-18); Bilirubin, Total 0.4 mg/dL (0.2-1.0); CO2 30.6 mmol/L (21.0-32.0); Calcium 8.7 mg/dL (8.5-10.1); Chloride 103 mmol/L (98-107); Estimated GFR 73.19 (mL/min/1.73m2); Glucose 83 mg/dL (74-106); Potassium 4.1 mmol/L (3.5-5.1); Sodium 141 mmol/L (136-145); Total Protein 7.3 g/dL (6.4-8.2)
== END 2024-08-20 03:59 | disposition home or self-care (01) ==
PROVIDERS: PCP Nurse Practitioner Family; Visit Provider Student in an Organized Health Care Education/Training Program
DX: K74.60 Unspecified cirrhosis of liver (principal)
CPT/HCPCS: 36415; 80053; 82784; 82105; 85025

== ENCOUNTER 2024-10-18 01:11 | Outpatient (CLI) | payer OTHER, SELFPAY ==
[2024-10-18 11:16] LABS: ALT 40 U/L (14-59); AST 35 U/L (15-37); Albumin 3.7 g/dL (3.4-5.0); Alkaline Phosphatase 82 U/L (46-116); Bilirubin, Direct 0.1 mg/dL (0.0-0.2); Bilirubin, Total 0.5 mg/dL (0.2-1.0); Total Protein 7.2 g/dL (6.4-8.2)
[2024-10-23 09:43] LABS: 6-Thioguanine Nucleotides 308 (235 - 450)
== END 2024-10-18 01:12 | disposition home or self-care (01) ==
PROVIDERS: PCP Nurse Practitioner Family; Visit Provider Student in an Organized Health Care Education/Training Program
DX: K75.4 Autoimmune hepatitis (principal)
CPT/HCPCS: 36415; 80076; 80299

== ENCOUNTER 2024-12-06 07:43 | Emergency (ER) | payer OTHER, SELFPAY ==
[2024-12-06 07:47] VITALS: BP 123/70; PULSE 86; RESP 18; TEMP 37; O2SAT 100
--- NOTE | 2024-12-06 08:24 | W.ED.GENAD ---
Discharge Plan Disposition Patient Disposition: Home Condition: Stable Discharge Details Clinical Impression: Skin lesion of hand Primary Care Provider: Deborah Rao ED Provider: Blaire Frye Home Meds and New Rx's Prescriptions: No Action mycophenolate mofetil [CellCept] 500 mg tablet 500 mg PO BID prednisone 5 mg tablet 5 mg PO DAILY bupropion HCl 150 mg tablet sustained-release 12 hr 150 mg PO BID Qty: 60 3RF cyclobenzaprine 10 mg tablet 10 mg PO HS PRN (Reason: muscle spasm) Qty: 30 3RF pregabalin [Lyrica] 50 mg capsule 50 mg PO DAILY Qty: 90 3RF diclofenac sodium [Solaraze] 3 % gel 1 applic topical BID Qty: 100 3RF pregabalin 75 mg capsule 75 mg PO QHS Qty: 90 3RF azathioprine 50 MG tablet 50 mg PO DAILY hydroxychloroquine 200 MG tablet 200 mg PO BID Discharge Instructions Instructions: Skin Biopsy Additional Instructions: You were seen in the emergency department today for evaluation of a lesion on your hand. In our department a full physical examination performed, and I am concerned that this lesion may represent a potential cancerous growth given its location on sun exposed skin and the duration of time that you have had it. It does not feel like a fluid-filled boil and would not benefit from lancing or any other further attempts to unroof it. I do recommend that you follow-up with a car rider as this will require a biopsy, and I have placed a referral to the [facility] dermatology team. Please follow-up with your primary care provider in the next few days to discuss this visit and any symptoms that change, worsen, or persist. Thank you for allowing us to be part of your care. Referrals: DERMATOLOGY,[facility] [place] [OTHER, Dermatology] HPI General Mode of arrival: ambulatory. Date/Time Provider Initiated Documentation: 12/06/24 07:51. Limitations to Documentation: no limitations. Information obtained by: patient and old records reviewed. HPI Narrative: This is a 59-year-old female patient with a history of autoimmune hepatitis, osteoarthritis, and IBS who is presenting for evaluation of a skin lesion on her left hand. She reports that this has been present for about a month, initially she thought that it was an injury sustained during a cat scratch, has noted a firm nodule with an overlying crust or scab. She reports that she thought it might be a boil, and attempted to unroofed it herself using an emery board. This did cause significant irritation, no fluid or drainage was noted. The patient contacted her primary care provider requesting that it be lanced, they stated that they would not perform that procedure and recommended that she come for an evaluation at the emergency department. She states that she has not noted any other skin lesions, has not had fever, chills, or any other systemic symptoms. No other trauma to that area. Related Data Home Medications ?Medication ?Instructions ?Recorded ?Confirmed azathioprine 50 mg tablet 50 mg PO DAILY 01/14/13 12/06/24 hydroxychloroquine 200 mg tablet 200 mg PO BID 08/19/14 12/06/24 mycophenolate mofetil 500 mg 500 mg PO BID 10/25/23 12/06/24 tablet (CellCept) prednisone 5 mg tablet 5 mg PO DAILY 10/25/23 12/06/24 bupropion HCl 150 mg tablet,12 hr 150 mg PO BID #60 tabs 07/24/24 12/06/24 sustained-release cyclobenzaprine 10 mg tablet 10 mg PO HS PRN muscle spasm #30 07/24/24 12/06/24 tabs pregabalin 50 mg capsule (Lyrica) 50 mg PO DAILY #90 caps 07/24/24 12/06/24 diclofenac sodium 3 % topical gel 1 applic topical BID apply to R 08/29/24 12/06/24 (Solaraze) TMJ #100 grams pregabalin 75 mg capsule 75 mg PO QHS #90 caps 11/14/24 12/06/24 Previous Rx's ?Medication ?Instructions ?Recorded bupropion HCl 150 mg tablet,12 hr 150 mg PO BID #60 tabs 07/24/24 sustained-release cyclobenzaprine 10 mg tablet 10 mg PO HS PRN muscle spasm #30 07/24/24 tabs pregabalin 50 mg capsule (Lyrica) 50 mg PO DAILY #90 caps 07/24/24 diclofenac sodium 3 % topical gel 1 applic topical BID apply to R 08/29/24 (Solaraze) TMJ #100 grams pregabalin 75 mg capsule 75 mg PO QHS #90 caps 11/14/24 Allergies Allergy/AdvReac Type Severity Reaction Status Date / Time sumatriptan succinate (From Allergy Unknown Verified 12/06/24 07:51 Imitrex) enoxaparin sodium (From AdvReac Severe severe Verified 12/06/24 07:51 Lovenox) bleeding acetaminophen (From Tylenol) AdvReac hx Verified 12/06/24 07:51 hepeatits e NSAIDS (Non-Steroidal AdvReac Unknown Verified 12/06/24 07:51 Anti-Inflamma sumatriptan (From Imitrex) AdvReac muscle Verified 12/06/24 07:51 spasms calcium citrate Allergy Intermediate Nausea Uncoded 12/06/24 07:51 diclofenac subicronized Allergy Unknown unkown Uncoded 12/06/24 07:51 General Stated Complaint: GenMedical MANDA: 4 Exam Narrative Exam Narrative: Gen: Awake and alert, in no apparent distress HEENT: Non-icteric sclera Neck: Supple Lungs: No apparent respiratory distress, normal respiratory effort. CV: Appears well perfused Abdomen: Non-distended MSK: Moves 4 extremities without apparent limitation in ROM Skin: Visualized skin without rashes, cyanosis. The patient's left hand over the dorsal aspect has an approximately 1 cm firm raised nodule with an overlying keratinized crust. She does not have any palpable fluctuance or discharge, no surrounding redness, induration, or warmth. Distal to the lesion she has preserved sensation, circulation and brisk capillary refill, and movement of the fingers. Neuro: Normal Gait, no obvious focal deficits or facial asymmetry. Speaks in full, clear sentences. Psych: Appropriate for situation. Course Vital Signs Vital signs: Vital Signs Temperature 37 C 12/06/24 07:47 Pulse 86 12/06/24 07:47 Respiratory Rate 18 12/06/24 07:47 Blood Pressure 123/70 12/06/24 07:47 Pulse Oximetry 100 12/06/24 07:47 Temperature 37 C 12/06/24 07:47 Pulse 86 12/06/24 07:47 Respiratory Rate 18 12/06/24 07:47 Blood Pressure 123/70 12/06/24 07:47 Blood Pressure Position Sitting 12/06/24 07:47 Pulse Oximetry 100 12/06/24 07:47 Oxygen Delivery Method Room Air 12/06/24 07:47 Oxygen Flow Rate 0 12/06/24 07:47 Pain Level 7 12/06/24 07:47 Medical Decision Making This is a 59-year-old female patient presented for evaluation of a skin lesion on her hand. My differential includes but is not limited to malignancy, certainly squamous cell carcinoma and associated skin cancers were considered given the sun exposed area and the duration of time since the lesion occurred. Exam is not consistent with an abscess or boil, cellulitis, and I do not think it would benefit from an incision and drainage here in the emergency department, nor oral antibiotics. She has not had any trauma to suggest fracture or dislocation, and I think that this is less likely to represent cat scratch disease given the duration of symptoms over 1 month without fever, or associated infectious findings. I provided a referral to establish with the [facility] dermatology team as I think this would benefit from urgent biopsy. At this time, the patient has had a full medical evaluation and is safe for discharge to home. They are hemodynamically stable, ambulatory, and tolerating PO. They are understanding of the follow-up plan and return precautions. They left our facility without incident. Blaire Frye MD [facility] All Active Problems (Updated 12/06/24 @ 08:27 by Blaire Frye MD) Skin lesion of hand (Acute) TMJ (temporomandibular joint disorder) (Acute) TMJ arthralgia (Acute) History of depression (Acute) Greater trochanteric pain syndrome (Acute) Lumbar radiculopathy (Acute) Facet arthropathy, lumbar (Acute) Degenerative disc disease, lumbar (Acute) Disorientated (Acute) Numbness of right hand (Acute) Pain of left hip joint (Acute) Irritability and anger (Acute) Bunion (Acute) Hx of bariatric surgery (Acute) History of colon polyps (Acute) Feeling irritable (Acute) Senile osteoporosis (Acute) Spasm (Acute) Low back pain (Acute) Pain in thoracic spine (Acute) Joint pain (Acute) Arthritis (Acute) Follicular cyst of skin and subcutaneous tissue (Acute) Blood in urine (Acute) Cirrhosis of liver (Acute) Autoimmune hepatitis (Acute) Peritoneal adhesion (Acute) IBS (irritable bowel syndrome) (Chronic) Slow transit constipation (Acute) Incisional hernia (Acute) Seasonal allergic rhinitis (Acute) Esophageal varices without bleeding (Acute) Psychophysiologic insomnia (Acute) Nicotine dependence (Acute) Anemia (Chronic) Vitamin B deficiency (Acute) Pain of left sacroiliac joint (Acute) Iliotibial band syndrome of left side (Acute) Trochanteric bursitis, left hip (Acute) Osteoarthritis of left hip (Acute) Left hip pain (Acute) Asymptomatic microscopic hematuria (Acute) Medical History Constipation TOBACCO USE DISORD SURGICALLY INDUCED MENOPAUSE Obesity Intertrigo Hyperlipidemia H/O HTN H/O CERVICAL CA H/O ANXIETY/DEPRESSION AUTOIMMUNE HEPATIT ARTHRITIS NOS Surgical History Hx of colonoscopy 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) Hx of cataract removal with insertion of prosthetic lens Hx of hernia repair Sebaceous cyst (~10/2022) head and neck Tonsillectomy and adenoidectomy Oophrectomy, Right Oophrectomy, Left Abdominal hysterectomy Gastric Bypass BY KYLE REGAN MD IN 2004 Cholecystectomy Appendectomy Family History Son Alcohol use disorder Substance use disorder Anxiety Grandson Anxiety ADHD Granddaughter ADHD Anxiety Aunt Bone cancer Mother Depression Diabetes Hypertension Social History Smoking/Tobacco Use Status: Former Tobacco Use tobacco type: cigarettes Quit Date: 07/21/21 Tobacco: How many years used: 25 Second Hand Exposure: No Smoking risk assessment performed?: Yes Alcohol Intake: former Drug use: Never Substance use type: does not use Adopted: No Caregiver/Support person: No Foster care: No Household members: significant other Housing: house Number of Children: 2 number of grandchildren: 8 Communication Needs: None Education Level: high school Do you need help understanding health information?: Rarely current occupation: Asst/Loading Dock Helper Pets and animals: Yes (1 dog, 1 cat, fish) Pets and animals: cat(s), dog(s), fish and other Details: 15 chickens, 1 rooster Sexually active: Yes Do you think of yourself as: straight/heterosexual Current gender identity: female What is your relationship status?: living with partner How often do you talk on the phone with friends or family?: once per week How often do you get together with friends or relatives?: once per week How often do you attend nondenominational or baptist services?: 1-3 times per year Do you belong to any clubs or organized social groups?: no Panel score (0-1 are the most socially isolated patients): 1 What type of physical activity do you participate in: additional Details: 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 Duration: > 90 minutes/day Frequency: daily Peggy/Jainism: [employer] Special peggy needs: No Seatbelt use: always Helmet use: Yes Drive intox or ride w/intox armor reconnaissance vehicle driver: No Do you feel safe at home: Yes Do you feel safe in your relationship?: Yes
[2024-12-06 08:33] VITALS: BP 123/70; PULSE 86; RESP 18; RESP 19; TEMP 37; O2SAT 100
== END 2024-12-06 08:36 | disposition home or self-care (01) ==
LOC: ER 08:35
PROVIDERS: Emergency Provider Emergency Medicine; PCP Nurse Practitioner Family
DX: D48.5 Neoplasm of uncertain behavior of skin (principal)
CPT/HCPCS: 99282; 99281